=== PATIENT | male | born 1950 | race Caucasian/White ===

== ENCOUNTER 2018-04-18 16:54 | Inpatient (IN) | payer MEDICARE, OTHER, SELFPAY ==
[2018-04-18] VITALS (8 sets, daily range): BP systolic 122–142; BP diastolic 67–75; PULSE 69–81; RESP 16–20; TEMP 36.6; O2SAT 92–97; BMI 39.4; BMI 39.3
--- NOTE | 2018-04-18 17:11 | EKG12_ITS ---
Test Reason : SOB Blood Pressure : / mmHG Vent. Rate : 067 BPM Atrial Rate : 067 BPM P-R Int : 162 ms QRS Dur : 086 ms QT Int : 404 ms P-R-T Axes : 035 050 040 degrees QTc Int : 426 ms Normal sinus rhythm Normal ECG Confirmed by LITTLE POE MD ([id number]), medical transcription editor HE TRAN ([id number]) on 04/22/2018 3:37:57 PM Referred By: Confirmed By:LITTLE POE MD
--- NOTE | 2018-04-18 17:15 | ED.DCSUM_ITS ---
- ER Visit Summary Date of Service: 04/18/18 Chief Complaint: Shortness of breath History of Present Illness: The patient is a 67 M presenting with shortness of breath. He states this has been ongoing for the past week but worsened today. He has a productive cough. He denies chest pain. Denies fever. He has had rhinorrhea and sore throat. He was seen at urgent care on April 10. At that time he was given an albuterol inhaler, doxycycline, guaifenesin, prednisone. He finished the prednisone and is still taking doxycycline. He went back to urgent care today and they sent him to the ED for further evaluation. Physical Examination: Vitals are stable. Patient is afebrile. Alert no acute distress. HEENT exam pharyngeal erythema with no exudate, uvula midline. No tongue swelling Neck is supple. Lungs are diminished bilaterally. Heart is regular rate and rhythm. Abdomen is soft nontender nondistended. Extremities are unremarkable. Skin is warm and dry. No rash No focal neurologic deficit. Remainder of exam is unremarkable. Emergency Department Course and Treatment: Patient was given albuterol, Atrovent aerosols. EKG is sinus rate 67. CBC shows a white count 13.2. Chemistries show glucose 136. Troponin is negative. D-dimer is negative. Rapid strep and rapid flu were both negative. Chest x-ray shows no acute process. He is given Solu-Medrol IV. With ambulation his pulse ox is 85% on room air. Will discuss with the hospitalist for admission. Disposition: Admission Impression: Bronchitis, hypoxia This note was generated with [email or web address] dictation software. It may contain incorrect words, spelling, and punctuation that were not noted in review of the chart prior to signing ED Disposition - Plan for ED Patient: Chief Complaint: Shortness of Breath Referrals: Trisha Barros MD [Primary Care Provider] -
--- NOTE | 2018-04-18 17:20 | RAD_ITS ---
STUDY: X-RAY CHEST REASON FOR EXAM: Male, 67 years old. Shortness of breath TECHNIQUE: Single frontal view of the chest. COMPARISON: None. FINDINGS: The lungs are clear and expanded. There is no demonstrated pleural abnormality. Normal size heart. Normal mediastinum and valerio. Normal visualized pulmonary arteries. Normal visualized aortic arch and descending thoracic aorta. Normal visualized thoracic spine. Normal visualized ribs, clavicles, and shoulders. There is no demonstrated abnormality of the visualized soft tissue structures of the upper abdomen. RAD/Chest 1 View (Portable) IMPRESSION: Normal x-ray examination of the chest. Electronically Signed: Leroy Solano MD at 18:26 EST , Service support ,
[2018-04-18 17:31] LABS: Absolute Lymphocyte Count 2.74 X10^3/ul (0.83-4.51); Absolute Neutrophil Count 8.8 X10^3/uL (2.0-7.7); Basophil# 0.04 X10^3/uL; Basophil% 0.3 % (0-1); Eosinophil# 0.54 X10^3/uL; Eosinophils% 4.1 % (0-5); Hematocrit 49.9 % (40-54); Hemoglobin 15.9 g/dl (13.0-16.5); Lymphocyte # 2.74 X10^3/ul (4.0); Lymphocyte % 20.7 % (19-41); Mean Corp Hgb Conc 31.9 g/gl (32-36); Mean Corpuscular Hgb 28.6 pg (27.0-32.0); Mean Corpuscular Volume 89.7 fL (80-94); Mean Platelet Vol. 9.3 fl (6.2-12.0); Monocyte# 1.03 X10^3/uL; Monocyte% 7.8 % (0-10); Neutrophil # 8.82 X10^3/uL (2.7-7.7); Neutrophil % 66.6 % (47-70); Platelet Count 292 K/mm3 (150-450); RBC Distribution Width CV 14.5 % (11.6-14.6); RBC Distribution Width SD 46.9 fl (35.1-43.9); Red Blood Count 5.56 M/mm3 (4.6-6.2); White Blood Count 13.2 K/mm3 (4.4-11.0)
[2018-04-18] MEDS: Albuterol 2.5 MG/3 ML VIAL.NEB. INHALATION ×2 (17:32→17:42)
[2018-04-18] MEDS: Ipratropium/Albuterol Sulfate 3 ML AMPUL.NEB INHALATION ×2 (17:32→23:01)
[2018-04-18 17:56] LABS: Anion Gap 6 (5-15); BUN 10 mg/dL (7-18); BUN/Creat Ratio 13.4 RATIO (10-20); Calcium,Total 9.3 mg/dL (8.5-10.1); Chloride 102 mmol/L (98-107); Creatinine, Serum 0.74 mg/dL (0.70-1.30); EST Glomerular Filtration Rate 111 mL/min (>60); Est Glom Filt Rate - Afr Amer 134 mL/min (>60); Glucose 136 mg/dL (74-106); Sodium Level 140 mmol/L (136-145)
[2018-04-18 17:57] LABS: POSITIVE COUNT NO; POSITIVE DIFFERENTIAL NO; POSITIVE MORPHOLOGY NO
[2018-04-18] MEDS: MethylPREDNISolone 125 MG/2 ML Vial IV (18:58)
--- NOTE | 2018-04-18 20:02 | HP.PCM_ITS ---
Problem List (1) Acute and chronic respiratory failure with hypoxia Status: Chronic (2) Possible COPD/obesity hypoventilation sy Status: Acute (3) Traumatic open wound of left lower leg with infection Status: Acute (4) Skin tear of left lower leg without complication Status: Acute (5) Venous insufficiency of both lower extremities Status: Chronic (6) Nonhealing ulcer of right lower leg Status: Acute (7) Hypothyroidism Status: Chronic (8) 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 (9) Venous insufficiency of both lower extremities Status: Chronic (10) Traumatic open wound of right lower leg with delayed healing Status: Acute (11) Traumatic open wound of right lower leg with infection Status: Acute History of Present Illness Date of Admission: 04/18/18 Chief Complaint: Shortness of breath, wheezing for 2-3 weeks The patient is a 67 year old M with history of trauma with big tumor board fell on his head status post left-sided weakness and, in 1970s, bilateral lower legs venous insufficiency with history of wound came to ER with shortness of breath and wheezing for the last 2-3 weeks. Patient also has cough with a small clear sputum. He complains of URI with sore throat and rhinorrhea. He was seen at urgent care number first and was given doxycycline, albuterol inhaler, Mucinex and prednisone. He completed about 10 days of doxycycline and prednisone is still shortness of breath, wheezing and cough not getting better. He gets easily short of breath on mild exertion. He went back to see urgent care and was sent to ER. He denies fever or chills. He was not able to lay down yesterday and slept on the recliner. Denies history of COPD/CHF/smoking but I think he might have undiagnosed COPD or obesity hypoventilation syndrome. In ED, vitals pulse ox 95% on room air but on walking pulse ox dropped to 85% on room air. Rapid strep and flu test are negative. Mild leukocytosis. Chest x- ray shows underventilation But no acute process. EKG normal sinus rhythm at 67 bpm [] Past Medical History Past Medical History (Chronic Problems): Chronic Problems Acute and chronic respiratory failure with hypoxia (Chronic) Venous insufficiency of both lower extremities (Chronic) Hypothyroidism (Chronic) Hemiplegia affecting left nondominant side (Chronic) Venous insufficiency of both lower extremities (Chronic) Allergies No Known Allergies Allergy (Verified 04/18/18 16:55) Home Medications: Ambulatory Orders Medication Instructions Recorded Albuterol IH (ProAir) [Proair Hfa] 2 puff INHALATION Q4H PRN PRN 04/18/18 Atorvastatin Calcium 10 mg PO QHS 04/18/18 Betamethasone Valerate [Valisone 1 applicatio TOPICAL DAILY 04/18/18 0.1% Cream] Doxycycline Monohydrate 100 mg PO BID 04/18/18 Levothyroxine [Synthroid] 25 mcg PO SUSA 04/18/18 Levothyroxine [Synthroid] 50 mcg PO MOTUWETHFR 04/18/18 Naproxen 500 mg PO BID 04/18/18 Oxybutynin Chloride [Ditropan Xl] 5 mg PO DAILY 04/18/18 Smoking Status: Never smoker - *Family History Paternal History Items: No pertinent history Review of Systems Constitutional: Reports: Weakness. Denies: Chills, Fever HEENT: Reports: Hard of Hearing, Nasal Congestion, Post Nasal Drip, Sinus Congestion, Sinus Drainage, Sore Throat. Denies: Head Aches Cardiovascular: Reports: Edema. Denies: Chest Pain, Palpitations Respiratory: Reports: Cough, Shortness of breath upon exertion, Sputum production, Wheezing. Denies: Shortness of breath at rest Gastrointestinal: Denies: Abdominal Pain, Nausea, Vomiting Genitourinary: Denies: Dysuria Musculoskeletal: Denies: Joint Pain, Joint Tenderness Skin: Reports: Rash, Skin Changes - Venous dermatitis in both lower legs. Small scab at the lateral aspect of left leg. No open ulcer Neurological: Denies: Numbness, Tingling, Focal weakness Psychiatric: Denies: Anxiety, Depression, Homicidal Ideations, Suicidal Ideations Hematologic/ Lymphatic: Denies: Easy Bruising, Easy Bleeding VTE Information - Inpt Only VTE Present on Admission: No VTE Mechan Device Prophylaxis: Knee High ZACH Hose VTE Pharm Prophylaxis ordered?: Yes Patient Problems: Active and Suspected Problems Possible COPD/obesity hypoventilation sy (Acute) - Physical Exam General: Alert, Oriented x3, Cooperative HEENT: Atraumatic, PERRLA, EOMI, Normocephalic Oral: - - Deep erythema present over soft palate, posterior pharyngeal wall. No ulcer seen Neck: Supple, No JVD, Negative Carotid Bruits Lungs: Diminished, Rhonchi, Short of Breath, Wheezes, - - Diffuse wheezing and egophony heard Cardiovascular: Regular rate, Regular Rhythm, Normal S1, Normal S2, No murmurs Abdomen: Bowel Sounds Present, Soft, Non Tender, Non-Distended Extremities: Capillary Refill Less than 3 Seconds, Diminished Peripheral Pulses - Of both lower legs below knee, Edema Skin: Rash Present - Venous dermatitis over both lower legs. Diminished pulsation Musculoskeletal: No Tenderness to Palpation of Joints or Extremities Neurological: Cranial nerves II-XII grossly intact Psych/Mental Status: Normal Affect, Appropriate Vital Signs Temp Pulse Resp BP Pulse Ox 97.8 F 78 16 122/67 H 97 04/18/18 16:55 04/18/18 19:04 04/18/18 19:04 04/18/18 19:04 04/18/18 19:04 Oxygen Delivery Method Room Air Weight: 230 lb Body Mass Index (BMI) 39.4 Microbiology Past 72 Hours 04/18/18 17:40 Influenza Types A,B Direct FA (MARY KATE) - Final Mucosa - Nose 04/18/18 17:15 Group A Streptococcus Rapid Screen - Preliminary Mucosa - Throat Laboratory Tests Past 24 Hrs 04/18/18 04/18/18 04/18/18 17:23 17:23 17:23 WBC 13.2 H RBC 5.56 Hgb 15.9 Hct 49.9 MCV 89.7 MCH 28.6 MCHC 31.9 L RDW 14.5 RDW Differential 46.9 H Plt Count 292 MPV 9.3 Immature Gran % (Auto) 0.500 Neut % (Auto) 66.6 Lymph % (Auto) 20.7 [place] % (Auto) 7.8 Eos % (Auto) 4.1 Baso % (Auto) 0.3 Absolute Neuts (auto) 8.8 H Absolute Lymphs (auto) 2.74 Total Counted Not Reportable D-Dimer Quant (PE/DVT) 0.30 Sodium 140 Potassium 4.0 Chloride 102 Carbon Dioxide 32.0 Anion Gap 6 BUN 10 Creatinine 0.74 Estim Creat Clear Calc 59.20 Est GFR (MDRD) Af Amer 134 Est GFR (MDRD) Non-Af 111 BUN/Creatinine Ratio 13.4 Glucose 136 H Calcium 9.3 Troponin I < 0.015 Assessment/Plan All Active Problems Possible COPD/obesity hypoventilation sy (Acute) Traumatic open wound of left lower leg with infection (Acute) Skin tear of left lower leg without complication (Acute) Nonhealing ulcer of right lower leg (Acute) Traumatic open wound of right lower leg with delayed healing (Acute) Traumatic open wound of right lower leg with infection (Acute) The patient is a 67 year old M with history of trauma with big tumor board fell on his head status post left-sided weakness and, in 1970s, bilateral lower legs venous insufficiency with history of wound came to ER with shortness of breath and wheezing for the last 2-3 weeks. Patient also has cough with a small clear sputum. He complains of URI with sore throat and rhinorrhea. He was seen at urgent care number first and was given doxycycline, albuterol inhaler, Mucinex and prednisone. He completed about 10 days of doxycycline and prednisone is still shortness of breath, wheezing and cough not getting better. He gets easily short of breath on mild exertion. He went back to see urgent care and was sent to ER. He denies fever or chills. He was not able to lay down yesterday and slept on the recliner. Denies history of COPD/CHF/smoking but I think he might have undiagnosed COPD or obesity hypoventilation syndrome. In ED, vitals pulse ox 95% on room air but on walking pulse ox dropped to 85% on room air. Rapid strep and flu test are negative. Mild leukocytosis. Chest x- ray shows underventilation But no acute process. EKG normal sinus rhythm at 67 bpm. 1. Acute hypoxic respiratory failure probably from undiagnosed COPD exacerbation: Patient is being admitted to regular MedSurg floor. On COPD protocol. Oxygen therapy. 2. Possible undiagnosed COPD/obesity hypoventilation with exacerbation: Started on DuoNeb, albuterol as needed, incentive spirometry, chest physiotherapy, Mucinex. BNP ordered. 2D echo tomorrow a.m to rule out heart failure/pulmonary hypertension. Respiratory panel ordered. Urinary antigens and sputum culture ordered. Patient will need outpatient PFT and sleep study. 3. Possible viral bronchitis 4. Bilateral lower legs chronic venous insufficiency with stasis dermatitis: Patient follows Dr. Navarro. Patient had venous laser surgery in the past. Bilateral knee-high ZACH hose. Venous Doppler ordered to rule out DVT. 5. Other chronic comorbidities include hypothyroidism, hemiplegia of left nondominant site most probably traumatic in nature as per patient's and history of skin tear nonhealing ulcer in the left leg.: Currently patient does not have open ulcer in the left leg. Wound care nurse consult ordered for f joether opinion. Calmoseptine ointment. DVT prophylaxis: On Lovenox This note was generated with [employer] dictation software. Every effort was made to ensure accuracy, however computerized corrugator machine operator mistakes may persist. Code Visit Inpatient E&M: 89541 Init Hosp L3
[2018-04-18] MEDS: Atorvastatin Calcium 10 MG Tablet PO (22:03)
[2018-04-18] MEDS: Enoxaparin 40 MG/0.4 ML Syringe SC (22:04)
[2018-04-18] MEDS: guaiFENesin 1,200 MG Tablet 1200 MG PO (22:04)
[2018-04-18 22:15] LABS: BNP,B-Type NATRIURETIC PEPTIDE 10.3 pg/mL (0-100)
[2018-04-19] VITALS (10 sets, daily range): BP systolic 111–143; BP diastolic 66–90; PULSE 76–96; RESP 16–20; TEMP 36.7–37.2; O2SAT 92–96
--- NOTE | 2018-04-19 05:55 | ECHOCS_ITS ---
Reason For Study: SOB/ Wheezing Procedure This was a 2D Doppler, Color Flow transthoracic echocardiogram. The study was technically difficult. Contrast injection was performed. Exam performed portable in patient room. Left Ventricle Normal LV size. Moderate concentric left ventricular hypertrophy. The estimated ejection fraction is 75 %. Stage 1 diastolic dysfunction. No regional wall motion abnormalities noted. Right Ventricle Normal size and thickness. Normal systolic function. Atria Normal left atrium. Normal right atrium. Normal atrial septum. Mitral Valve The mitral valve is structurally normal. No prolapse or stenosis seen. Tricuspid Valve Normal tricuspid valve. Unable to estimate RV systolic pressure due to inadequate jet, pulmonary artery pressure probably normal. Aortic Valve Normal aortic valve. Trisinus/trileaflet aortic valve. Pulmonic Valve The pulmonic valve is not well visualized. Great Vessels Normal aortic root. Normal arch. Pericardium/Pleural No pericardial effusion. Medication Diluted definity 2ml given slow IV push to enhance endocardial definition. MMode/2D Measurements & Calculations LVIDd: 3.7 cm IVSd: 1.6 cm Ao root diam: 4.0 cm LVIDs: 1.8 cm LVPWd: 1.3 cm FS: 51.0 % Time Measurements MV dec time: 0.18 sec Doppler Measurements & Calculations MV E max jean marie: 74.1 cm/sec Lat Peak E' Jean Marie: 8.1 cm/sec Med Peak E' Jean Marie: 7.0 cm/sec MV A max jean marie: 103.1 cm/sec E/E' lat: 9.1 E/E' med: 10.5 MV E/A: 0.72 MV V2 max: 120.4 cm/sec MV P1/2t max jean marie: 102.1 cm/sec Ao V2 max: 130.0 cm/sec MV max P.8 mmHg MV P1/2t: 48.8 msec Ao max P.8 mmHg MV V2 mean: 75.2 cm/sec MV dec slope: 612.5 cm/sec2 Ao V2 mean: 92.0 cm/sec MV mean P.5 mmHg MVA(P1/2t): 4.5 cm2 Ao mean P.8 mmHg MV V2 VTI: 23.0 cm Ao V2 VTI: 24.0 cm LV V1 max: 111.2 cm/sec PA V2 max: 116.5 cm/sec LV V1 max P.9 mmHg LV V1 mean P.7 mmHg LV V1 mean: 76.2 cm/sec LV V1 VTI: 17.7 cm Interpretation Summary Moderate concentric left ventricular hypertrophy. The estimated ejection fraction is 75 %. Stage 1 diastolic dysfunction. Unable to estimate RV systolic pressure due to inadequate jet, pulmonary artery pressure probably normal. Compared to echo report dated 08/10/2009, no appreciable changes noted. The study was technically difficult. Contrast injection was performed. Ordering Physician: Tal Ronquillo Referring Physician: Trisha Barros M.D. Performed By: Phani Kovacs RCS
[2018-04-19] MEDS: Levothyroxine 25 MCG TABLET PO (05:57)
[2018-04-19] MEDS: Ipratropium/Albuterol Sulfate 3 ML AMPUL.NEB INHALATION ×4 (06:44→19:03)
[2018-04-19 07:20] LABS: Absolute Lymphocyte Count 1.01 X10^3/ul (0.83-4.51); Absolute Neutrophil Count 12.9 X10^3/uL (2.0-7.7); Basophil# 0.01 X10^3/uL; Basophil% 0.1 % (0-1); Eosinophil# 0.01 X10^3/uL; Eosinophils% 0.1 % (0-5); Hematocrit 46.2 % (40-54); Hemoglobin 15.2 g/dl (13.0-16.5); Lymphocyte # 1.01 X10^3/ul (4.0); Lymphocyte % 7.2 % (19-41); Mean Corp Hgb Conc 32.9 g/gl (32-36); Mean Corpuscular Hgb 28.7 pg (27.0-32.0); Mean Corpuscular Volume 87.2 fL (80-94); Mean Platelet Vol. 9.8 fl (6.2-12.0); Monocyte# 0.07 X10^3/uL; Monocyte% 0.5 % (0-10); Neutrophil # 12.94 X10^3/uL (2.7-7.7); Neutrophil % 91.6 % (47-70); POSITIVE COUNT NO; POSITIVE DIFFERENTIAL NO; POSITIVE MORPHOLOGY NO; Platelet Count 310 K/mm3 (150-450); RBC Distribution Width CV 14.4 % (11.6-14.6); RBC Distribution Width SD 45.9 fl (35.1-43.9); White Blood Count 14.1 K/mm3 (4.4-11.0)
[2018-04-19 07:46] LABS: ALB/GLOB Ratio 0.8 RATIO (0.9-2.4); AST(SGOT) 12 U/L (15-37); Alanine Aminotransfer ALT/SGPT 25 U/L (16-61); Albumin, Serum 3.1 g/dL (3.2-5.0); Alkaline Phosphatase 107 U/L (45-117); Anion Gap 8 (5-15); BUN 10 mg/dL (7-18); Calcium,Total 8.8 mg/dL (8.5-10.1); Chloride 103 mmol/L (98-107); Creatinine, Serum 0.83 mg/dL (0.70-1.30); EST Glomerular Filtration Rate 97 mL/min (>60); Est Glom Filt Rate - Afr Amer 118 mL/min (>60); Estimated Creatinine Clearance 71.33 ml/min; Globulin 3.9 g/dL (2.2-4.2); Glucose 225 mg/dL (74-106); Sodium Level 139 mmol/L (136-145); T4 Free Direct 0.87 ng/dL (0.76-1.46); Thyroid Stim Hormone (TSH) 0.51 uIU/mL (0.358-3.74)
[2018-04-19 08:06] LABS: Hemoglobin A1c 6.5 % (4.2-6.3)
--- NOTE | 2018-04-19 08:34 | NURSING ---
cardiac in room doing echo test
[2018-04-19] MEDS: Oxybutynin 5 MG Tablet PO (08:52)
[2018-04-19] MEDS: Enoxaparin 40 MG/0.4 ML Syringe SC (08:52)
[2018-04-19] MEDS: guaiFENesin 1,200 MG Tablet 1200 MG PO ×2 (08:53→21:25)
--- NOTE | 2018-04-19 10:34 | PCM.PN.HOSP ---
Patient Problems: Active and Suspected Problems Possible COPD/obesity hypoventilation sy (Acute) Subjective: Patient seen and examined. He was admitted yesterday with a complaint of shortness of breath and wheezing. He also assisted cough with small clear sputum and also had upper respiratory tract symptoms resolved with no rhinorrhea. He had completed a course of doxycycline and prednisone. However shortness of breath persisted and wheezing and so he came into the ED. His walking pulse ox was 85% on room in the ED and flu test done rapid strep test were negative. Chest x-ray showed underventilation. EKG was otherwise negative. He is being managed for acute hypoxic respiratory failure due to possible COPD exacerbation. He feels better today and SOB has improved. He denies any wheezing, chest pain, lightheadedness, abdominal pain, palpitations, diarrhea or vomiting. Review of systems was otherwise negative. Labs and vitals reviewed. Vitals/I&O's: Vital Signs Temp Pulse Resp BP Pulse Ox 98.6 F 90 18 129/70 H 95 04/19/18 08:45 04/19/18 08:45 04/19/18 08:45 04/19/18 08:45 04/19/18 08:45 Oxygen Delivery Method Room Air Weight: 229 lb 1 oz Body Mass Index (BMI) 39.3 Intake and Output for Last 24 Hours 04/17/18 04/18/18 04/19/18 23:59 23:59 23:59 Intake Total 600 / 600 Balance 600 / 600 General: Alert, Oriented x3, Cooperative, No apparent distress HEENT: Atraumatic, PERRLA, EOMI, Normocephalic Oral: Moist Mucosa Neck: Supple, No JVD, Negative Carotid Bruits, Negative Hepatojugular Reflux, No Nodes, No Nuchal Rigidity Lungs: Wheezes - bilateral mild wheezes and few crackles bilaterally. Cardiovascular: Regular rate, Regular Rhythm, Normal S1, Normal S2, No murmurs Abdomen: Bowel Sounds Present, Soft, Non Tender, Non-Distended, No Hepato-splenomegaly Extremities: No clubbing, No cyanosis, No edema, Capillary Refill Less than 3 Seconds Skin: No rashes, No breakdown Musculoskeletal: No Tenderness to Palpation of Joints or Extremities Lymphatic: No Cervical, Supraclavicular, or Inguinal Adenopathy Neurological: Cranial nerves II-XII grossly intact, Neuro grossly intact, Motor Exam 5/5 strength throughout Psych/Mental Status: Normal Affect, Appropriate, Alert and oriented to time, place, person, mood and affect Microbiology Past 72 Hours 04/18/18 17:15 Mucosa - Throat Group A Streptococcus Rapid Screen - Preliminary 04/18/18 22:20 Urine, Random Legionella Antigen - Final 04/18/18 22:20 Urine, Random Streptococcus pneumoniae Antigen (M - Final 04/18/18 17:40 Mucosa - Nose Influenza Types A,B Direct FA (MARY KATE) - Final Laboratory Results 04/18/18 17:23: WBC 13.2 H, RBC 5.56, Hgb 15.9, Hct 49.9, MCV 89.7, MCH 28.6, MCHC 31.9 L, RDW 14.5, RDW Differential 46.9 H, Plt Count 292, MPV 9.3, Immature Gran % (Auto) 0.500, Neut % (Auto) 66.6, Lymph % (Auto) 20.7, [place] % (Auto) 7.8, Eos % (Auto) 4.1, Baso % (Auto) 0.3, Absolute Neuts (auto) 8.8 H, Absolute Lymphs (auto) 2.74, Total Counted Not Reportable 04/18/18 17:23: D-Dimer Quant (PE/DVT) 0.30 04/18/18 17:23: Sodium 140, Potassium 4.0, Chloride 102, Carbon Dioxide 32.0, Anion Gap 6, BUN 10, Creatinine 0.74, Estim Creat Clear Calc 59.20, Est GFR (MDRD) Af Amer 134, Est GFR (MDRD) Non-Af 111, BUN/Creatinine Ratio 13.4, Glucose 136 H, Calcium 9.3, Troponin I < 0.015 04/18/18 17:23: B-Natriuretic Peptide 10.3 04/19/18 06:55: WBC 14.1 H, RBC 5.30, Hgb 15.2, Hct 46.2, MCV 87.2, MCH 28.7, MCHC 32.9, RDW 14.4, RDW Differential 45.9 H, Plt Count 310, MPV 9.8, Immature Gran % (Auto) 0.500, Neut % (Auto) 91.6 H, Lymph % (Auto) 7.2 L, [place] % (Auto) 0.5, Eos % (Auto) 0.1, Baso % (Auto) 0.1, Absolute Neuts (auto) 12.9 H, Absolute Lymphs (auto) 1.01, Total Counted Not Reportable 04/19/18 06:55: Hemoglobin A1c 6.5 H 04/19/18 06:55: Sodium 139, Potassium 4.0, Chloride 103, Carbon Dioxide 28.0, Anion Gap 8, BUN 10, Creatinine 0.83, Estim Creat Clear Calc 71.33, Est GFR (MDRD) Af Amer 118, Est GFR (MDRD) Non-Af 97, BUN/Creatinine Ratio 12.0, Glucose 225 H, Calcium 8.8, Total Bilirubin 0.40, AST 12 L, ALT 25, Alkaline Phosphatase 107, Total Protein 7.0, Albumin 3.1 L, Globulin 3.9, Albumin/Globulin Ratio 0.8 L, TSH 0.51, Free T4 0.87 Diagnostic Data Chest X-Ray 04/18/18 17:20 IMPRESSION: Normal x-ray examination of the chest. Electronically Signed: Leroy Solano MD at 18:26 EST , Service support , Current Medications Acetaminophen (Tylenol) 650 mg PO Q6H PRN PRN PRN Reason: Mild Pain (scale 0-3)/T>100.7 Al Hydroxide/Mg Hydroxide (Mylanta Ii) 30 ml PO Q6H PRN PRN PRN Reason: Gastric Burning Albuterol Sulfate (Ventolin Aerosols) 2.5 mg INHALATION Q2H PRN PRN PRN Reason: SHORTNESS OF BREATH Albuterol/Ipratropium (Duoneb) 3 ml INHALATION Q4HWA.RT MIA Last Admin: 04/19/18 06:44 Dose: 3 ml Atorvastatin Calcium (Lipitor) 10 mg PO QHS MIA Last Admin: 04/18/18 22:03 Dose: 10 mg Betamethasone Valerate (Valisone 0.1% Cream) 1 applic TOPICAL DAILY MIA; Protocol Last Admin: 04/19/18 08:53 Dose: 1 applic Bisacodyl (Dulcolax) 10 mg RECTAL DAILY PRN PRN PRN Reason: Constipation Calamine/Phenol (Calmoseptine Ointment) 1 applic TOPICAL BID [facility]; Protocol Last Admin: 04/19/18 08:52 Dose: Not Given Docusate Sodium (Colace) 200 mg PO BID PRN PRN PRN Reason: Constipation Enoxaparin Sodium (Lovenox) 40 mg SC DAILY [facility] Last Admin: 04/19/18 08:52 Dose: 40 mg Guaifenesin (Mucinex) 1,200 mg PO BID [facility] Last Admin: 04/19/18 08:53 Dose: 1,200 mg Levothyroxine Sodium (Synthroid) 25 mcg PO SuSa@0600 [facility] Last Admin: 04/19/18 05:57 Dose: 25 mcg Levothyroxine Sodium (Synthroid) 50 mcg PO MoTuWeThFr@0600 [facility] Methylprednisolone (Solu-Medrol) 40 mg IV Q8 [facility] Last Admin: 04/19/18 05:57 Dose: 40 mg Morphine Sulfate () 1 - 2 mg IV Q4H PRN PRN PRN Reason: SEVERE PAIN (6-10) Naproxen (Naprosyn) 500 mg PO BID PRN PRN PRN Reason: arthritis pain Ondansetron HCl (Zofran) 4 mg IV Q8H PRN PRN PRN Reason: Nausea Oxybutynin Chloride (Ditropan) 5 mg PO DAILY [facility] Last Admin: 04/19/18 08:52 Dose: 5 mg Oxycodone HCl (Oxyir) 5 mg PO Q4H PRN PRN PRN Reason: Moderate Pain (pain scale 4-5) Polyethylene Glycol (Miralax) 17 gm PO DAILY [facility] Last Admin: 04/19/18 08:53 Dose: Not Given Sodium Chloride () 5 - 30 ml IV UD PRN PRN Reason: SALINE FLUSH Medical Necessity - Tobacco Use Smoking Status: Never smoker Assessment/Plan All Active Problems Possible COPD/obesity hypoventilation sy (Acute) Traumatic open wound of left lower leg with infection (Acute) Skin tear of left lower leg without complication (Acute) Nonhealing ulcer of right lower leg (Acute) Traumatic open wound of right lower leg with delayed healing (Acute) Traumatic open wound of right lower leg with infection (Acute) 1. Acute hypoxic respiratory failure, due to possible COPD exacerbatin vs obesity hypoventilation syndrome Was saturating at 85% with walking pulse ox in the ED and this resolved without excision of oxygen. Does not have a history of COPD. 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 Has bilateral coarse crackles and wheezing still. BMI 39.3 obesity hypoventilation syndrome. Has never had a PFT. Continue Breathing treatments and prednisone. Titrate oxygen to maintain saturation above 92% and goal is to wean off of oxygen. BNP was just 10 ruling out any heart failure. Echo done and is pending. Influenza Screen was negative and urine for pneumonia and Legionella negative. Will need PFTs and sleep study on outpatient basis. 2. Bilateral lower extremity chronic venous insufficiency: Also stasis dermatitis. Follows up with Dr. Navarro and has had venous stasis surgery in the past. ZACH hose stockings. Duplex ordered to rule out DVT and is pending. 3. Hypothyroidism: On Synthroid. 4. 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 Leucocytosis: white cell count is 14. Likely due to steroids. No evidence of infection. Will monitor DVT prophylaxis: Haileyx Code Visit Inpatient E&M: 53240 Subs Hosp L3
--- NOTE | 2018-04-19 10:39 | PN_ITS ---
Patient Problems: Active and Suspected Problems Possible COPD/obesity hypoventilation sy (Acute) Subjective: Patient seen and examined. He was admitted yesterday with a complaint of shortness of breath and wheezing. He also assisted cough with small clear sputum and also had upper respiratory tract symptoms resolved with no rhin orrhea. He had completed a course of doxycycline and prednisone. However shortness of breath persisted and wheezing and so he came into the ED. His walking pulse ox was 85% on room in the ED and flu test done rapid strep test were negative. Chest x-ray showed underventilation. EKG was otherwise negative. He is being managed for acute hypoxic respiratory failure due to possible COPD exacerbation. He feels better today and SOB has improved. He denies any wheezing, chest pain, lightheadedness, abdominal pain, palpitations, diarrhea or vomiting. Review of systems was otherwise negative. Labs and vitals reviewed. Vitals/I&O's: Vital Signs Temp Pulse Resp BP Pulse Ox 98.6 F 90 18 129/70 H 95 04/19/18 08:45 04/19/18 08:45 04/19/18 08:45 04/19/18 08:45 04/19/18 08:45 Oxygen Delivery Method Room Air Weight: 229 lb 1 oz Body Mass Index (BMI) 39.3 Intake and Output for Last 24 Hours 04/17/18 04/18/18 04/19/18 23:59 23:59 23:59 Intake Total 600 / 600 Balance 600 / 600 General: Alert, Oriented x3, Cooperative, No apparent distress HEENT: Atraumatic, PERRLA, EOMI, Normocephalic Oral: Moist Mucosa Neck: Supple, No JVD, Negative Carotid Bruits, Negative Hepatojugular Reflux, No Nodes, No Nuchal Rigidity Lungs: Wheezes - bilateral mild wheezes and few crackles bilaterally. Cardiovascular: Regular rate, Regular Rhythm, Normal S1, Normal S2, No murmurs Abdomen: Bowel Sounds Present, Soft, Non Tender, Non-Distended, No Hepato- splenomegaly Extremities: No clubbing, No cyanosis, No edema, Capillary Refill Less than 3 Seconds Skin: No rashes, No breakdown Musculoskeletal: No Tenderness to Palpation of Joints or Extremities Lymphatic: No Cervical, Supraclavicular, or Inguinal Adenopathy Neurological: Cranial nerves II-XII grossly intact, Neuro grossly intact, Motor Exam 5/5 strength throughout Psych/Mental Status: Normal Affect, Appropriate, Alert and oriented to time, place, person, mood and affect Microbiology Past 72 Hours 04/18/18 17:15 Mucosa - Throat Group A Streptococcus Rapid Screen - Preliminary 04/18/18 22:20 Urine, Random Legionella Antigen - Final 04/18/18 22:20 Urine, Random Streptococcus pneumoniae Antigen (M - Final 04/18/18 17:40 Mucosa - Nose Influenza Types A,B Direct FA (MARY KATE) - Final Laboratory Results 04/18/18 17:23: WBC 13.2 H, RBC 5.56, Hgb 15.9, Hct 49.9, MCV 89.7, MCH 28.6, MCHC 31.9 L, RDW 14.5, RDW Differential 46.9 H, Plt Count 292, MPV 9.3, Immature Gran % (Auto) 0.500, Neut % (Auto) 66.6, Lymph % (Auto) 20.7, [place] % (Auto) 7.8, Eos % (Auto) 4.1, Baso % (Auto) 0.3, Absolute Neuts (auto) 8.8 H, Absolute Lymphs (auto) 2.74, Total Counted Not Reportable 04/18/18 17:23: D-Dimer Quant (PE/DVT) 0.30 04/18/18 17:23: Sodium 140, Potassium 4.0, Chloride 102, Carbon Dioxide 32.0, Anion Gap 6, BUN 10, Creatinine 0.74, Estim Creat Clear Calc 59.20, Est GFR (MDRD) Af Amer 134, Est GFR (MDRD) Non-Af 111, BUN/Creatinine Ratio 13.4, Glucose 136 H, Calcium 9.3, Troponin I < 0.015 04/18/18 17:23: B-Natriuretic Peptide 10.3 04/19/18 06:55: WBC 14.1 H, RBC 5.30, Hgb 15.2, Hct 46.2, MCV 87.2, MCH 28.7, MCHC 32.9, RDW 14.4, RDW Differential 45.9 H, Plt Count 310, MPV 9.8, Immature Gran % (Auto) 0.500, Neut % (Auto) 91.6 H, Lymph % (Auto) 7.2 L, [place] % (Auto) 0.5, Eos % (Auto) 0.1, Baso % (Auto) 0.1, Absolute Neuts (auto) 12.9 H, Absolute Lymphs (auto) 1.01, Total Counted Not Reportable 04/19/18 06:55: Hemoglobin A1c 6.5 H 04/19/18 06:55: Sodium 139, Potassium 4.0, Chloride 103, Carbon Dioxide 28.0, Anion Gap 8, BUN 10, Creatinine 0.83, Estim Creat Clear Calc 71.33, Est GFR (MDRD) Af Amer 118, Est GFR (MDRD) Non-Af 97, BUN/Creatinine Ratio 12.0, Glucose 225 H, Calcium 8.8, Total Bilirubin 0.40, AST 12 L, ALT 25, Alkaline Phosphatase 107, Total Protein 7.0, Albumin 3.1 L, Globulin 3.9, Albumin/Globulin Ratio 0.8 L, TSH 0.51, Free T4 0.87 Diagnostic Data Chest X-Ray 04/18/18 17:20 IMPRESSION: Normal x-ray examination of the chest. Electronically Signed: Leroy Solano MD at 18:26 EST , Service support , Current Medications Acetaminophen (Tylenol) 650 mg PO Q6H PRN PRN PRN Reason: Mild Pain (scale 0-3)/T>100.7 Al Hydroxide/Mg Hydroxide (Mylanta Ii) 30 ml PO Q6H PRN PRN PRN Reason: Gastric Burning Albuterol Sulfate (Ventolin Aerosols) 2.5 mg INHALATION Q2H PRN PRN PRN Reason: SHORTNESS OF BREATH Albuterol/Ipratropium (Duoneb) 3 ml INHALATION Q4HWA.RT MIA Last Admin: 04/19/18 06:44 Dose: 3 ml Atorvastatin Calcium (Lipitor) 10 mg PO QHS [facility] Last Admin: 04/18/18 22:03 Dose: 10 mg Betamethasone Valerate (Valisone 0.1% Cream) 1 applic TOPICAL DAILY [facility]; Protocol Last Admin: 04/19/18 08:53 Dose: 1 applic Bisacodyl (Dulcolax) 10 mg RECTAL DAILY PRN PRN PRN Reason: Constipation Calamine/Phenol (Calmoseptine Ointment) 1 applic TOPICAL BID [facility]; Protocol Last Admin: 04/19/18 08:52 Dose: Not Given Docusate Sodium (Colace) 200 mg PO BID PRN PRN PRN Reason: Constipation Enoxaparin Sodium (Lovenox) 40 mg SC DAILY [facility] Last Admin: 04/19/18 08:52 Dose: 40 mg Guaifenesin (Mucinex) 1,200 mg PO BID [facility] Last Admin: 04/19/18 08:53 Dose: 1,200 mg Levothyroxine Sodium (Synthroid) 25 mcg PO SuSa@0600 [facility] Last Admin: 04/19/18 05:57 Dose: 25 mcg Levothyroxine Sodium (Synthroid) 50 mcg PO MoTuWeThFr@0600 [facility] Methylprednisolone (Solu-Medrol) 40 mg IV Q8 [facility] Last Admin: 04/19/18 05:57 Dose: 40 mg Morphine Sulfate () 1 - 2 mg IV Q4H PRN PRN PRN Reason: SEVERE PAIN (6-10) Naproxen (Naprosyn) 500 mg PO BID PRN PRN PRN Reason: arthritis pain Ondansetron HCl (Zofran) 4 mg IV Q8H PRN PRN PRN Reason: Nausea Oxybutynin Chloride (Ditropan) 5 mg PO DAILY [facility] Last Admin: 04/19/18 08:52 Dose: 5 mg Oxycodone HCl (Oxyir) 5 mg PO Q4H PRN PRN PRN Reason: Moderate Pain (pain scale 4-5) Polyethylene Glycol (Miralax) 17 gm PO DAILY [facility] Last Admin: 04/19/18 08:53 Dose: Not Given Sodium Chloride () 5 - 30 ml IV UD PRN PRN Reason: SALINE FLUSH Medical Necessity - Tobacco Use Smoking Status: Never smoker Assessment/Plan All Active Problems Possible COPD/obesity hypoventilation sy (Acute) Traumatic open wound of left lower leg with infection (Acute) Skin tear of left lower leg without complication (Acute) Nonhealing ulcer of right lower leg (Acute) Traumatic open wound of right lower leg with delayed healing (Acute) Traumatic open wound of right lower leg with infection (Acute) 1. Acute hypoxic respiratory failure, due to possible COPD exacerbatin vs obesity hypoventilation syndrome * Was saturating at 85% with walking pulse ox in the ED and this resolved without excision of oxygen. * Does not have a history of COPD. 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 * Has bilateral coarse crackles and wheezing still. * BMI 39.3 obesity hypoventilation syndrome. Has never had a PFT. Continue * Breathing treatments and prednisone. Titrate oxygen to maintain saturation above 92% and goal is to wean off of oxygen. * BNP was just 10 ruling out any heart failure. Echo done and is pending. * Influenza Screen was negative and urine for pneumonia and Legionella negative. * Will need PFTs and sleep study on outpatient basis. * 2. Bilateral lower extremity chronic venous insufficiency: * Also stasis dermatitis. * Follows up with Dr. Navarro and has had venous stasis surgery in the past. * ZACH hose stockings. * Duplex ordered to rule out DVT and is pending. 3. Hypothyroidism: On Synthroid. 4. 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 Leucocytosis: white cell count is 14. Likely due to steroids. No evidence of infection. Will monitor DVT prophylaxis: Lovenox Code Visit Inpatient E&M: 37920 Subs Hosp L3
--- NOTE | 2018-04-19 11:03 | DCINST_ITS ---
- Discharge Diagnoses Current Active Problems: Current Active and Chronic Problems Acute and chronic respiratory failure with hypoxia (Chronic) Possible COPD/obesity hypoventilation sy (Acute) You will use the following diet at home:: Cardiac Your food should be the consistency of: Regular Your liquids should be the consistency of: Regular/Thin Discharge Activity: Return to Normal Activity Weight Bearing Status: Weight bearing as tolerated Call your doctor if you observe: Fever of 101 or Higher, Shortness of breath, Chest pain, Increased palpitations (irregular heartbeat) Allergies/Adverse Reactions: Allergies No Known Allergies Allergy (Verified 04/18/18 16:55) Medications to take at Discharge Albuterol IH (ProAir) [Proair Hfa] 2 puff INHALATION Q4H PRN PRN 04/18/18 Atorvastatin Calcium 10 mg PO QHS 04/18/18 Betamethasone Valerate [Valisone 0.1% Cream] 1 applicatio TOPICAL DAILY 04/18/18 Doxycycline Monohydrate 100 mg PO BID 04/18/18 Levothyroxine [Synthroid] 25 mcg PO SUSA 04/18/18 Levothyroxine [Synthroid] 50 mcg PO MOTUWETHFR 04/18/18 Naproxen 500 mg PO BID 04/18/18 Oxybutynin Chloride [Ditropan Xl] 5 mg PO DAILY 04/18/18 Primary Care Physician: Trisha Barros MD [Primary Care Provider] - Please follow up with your Primary Care Physician in: one week Test Results: Test results from this visit will be discussed in further detail at your follow- up appointment, if applicable. Proposed Discharge Date: 04/19/18
--- NOTE | 2018-04-19 12:13 | CM.UR ---
Addendum entered by Estela Puri 04/19/18 16:41: denied any needs at home however she did state they would like coverage built for him when going from house to car as they have no garage. Spoke with TRINA Arreola who gave me information that I passed onto them for [employer] and [employer]. Instructed to give them a call and see if they can do anything to help. Verb understanding. Armando Puri RN, CCM. Original Note: See attached leadership development manager. Met face to face with patient and . Denied anticipating any needs upon discharge. Discussed advance directives. They will discuss. They were given both the Advanced care planning booklet along with the forms. Instructed on requirements for completion and if they decide to do while they are here to alert nurse for SW to come and assist. Verb understanding. Patient has previously used inhalers at home however never used a nebulizer at home. If ordering home aerosol treatments will need nebulizer. Case mgmt will remain available. Armando Puri RN, CCM.
--- NOTE | 2018-04-19 13:14 | NURSING ---
FLU VACCINE SCANNED AND RECORDERED EARLIER NOT ON AUG, FULL DOCUMENTED AT THIS TIME BUT GIVEN @ 1000 MED PASS
[2018-04-19] MEDS: Atorvastatin Calcium 10 MG Tablet PO (21:26)
[2018-04-19] MEDS: 0.9% NaCl Peripheral Flush Adult/Peds IV (21:26)
[2018-04-20] VITALS (7 sets, daily range): BP systolic 123–139; BP diastolic 69–84; PULSE 70–87; RESP 18–20; TEMP 36.3–37; O2SAT 94–96
[2018-04-20] MEDS: 0.9% NaCl Peripheral Flush Adult/Peds IV (05:51)
[2018-04-20] MEDS: Levothyroxine 25 MCG TABLET PO (05:53)
[2018-04-20] MEDS: Ipratropium/Albuterol Sulfate 3 ML AMPUL.NEB INHALATION ×3 (06:50→19:39)
[2018-04-20 07:12] LABS: Anion Gap 12 (5-15); BUN 17 mg/dL (7-18); BUN/Creat Ratio 22.5 RATIO (10-20); Calcium,Total 9.2 mg/dL (8.5-10.1); Chloride 101 mmol/L (98-107); Creatinine, Serum 0.76 mg/dL (0.70-1.30); EST Glomerular Filtration Rate 109 mL/min (>60); Est Glom Filt Rate - Afr Amer 132 mL/min (>60); Glucose 144 mg/dL (74-106); Sodium Level 141 mmol/L (136-145)
[2018-04-20 07:15] LABS: Absolute Lymphocyte Count 0.94 X10^3/ul (0.83-4.51); Absolute Neutrophil Count 25.4 X10^3/uL (2.0-7.7); Basophil# 0.01 X10^3/uL; Hematocrit 48.6 % (40-54); Hemoglobin 15.7 g/dl (13.0-16.5); Lymphocyte # 0.94 X10^3/ul (4.0); Lymphocyte % 3.5 % (19-41); Mean Corp Hgb Conc 32.3 g/gl (32-36); Mean Corpuscular Hgb 28.9 pg (27.0-32.0); Mean Corpuscular Volume 89.3 fL (80-94); Mean Platelet Vol. 10.1 fl (6.2-12.0); Monocyte# 0.63 X10^3/uL; Monocyte% 2.3 % (0-10); Neutrophil # 25.36 X10^3/uL (2.7-7.7); Neutrophil % 93.9 % (47-70); Platelet Count 308 K/mm3 (150-450); RBC Distribution Width CV 14.3 % (11.6-14.6); RBC Distribution Width SD 46.4 fl (35.1-43.9); Red Blood Count 5.44 M/mm3 (4.6-6.2)
[2018-04-20 07:20] LABS: Differential Indicated SCAN CRITERIA MET; POSITIVE COUNT NO; POSITIVE DIFFERENTIAL YES; POSITIVE MORPHOLOGY NO
[2018-04-20] MEDS: Oxybutynin 5 MG Tablet PO (09:38)
[2018-04-20] MEDS: Enoxaparin 40 MG/0.4 ML Syringe SC (09:38)
[2018-04-20] MEDS: guaiFENesin 1,200 MG Tablet 1200 MG PO ×2 (09:39→20:50)
--- NOTE | 2018-04-20 09:57 | PCM.PN.HOSP ---
Patient Problems: Active and Suspected Problems Possible COPD/obesity hypoventilation sy (Acute) Subjective: Patient seen and examined. His was by his bedside at time of review. He had no complaints at night. He did not have any shortness of breath, palpitation, dizziness or lightheadedness and is off of oxygen. However he would like to stay for another day as he had a fit of sneezing this morning which makes him worried about going home labs and vitals reviewed. Vitals/I&O's: Vital Signs Temp Pulse Resp BP Pulse Ox 98.6 F 80 20 H 132/75 H 94 04/20/18 09:30 04/20/18 09:30 04/20/18 09:30 04/20/18 09:30 04/20/18 09:30 Oxygen Delivery Method Room Air Weight: 229 lb 1 oz Body Mass Index (BMI) 39.3 Intake and Output for Last 24 Hours 04/18/18 04/19/18 04/20/18 23:59 23:59 23:59 Intake Total 600 / 600 Balance 600 / 600 General: Alert, Oriented x3, Cooperative, No apparent distress HEENT: Atraumatic, PERRLA, EOMI, Normocephalic Oral: Moist Mucosa Neck: Supple, No JVD, Negative Carotid Bruits Lungs: Clear to auscultation, Normal air movement, No rhonchi, No wheeze, No rales Cardiovascular: Regular rate, Regular Rhythm, Normal S1, Normal S2, No murmurs Abdomen: Bowel Sounds Present, Soft, Non Tender, Non-Distended, No Hepato-splenomegaly Extremities: No clubbing, No cyanosis, No edema, Capillary Refill Less than 3 Seconds Skin: No rashes, No breakdown Musculoskeletal: No Tenderness to Palpation of Joints or Extremities Lymphatic: No Cervical, Supraclavicular, or Inguinal Adenopathy Neurological: Cranial nerves II-XII grossly intact, - - chronic left hemiplegia Psych/Mental Status: Normal Affect, Appropriate, Alert and oriented to time, place, person, mood and affect Microbiology Past 72 Hours 04/18/18 17:15 Mucosa - Throat Group A Streptococcus Rapid Screen - Final 04/18/18 22:24 Mucosa - Nose Respiratory Panel (PCR) - Final 04/18/18 22:20 Urine, Random Legionella Antigen - Final 04/18/18 22:20 Urine, Random Streptococcus pneumoniae Antigen (M - Final 04/18/18 17:40 Mucosa - Nose Influenza Types A,B Direct FA (MARY KATE) - Final Laboratory Results 04/20/18 05:43: WBC 27.0 H, RBC 5.44, Hgb 15.7, Hct 48.6, MCV 89.3, MCH 28.9, MCHC 32.3, RDW 14.3, RDW Differential 46.4 H, Plt Count 308, MPV 10.1, Immature Gran % (Auto) 0.300, Neut % (Auto) 93.9 H, Lymph % (Auto) 3.5 L, [place] % (Auto) 2.3, Eos % (Auto) 0.0, Baso % (Auto) 0.0, Absolute Neuts (auto) 25.4 H, Absolute Lymphs (auto) 0.94, Total Counted Not Reportable 04/20/18 05:43: Sodium 141, Potassium 4.0, Chloride 101, Carbon Dioxide 28.0, Anion Gap 12, BUN 17, Creatinine 0.76, Estim Creat Clear Calc 59.20, Est GFR (MDRD) Af Amer 132, Est GFR (MDRD) Non-Af 109, BUN/Creatinine Ratio 22.5 H, Glucose 144 H, Calcium 9.2 Current Medications Acetaminophen (Tylenol) 650 mg PO Q6H PRN PRN PRN Reason: Mild Pain (scale 0-3)/T>100.7 Al Hydroxide/Mg Hydroxide (Mylanta Ii) 30 ml PO Q6H PRN PRN PRN Reason: Gastric Burning Albuterol Sulfate (Ventolin Aerosols) 2.5 mg INHALATION Q2H PRN PRN PRN Reason: SHORTNESS OF BREATH Albuterol/Ipratropium (Duoneb) 3 ml INHALATION Q4HWA.RT [facility] Last Admin: 04/20/18 06:50 Dose: 3 ml Atorvastatin Calcium (Lipitor) 10 mg PO QHS [facility] Last Admin: 04/19/18 21:26 Dose: 10 mg Betamethasone Valerate (Valisone 0.1% Cream) 1 applic TOPICAL DAILY [facility]; Protocol Last Admin: 04/20/18 09:40 Dose: Not Given Bisacodyl (Dulcolax) 10 mg RECTAL DAILY PRN PRN PRN Reason: Constipation Calamine/Phenol (Calmoseptine Ointment) 1 applic TOPICAL BID [facility]; Protocol Last Admin: 04/20/18 09:38 Dose: Not Given Docusate Sodium (Colace) 200 mg PO BID PRN PRN PRN Reason: Constipation Enoxaparin Sodium (Lovenox) 40 mg SC DAILY [facility] Last Admin: 04/20/18 09:38 Dose: 40 mg Guaifenesin (Mucinex) 1,200 mg PO BID [facility] Last Admin: 04/20/18 09:39 Dose: 1,200 mg Levothyroxine Sodium (Synthroid) 25 mcg PO SuSa@0600 [facility] Last Admin: 04/20/18 05:53 Dose: 25 mcg Levothyroxine Sodium (Synthroid) 50 mcg PO MoTuWeThFr@0600 [facility] Methylprednisolone (Solu-Medrol) 40 mg IV Q8 [facility] Last Admin: 04/20/18 05:50 Dose: 40 mg Morphine Sulfate () 1 - 2 mg IV Q4H PRN PRN PRN Reason: SEVERE PAIN (6-10/10) Naproxen (Naprosyn) 500 mg PO BID PRN PRN PRN Reason: arthritis pain Ondansetron HCl (Zofran) 4 mg IV Q8H PRN PRN PRN Reason: Nausea Oxybutynin Chloride (Ditropan) 5 mg PO DAILY [facility] Last Admin: 04/20/18 09:38 Dose: 5 mg Oxycodone HCl (Oxyir) 5 mg PO Q4H PRN PRN PRN Reason: Moderate Pain (pain scale 4-5) Polyethylene Glycol (Miralax) 17 gm PO DAILY [facility] Last Admin: 04/20/18 09:39 Dose: Not Given Sodium Chloride () 5 - 30 ml IV UD PRN PRN Reason: SALINE FLUSH Last Admin: 04/20/18 05:51 Dose: 20 ml Medical Necessity - Tobacco Use Smoking Status: Never smoker Assessment/Plan All Active Problems Possible COPD/obesity hypoventilation sy (Acute) Traumatic open wound of left lower leg with infection (Acute) Skin tear of left lower leg without complication (Acute) Nonhealing ulcer of right lower leg (Acute) Traumatic open wound of right lower leg with delayed healing (Acute) Traumatic open wound of right lower leg with infection (Acute) 1. Acute hypoxic respiratory failure, due to possible COPD exacerbatin vs obesity hypoventilation syndrome resolved. Now off of oxygen and saturating well on room air. will need a PFT and sleep study on discharge pneumonia and influenza ruled out continue breathing treatments and steroids. 2. Bilateral lower extremity chronic venous insufficiency: Also has stasis dermatitis. Follows up with Dr. Navarro and has had venous stasis surgery in the past. ZACH hose stockings. Duplex ordered to rule out DVT and is still pending. Likely to get it tomorrow 3. Hypothyroidism: On Synthroid. 4. 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 Leucocytosis: white cell count is 27 today. Likely steroid induced. WIll switch to PO steroids 40mg daily x 5 days. DVT prophylaxis: Lovenox Disposition: MD home tomorrow. Code Visit Inpatient E&M: 47171 Subs Hosp L2
--- NOTE | 2018-04-20 10:02 | PN_ITS ---
Patient Problems: Active and Suspected Problems Possible COPD/obesity hypoventilation sy (Acute) Subjective: Patient seen and examined. His was by his bedside at time of review. He had no complaints at night. He did not have any shortness of breath, palpitation, dizziness or lightheadedness and is off of oxygen. However he would like to stay for another day as he had a fit of sneezing this morning which makes him worried about going home labs and vitals reviewed. Vitals/I&O's: Vital Signs Temp Pulse Resp BP Pulse Ox 98.6 F 80 20 H 132/75 H 94 04/20/18 09:30 04/20/18 09:30 04/20/18 09:30 04/20/18 09:30 04/20/18 09:30 Oxygen Delivery Method Room Air Weight: 229 lb 1 oz Body Mass Index (BMI) 39.3 Intake and Output for Last 24 Hours 04/18/18 04/19/18 04/20/18 23:59 23:59 23:59 Intake Total 600 / 600 Balance 600 / 600 General: Alert, Oriented x3, Cooperative, No apparent distress HEENT: Atraumatic, PERRLA, EOMI, Normocephalic Oral: Moist Mucosa Neck: Supple, No JVD, Negative Carotid Bruits Lungs: Clear to auscultation, Normal air movement, No rhonchi, No wheeze, No rales Cardiovascular: Regular rate, Regular Rhythm, Normal S1, Normal S2, No murmurs Abdomen: Bowel Sounds Present, Soft, Non Tender, Non-Distended, No Hepato- splenomegaly Extremities: No clubbing, No cyanosis, No edema, Capillary Refill Less than 3 Seconds Skin: No rashes, No breakdown Musculoskeletal: No Tenderness to Palpation of Joints or Extremities Lymphatic: No Cervical, Supraclavicular, or Inguinal Adenopathy Neurological: Cranial nerves II-XII grossly intact, - - chronic left hemiplegia Psych/Mental Status: Normal Affect, Appropriate, Alert and oriented to time, place, person, mood and affect Microbiology Past 72 Hours 04/18/18 17:15 Mucosa - Throat Group A Streptococcus Rapid Screen - Final 04/18/18 22:24 Mucosa - Nose Respiratory Panel (PCR) - Final 04/18/18 22:20 Urine, Random Legionella Antigen - Final 04/18/18 22:20 Urine, Random Streptococcus pneumoniae Antigen (M - Final 04/18/18 17:40 Mucosa - Nose Influenza Types A,B Direct FA (MARY KATE) - Final Laboratory Results 04/20/18 05:43: WBC 27.0 H, RBC 5.44, Hgb 15.7, Hct 48.6, MCV 89.3, MCH 28.9, MCHC 32.3, RDW 14.3, RDW Differential 46.4 H, Plt Count 308, MPV 10.1, Immature Gran % (Auto) 0.300, Neut % (Auto) 93.9 H, Lymph % (Auto) 3.5 L, [place] % (Auto) 2.3, Eos % (Auto) 0.0, Baso % (Auto) 0.0, Absolute Neuts (auto) 25.4 H, Absolute Lymphs (auto) 0.94, Total Counted Not Reportable 04/20/18 05:43: Sodium 141, Potassium 4.0, Chloride 101, Carbon Dioxide 28.0, Anion Gap 12, BUN 17, Creatinine 0.76, Estim Creat Clear Calc 59.20, Est GFR (MDRD) Af Amer 132, Est GFR (MDRD) Non-Af 109, BUN/Creatinine Ratio 22.5 H, Glucose 144 H, Calcium 9.2 Current Medications Acetaminophen (Tylenol) 650 mg PO Q6H PRN PRN PRN Reason: Mild Pain (scale 0-3)/T>100.7 Al Hydroxide/Mg Hydroxide (Mylanta Ii) 30 ml PO Q6H PRN PRN PRN Reason: Gastric Burning Albuterol Sulfate (Ventolin Aerosols) 2.5 mg INHALATION Q2H PRN PRN PRN Reason: SHORTNESS OF BREATH Albuterol/Ipratropium (Duoneb) 3 ml INHALATION Q4HWA.RT MIA Last Admin: 04/20/18 06:50 Dose: 3 ml Atorvastatin Calcium (Lipitor) 10 mg PO QHS MIA Last Admin: 04/19/18 21:26 Dose: 10 mg Betamethasone Valerate (Valisone 0.1% Cream) 1 applic TOPICAL DAILY [facility]; Protocol Last Admin: 04/20/18 09:40 Dose: Not Given Bisacodyl (Dulcolax) 10 mg RECTAL DAILY PRN PRN PRN Reason: Constipation Calamine/Phenol (Calmoseptine Ointment) 1 applic TOPICAL BID [facility]; Protocol Last Admin: 04/20/18 09:38 Dose: Not Given Docusate Sodium (Colace) 200 mg PO BID PRN PRN PRN Reason: Constipation Enoxaparin Sodium (Lovenox) 40 mg SC DAILY [facility] Last Admin: 04/20/18 09:38 Dose: 40 mg Guaifenesin (Mucinex) 1,200 mg PO BID [facility] Last Admin: 04/20/18 09:39 Dose: 1,200 mg Levothyroxine Sodium (Synthroid) 25 mcg PO SuSa@0600 [facility] Last Admin: 04/20/18 05:53 Dose: 25 mcg Levothyroxine Sodium (Synthroid) 50 mcg PO MoTuWeThFr@0600 [facility] Methylprednisolone (Solu-Medrol) 40 mg IV Q8 [facility] Last Admin: 04/20/18 05:50 Dose: 40 mg Morphine Sulfate () 1 - 2 mg IV Q4H PRN PRN PRN Reason: SEVERE PAIN (6-10/10) Naproxen (Naprosyn) 500 mg PO BID PRN PRN PRN Reason: arthritis pain Ondansetron HCl (Zofran) 4 mg IV Q8H PRN PRN PRN Reason: Nausea Oxybutynin Chloride (Ditropan) 5 mg PO DAILY [facility] Last Admin: 04/20/18 09:38 Dose: 5 mg Oxycodone HCl (Oxyir) 5 mg PO Q4H PRN PRN PRN Reason: Moderate Pain (pain scale 4-5) Polyethylene Glycol (Miralax) 17 gm PO DAILY [facility] Last Admin: 04/20/18 09:39 Dose: Not Given Sodium Chloride () 5 - 30 ml IV UD PRN PRN Reason: SALINE FLUSH Last Admin: 04/20/18 05:51 Dose: 20 ml Medical Necessity - Tobacco Use Smoking Status: Never smoker Assessment/Plan All Active Problems Possible COPD/obesity hypoventilation sy (Acute) Traumatic open wound of left lower leg with infection (Acute) Skin tear of left lower leg without complication (Acute) Nonhealing ulcer of right lower leg (Acute) Traumatic open wound of right lower leg with delayed healing (Acute) Traumatic open wound of right lower leg with infection (Acute) 1. Acute hypoxic respiratory failure, due to possible COPD exacerbatin vs obesity hypoventilation syndrome * resolved. Now off of oxygen and saturating well on room air. * will need a PFT and sleep study on discharge * pneumonia and influenza ruled out * continue breathing treatments and steroids. * * 2. Bilateral lower extremity chronic venous insufficiency: * Also has stasis dermatitis. * Follows up with Dr. Navarro and has had venous stasis surgery in the past. * ZACH hose stockings. * Duplex ordered to rule out DVT and is still pending. Likely to get it tomorrow 3. Hypothyroidism: On Synthroid. 4. 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 Leucocytosis: white cell count is 27 today. Likely steroid induced. WIll switch to PO steroids 40mg daily x 5 days. DVT prophylaxis: Lovenox Disposition: DC home tomorrow. Code Visit Inpatient E&M: 64810 Subs Hosp L2
[2018-04-20] MEDS: predniSONE 20 MG Tablet 40 MG PO (13:21)
[2018-04-20] MEDS: Atorvastatin Calcium 10 MG Tablet PO (20:50)
[2018-04-21 01:46] VITALS: BP 135/81; PULSE 78; RESP 18; TEMP 36.5; O2SAT 95
[2018-04-21] MEDS: Levothyroxine 50 MCG Tablet PO (05:24)
[2018-04-21 05:50] LABS: Anion Gap 7 (5-15); BUN 18 mg/dL (7-18); BUN/Creat Ratio 24.4 RATIO (10-20); Calcium,Total 8.9 mg/dL (8.5-10.1); Chloride 105 mmol/L (98-107); Creatinine, Serum 0.74 mg/dL (0.70-1.30); EST Glomerular Filtration Rate 112 mL/min (>60); Est Glom Filt Rate - Afr Amer 135 mL/min (>60); Glucose 148 mg/dL (74-106); Potassium 4.2 mmol/L (3.5-5.1); Sodium Level 141 mmol/L (136-145)
[2018-04-21 06:34] LABS: Absolute Lymphocyte Count 1.47 X10^3/ul (0.83-4.51); Absolute Neutrophil Count 20.3 X10^3/uL (2.0-7.7); Basophil# 0.01 X10^3/uL; Hemoglobin 14.7 g/dl (13.0-16.5); Lymphocyte # 1.47 X10^3/ul (4.0); Lymphocyte % 6.3 % (19-41); Mean Corp Hgb Conc 32.7 g/gl (32-36); Mean Corpuscular Hgb 28.7 pg (27.0-32.0); Mean Corpuscular Volume 87.7 fL (80-94); Mean Platelet Vol. 9.5 fl (6.2-12.0); Monocyte# 1.35 X10^3/uL; Monocyte% 5.8 % (0-10); Neutrophil # 20.33 X10^3/uL (2.7-7.7); Neutrophil % 87.5 % (47-70); Platelet Count 356 K/mm3 (150-450); RBC Distribution Width CV 14.6 % (11.6-14.6); RBC Distribution Width SD 46.4 fl (35.1-43.9); Red Blood Count 5.13 M/mm3 (4.6-6.2); White Blood Count 23.3 K/mm3 (4.4-11.0)
[2018-04-21 06:37] LABS: Differential Indicated SCAN CRITERIA MET; POSITIVE COUNT NO; POSITIVE DIFFERENTIAL YES; POSITIVE MORPHOLOGY NO
[2018-04-21 06:39] LABS: Differential Comment SCANNED
[2018-04-21] MEDS: Ipratropium/Albuterol Sulfate 3 ML AMPUL.NEB INHALATION (07:21)
[2018-04-21 07:22] VITALS: PULSE 72; RESP 16; O2SAT 93
[2018-04-21 08:05] VITALS: BP 130/85; PULSE 77; RESP 18; TEMP 36.8; O2SAT 98
[2018-04-21] MEDS: predniSONE 20 MG Tablet 40 MG PO (08:09)
[2018-04-21] MEDS: Oxybutynin 5 MG Tablet PO (08:09)
[2018-04-21] MEDS: guaiFENesin 1,200 MG Tablet 1200 MG PO (08:10)
--- NOTE | 2018-04-21 09:04 | VDLE_ITS ---
Reason For Study: SWELLING RIGHT LEFT CFV is compressible, spontaneous, phasic, GSV is normal. competent and demonstrates normal CFV is compressible, spontaneous, phasic, augmentation. competent, and demonstrates normal FV is compressible, spontaneous, phasic, augmentation. competent and demonstrates normal FV is compressible, spontaneous, phasic, augmentation. competent and demonstrates normal POP V is compressible, spontaneous, phasic, augmentation. competent and demonstrates normal POP V is compressible, spontaneous, phasic, augmentation. competent and demonstrates normal T/P Trunk is compressible. augmentation. PTV is compressible. T/P Trunk is compressible. RT PerV is compressible. PTV is compressible. Rt GSV has been ablated above the knee. Rt LT PerV is compressible. GSV is compressible below the knee. Procedure Exam performed portable in patient room. A preliminary report was called and/or faxed to [facility]. <> Interpretation Summary Deep veins of the lower extremities are bilaterally patent and compressible segmentally. There is no evidence of deep vein thrombosis on either side. Valvular competence appears intact within the proximal deep venous systems bilaterally. The right greater saphenous vein appears to have been ablated above the knee, and is patent and compressible below the knee. The left greater saphenous vein appears patent and compressible segmentally. Ordering Physician: Betty Bazzi Referring Physician: WILMER MUNROE Performed By: Blanca Rivera, RDCS, RVT
--- NOTE | 2018-04-21 09:07 | NURSING ---
Was asked to see patient for small scab to left lateral lower leg. scab was removed. no wound noted. patient has hemosiderin staining to bilateral lower legs. mild edema noted. no open areas noted. pt has been wearing ZACH hose. states patient has been discharged home. no wound care needed for home at this time.
--- NOTE | 2018-04-21 09:45 | DCINST_ITS ---
- Discharge Diagnoses Current Active Problems: Current Active and Chronic Problems Acute and chronic respiratory failure with hypoxia (Chronic) Possible COPD/obesity hypoventilation sy (Acute) You will use the following diet at home:: Cardiac Your food should be the consistency of: Regular Your liquids should be the consistency of: Regular/Thin Discharge Activity: Return to Normal Activity Weight Bearing Status: Weight bearing as tolerated Call your doctor if you observe: Shortness of breath, Swelling in the ankles, Chest pain, Increased palpitations (irregular heartbeat) Allergies/Adverse Reactions: Allergies No Known Allergies Allergy (Verified 04/18/18 16:55) Medications to take at Discharge Albuterol IH (ProAir) [Proair Hfa] 2 puff INHALATION Q4H PRN PRN 04/18/18 Atorvastatin Calcium 10 mg PO QHS 04/18/18 Betamethasone Valerate [Valisone 0.1% Cream] 1 applicatio TOPICAL DAILY 04/18/18 Levothyroxine [Synthroid] 25 mcg PO SUSA 04/18/18 Levothyroxine [Synthroid] 50 mcg PO MOTUWETHFR 04/18/18 Naproxen 500 mg PO BID 04/18/18 Oxybutynin Chloride [Ditropan Xl] 5 mg PO DAILY 04/18/18 Prednisone 40 mg PO DAILY #8 tablet 04/21/18 The following prescriptions were given: Prednisone 40 mg PO DAILY #8 tablet Orders to be completed after discharge: Pulmonary Function Test (Comp) Location: None Selected Complete Sleep Workup Post D/C [SL] Location: None Selected Primary Care Physician: Trisha Barros MD [Primary Care Provider] - Please follow up with your Primary Care Physician in: 1-2 weeks Test Results: Test results from this visit will be discussed in further detail at your follow- up appointment, if applicable. Please Follow Up With: Jairon Yi MD When: 1-2 weeks. Please call his office for an appointment Proposed Discharge Date: 04/21/18
--- NOTE | 2018-04-21 09:47 | DS.PCM_ITS ---
Discharge Date and Diagnosis Date of Admission: 04/18/18 Date of Discharge: 04/21/18 - Primary Discharge Diagnosis Active and Suspected Problems Possible COPD/obesity hypoventilation sy (Acute) acute hypoxic respiratory failure due to possible COPD vs OHS - Secondary Discharge Diagnosis Chronic Problems Acute and chronic respiratory failure with hypoxia (Chronic) Venous insufficiency of both lower extremities (Chronic) Hypothyroidism (Chronic) Hemiplegia affecting left nondominant side (Chronic) Venous insufficiency of both lower extremities (Chronic) Hospital Course and Treatment Imaging Results: Diagnostic Data Chest X-Ray 04/18/18 17:20 IMPRESSION: Normal x-ray examination of the chest. Electronically Signed: Leroy Solano MD at 18:26 EST , Service support , Consultations 04/18/18 20:30 Consult: Onc/Wound/nutrition representative Routine Comment: Reason for Consult:: Left leg wound scab/venous insuffiencey Operations: None Procedures: 2-D Echocardiogram Summary of Care Provided: Patient is a 67-year-old male with a history of left-sided hemiplegia, hypothyroidism and venous insufficiency of both lower extremities. He was admitted through the ED on 04/18/2018 with a complaint of worsening shortness of breath and wheezing for the past 2-3 weeks prior to admission. He had assisted cough with production of clear sputum. He had upper respiratory tract symptoms and was treated in urgent care center with doxycycline, albuterol, Mucinex and prednisone. He completed 10 days of doxycycline and prednisone but symptoms still remained. He therefore decided to come into the ED where his walking pulse ox dropped to 85% by was at 95% on room air. Influenza and rapid strep test were negative. Chest x-ray showed underventilation but no acute cardiopulmonary process and EKG showed no acute ST changes. Admitted and managed for acute hypoxic respiratory failure due to possible undiagnosed COPD and OHS. He was started on breathing treatments with duo nebs, as well as incentive spirometry. BNP was 10. He had a 2D echo which showed moderate concentric left ventricular hypertrophy with estimated EF of 75% in stage I diastolic dysfunction. RVSP unable to be estimated due to inadequate jet but was probably normal. Patient remained stable and was transitioned off of oxygen and saturating very well on room air. Remained stable and was discharged home on 04/21/2018 with a prescription for p.o. prednisone. He is to follow-up with pulmonology for an outpatient sleep test and PFT. Patient seen and examined prior to discharge. He had no complaints and felt well. He had an uneventful night and denies any fever or chills, and cough or chest pain, any shortness of breath, abdominal pain, any diarrhea vomiting. Review of systems otherwise negative. Labs and vitals reviewed. Home medications reviewed and reconciled. On examination Vitals: Vital Signs Height 5 ft 4 in Weight: 229 lb 1 oz Weight in Pounds 229.1 lbs Pulse Ox [AMBULATING on Room 93 Air] Pulse Ox [At REST on Room Air] 96 Pulse Ox 98 Temperature 98.3 F Pulse Rate 77 Respiratory Rate 18 Blood Pressure 130/85 Blood Pressure Position Sitting General: Alert, Oriented x3, Cooperative, No apparent distress HEENT: Atraumatic, PERRLA, EOMI, Normocephalic Oral: Moist Mucosa Neck: Supple, No JVD, Negative Carotid Bruits Lungs: Clear to auscultation, Normal air movement, No rhonchi, No wheeze, No rales Cardiovascular: Regular rate, Regular Rhythm, Normal S1, Normal S2, No murmurs Abdomen: Bowel Sounds Present, Soft, Non Tender, Non-Distended, No Hepato- splenomegaly Extremities: No clubbing, No cyanosis, No edema, Capillary Refill Less than 3 Seconds Skin: No rashes, No breakdown Musculoskeletal: No Tenderness to Palpation of Joints or Extremities Lymphatic: No Cervical, Supraclavicular, or Inguinal Adenopathy Neurological: Cranial nerves II-XII grossly intact, - - chronic left hemiplegia Psych/Mental Status: Normal Affect, Appropriate, Alert and oriented to time, place, person, mood and affect - Physical Exam Vital Signs Temp Pulse Resp BP Pulse Ox 98.3 F 77 18 130/85 H 98 04/21/18 08:05 04/21/18 08:05 04/21/18 08:05 04/21/18 08:05 04/21/18 08:05 Oxygen Delivery Method Room Air Weight: 229 lb 1 oz Body Mass Index (BMI) 39.3 Intake and Output for Last 24 Hours 04/19/18 04/20/18 04/21/18 23:59 23:59 23:59 Intake Total 600 / 600 Balance 600 / 600 Microbiology Past 72 Hours 04/18/18 17:15 Group A Streptococcus Rapid Screen - Final Mucosa - Throat 04/18/18 22:24 Respiratory Panel (PCR) - Final Mucosa - Nose 04/18/18 22:20 Legionella Antigen - Final Urine, Random 04/18/18 22:20 Streptococcus pneumoniae Antigen (M - Final Urine, Random 04/18/18 17:40 Influenza Types A,B Direct FA (MARY KATE) - Final Mucosa - Nose Laboratory Tests Past 24 Hrs 04/21/18 04/21/18 05:12 05:12 WBC 23.3 H RBC 5.13 Hgb 14.7 Hct 45.0 MCV 87.7 MCH 28.7 MCHC 32.7 RDW 14.6 RDW Differential 46.4 H Plt Count 356 MPV 9.5 Immature Gran % (Auto) 0.400 Neut % (Auto) 87.5 H Lymph % (Auto) 6.3 L [place] % (Auto) 5.8 Eos % (Auto) 0.0 Baso % (Auto) 0.0 Absolute Neuts (auto) 20.3 H Absolute Lymphs (auto) 1.47 Total Counted Not Reportable Differential Comment SCANNED Sodium 141 Potassium 4.2 Chloride 105 Carbon Dioxide 29.0 Anion Gap 7 BUN 18 Creatinine 0.74 Estim Creat Clear Calc 59.20 Est GFR (MDRD) Af Amer 135 Est GFR (MDRD) Non-Af 112 BUN/Creatinine Ratio 24.4 H Glucose 148 H Calcium 8.9 Discharge Diet: Low fat/ Low Cholesterol Discharge Activity: Return to Normal Activity Weight Bearing Status: Weight bearing as tolerated Call your doctor if you observe: Shortness of breath, Swelling in the ankles, Chest pain, Increased palpitations (irregular heartbeat) Home Medications: Medications to take at Discharge Albuterol IH (ProAir) [Proair Hfa] 2 puff INHALATION Q4H PRN PRN 04/18/18 Atorvastatin Calcium 10 mg PO QHS 04/18/18 Betamethasone Valerate [Valisone 0.1% Cream] 1 applicatio TOPICAL DAILY 04/18/18 Levothyroxine [Synthroid] 25 mcg PO SUSA 04/18/18 Levothyroxine [Synthroid] 50 mcg PO MOTUWETHFR 04/18/18 Naproxen 500 mg PO BID 11/09/18 Oxybutynin Chloride [Ditropan Xl] 5 mg PO DAILY 04/18/18 Prednisone 40 mg PO DAILY #8 tablet 04/21/18 Following Prescrptions Were Given to Patient: Prednisone 40 mg PO DAILY #8 tablet Other Amb Orders: Pulmonary Function Test (Comp) Location: None Selected Complete Sleep Workup Post D/C [SL] Location: None Selected Primary Care Physician: Trisha Barros MD [Primary Care Provider] - Please follow up with your Primary Care Physician in: 1-2 weeks Please Follow Up With: Jairon Yi MD When: 1-2 weeks. Please call his office for an appointment Disposition: Home Minutes spent on discharge:: 40 Patient Condition:: Stable Medical Necessity - Tobacco Use Smoking Status: Never smoker Meaningful Use Info Meaningful Use Diagnoses (Choose all that apply): None applicable Code Visit Inpatient E&M: 04911 Disch Hosp
[2018-04-21 10:04] VITALS: O2SAT 93; O2SAT 96
== END 2018-04-21 10:13 | disposition home or self-care (01) | DRG 189 ==
LOC: ED 17:31 → MS3 19:57
PROVIDERS: Admitting Provider Internal Medicine; Emergency Provider Emergency Medicine; Family Provider Internal Medicine; PCP Internal Medicine; Visit Provider Student in an Organized Health Care Education/Training Program
DX: J96.01 Acute respiratory failure with hypoxia (principal); E66.2 Morbid (severe) obesity with alveolar hypoventilation; G81.94 Hemiplegia, unspecified affecting left nondominant side; I87.2 Venous insufficiency (chronic) (peripheral); Z23 Encounter for immunization; E03.9 Hypothyroidism, unspecified; J44.9 Chronic obstructive pulmonary disease, unspecified; Z68.39 Body mass index [BMI] 39.0-39.9, adult
CPT/HCPCS: 36415; 71045; 80048; 80053; 83036; 83880; 84439; 84443; 84484; 85025; 85379; 87449; 87633; 87804; 87880; 93005; 93306; 93970; 94640; 94667; 94668; 99283; Q9957; 90686; A4216; C8929

== ENCOUNTER 2020-04-06 17:12 | Inpatient (IN) | payer MEDICARE, SELFPAY ==
[2020-04-06 17:13] VITALS: BP 126/74; PULSE 97; RESP 24; TEMP 36.9; O2SAT 91; BMI 38.6
[2020-04-06 17:38] VITALS: O2SAT 93
[2020-04-06 18:43] LABS: Absolute Lymphocyte Count 1.02 X10^3/uL (0.83-4.51); Absolute Neutrophil Count 5.9 X10^3/uL (2.0-7.7); Basophil# 0.02 X10^3/uL; Basophil% 0.3 % (0-1); Hematocrit 44.7 % (40-54); Hemoglobin 14.2 g/dL (13.0-16.5); Lymphocyte # 1.02 X10^3/ul (4.0); Lymphocyte % 13.6 % (19-41); Mean Corp Hgb Conc 31.8 g/dL (32-36); Mean Corpuscular Hgb 27.7 pg (27.0-32.0); Mean Corpuscular Volume 87.3 fL (80-94); Mean Platelet Vol. 10.6 fl (6.2-12.0); Monocyte# 0.55 X10^3/uL; Monocyte% 7.3 % (0-10); NRBC Flagged by Analyzer 0 % (0-5); Neutrophil % 78.4 % (47-70); Platelet Count 176 K/mm3 (150-450); RBC Distribution Width SD 45.2 fl (35.1-43.9); Red Blood Count 5.12 M/mm3 (4.6-6.2); White Blood Count 7.5 K/mm3 (4.4-11.0)
--- NOTE | 2020-04-06 18:50 | RAD_ITS ---
STUDY: X-RAY CHEST REASON FOR EXAM: Male, 69 years old. SOB, INCREASED WEAKNESS AND FREQUENT URINATION. TECHNIQUE: Single frontal view of the chest. COMPARISON: 04/18/2018 FINDINGS: There are stable prominent interstitial markings. There is no new focal consolidation. Normal size heart. Normal mediastinum and valerio. Normal visualized pulmonary arteries. Normal visualized aortic arch and descending thoracic aorta. Normal visualized thoracic spine. Normal visualized ribs, clavicles, and shoulders. There is no demonstrated abnormality of the visualized soft tissue structures of the upper abdomen. RAD/Chest 1 View (Portable) IMPRESSION: No acute cardiopulmonary process. Electronically Signed: Georgette Drew MD at 19:07 EDT Tel , Service support ,
--- NOTE | 2020-04-06 18:56 | ED.DCSUM_ITS ---
- ER Visit Summary Date of Service: 04/06/20 Chief Complaint: Shortness of breath History of Present Illness: The patient is a 69 M who presents with shortness of breath that is been getting worse over the past 2 days. Patient states he is having trouble getting enough oxygen. Patient states it is worse with exertion. Patient states he has fallen the last couple mornings because of breathing problems and weakness. Patient denies any chest pain. Patient denies any palpitations. Patient denies any fevers or chills. Patient admits to a dry cough but denies any sputum production. Patient denies any nausea or vomiting. Patient denies any diaphoresis. Patient states he has a nephew who recently tested positive for COVID-19. Physical Examination: Vital signs are stable. Patient is afebrile. Patient is in no acute distress. Oral mucosa is pink and moist. Neck is supple. Trachea is midline. There is no JVD. Heart was regular rate and rhythm. Lungs showed wheezing and rales in the bases bilaterally. Abdomen is soft. Bowel sounds are normal. There is no tenderness. Cranial nerves II through XII are intact. There are no focal motor or sensory deficits noted. Extremities are intact. There is no calf tenderness or edema. Test Results: CBC and comprehensive metabolic profile were obtained and were within normal limits. Portable chest x-ray was obtained. There is no acute cardiopulmonary process. This was interpreted by the radiologist and reviewed by myself. COVID-19 test was positive. Emergency Department Course and Treatment: Patient was given albuterol inhaler here. I attempted to ambulate the patient on room air with a pulse oximeter however, he was too weak to ambulate. While sitting in the bed talking without oxygen his pulse oximeter dropped to 88%. Patient's oxygen improved to 97% with oxygen. Case was discussed with the hospitalist. He will admit the patient to the hospital. Patient understood and was agreeable with the plan. All questions were answered. Disposition: Admit to hospital Impression: 1. COVID-19 2. Hypoxia This note was generated with [employer] software. It may contain incorrect words, spelling, and punctuation that were not noted in review of the chart prior to signing ED Disposition - Plan for ED Patient: Disposition: Acute Care Hospital [facility] Diagnosis: COVID-19, Hypoxia Referrals: Trisha Barros MD [Primary Care Provider] -
[2020-04-06 19:14] LABS: ALB/GLOB Ratio 0.8 RATIO (0.9-2.4); AST(SGOT) 41 U/L (15-37); Alanine Aminotransfer ALT/SGPT 26 U/L (16-61); Albumin, Serum 3.1 g/dL (3.2-5.0); Alkaline Phosphatase 90 U/L (45-117); Anion Gap 4 (5-15); BUN 8 mg/dL (7-18); BUN/Creat Ratio 9.7 RATIO (10-20); Calcium,Total 8.7 mg/dL (8.5-10.1); Chloride 105 mmol/L (98-107); Creatinine, Serum 0.83 mg/dL (0.70-1.30); EST Glomerular Filtration Rate 98 mL/min (>60); Est Glom Filt Rate - Afr Amer 118 mL/min (>60); Estimated Creatinine Clearance 69.34 ml/min; Glucose 176 mg/dL (74-106); Potassium 3.6 mmol/L (3.5-5.1); Protein, Total 7.1 g/dL (6.4-8.2); Sodium Level 140 mmol/L (136-145)
[2020-04-06 19:15] VITALS: BP 119/68; PULSE 80; RESP 20; O2SAT 97
[2020-04-06 19:24] VITALS: PULSE 86; RESP 20
[2020-04-06 19:52] LABS: Lactic Acid 1.2 mmol/L (0.4-1.9)
[2020-04-06 21:30] VITALS: BP 114/68; PULSE 77; RESP 30; TEMP 36.3; O2SAT 88; O2SAT 98
[2020-04-06 22:03] VITALS: BP 113/68; PULSE 79; RESP 24; TEMP 37.3; O2SAT 95
[2020-04-06] MEDS: dexAMETHasone 4 MG/ML Vial 6 MG IV (22:11)
--- NOTE | 2020-04-06 22:12 | HP.PCM_ITS ---
Problem List (1) COVID-19 virus infection Status: Acute (2) COPD exacerbation Status: Acute (3) Acute and chronic respiratory failure with hypoxia Status: Chronic (4) Venous insufficiency of both lower extremities Status: Chronic (5) Hypothyroidism Status: Chronic (6) 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 (7) Venous insufficiency of both lower extremities Status: Chronic (8) Traumatic open wound of right lower leg with delayed healing Status: Inactive (9) COVID-19 Status: Acute (10) Hypoxia Status: Acute History of Present Illness Date of Admission: 04/06/20 Chief Complaint: sob The patient is a 69 year old M with a significant history of COPD; diabetes mellitus; hypothyroidism; and hyperlipidemia who presents to the emergency department with 2-day history of progressively worsening shortness of breath. Associated with his symptoms is productive cough and weakness. He fell 2 days in a row because of weakness. He thinks that he had a fever. However he mentioned a temperature of about 98 Fahrenheit and stated that at baseline his temperature is about 97 F. He reports chills. History is difficult to obtain because patient has conversational dyspnea. Reportedly ambulation was attempted at the emergency department. However patient was too weak to ambulate. And on room air his oxygen saturation was 88%. Past Medical History Past Medical History (Chronic Problems): Chronic Problems Acute and chronic respiratory failure with hypoxia (Chronic) Venous insufficiency of both lower extremities (Chronic) Hypothyroidism (Chronic) Hemiplegia affecting left nondominant side (Chronic) Venous insufficiency of both lower extremities (Chronic) Allergies No Known Allergies Allergy (Verified 04/06/20 17:12) Home Medications: Ambulatory Orders Medication Instructions Recorded Albuterol IH (ProAir) [Proair Hfa] 2 puff INHALATION Q4H PRN PRN 04/18/18 Levothyroxine [Synthroid] 25 mcg PO SUSA 04/18/18 Levothyroxine [Synthroid] 50 mcg PO MOTUWETHFR 04/18/18 Oxybutynin Chloride [Ditropan Xl] 5 mg PO DAILY 04/18/18 Metformin HCl [Glucophage Xr] 500 mg PO BID 04/06/20 Rosuvastatin Calcium [Crestor] 5 mg PO MOTH 04/06/20 Surgical History: no surgical history Smoking Status: Never smoker Tobacco Use: Non-smoker - *Family History Paternal History Items: Cancer, - Maternal History Items: - - Denies knowledge of maternal medical history. Review of Systems Constitutional: Reports: Chills. Denies: Fever, Weight Change HEENT: Denies: Head Aches, Sinus Congestion, Sinus Drainage Cardiovascular: Denies: Chest Pain, Palpitations Respiratory: Reports: Cough, Shortness of Breath, Sputum production Gastrointestinal: Denies: Abdominal Pain, Nausea, Vomiting Genitourinary: Denies: Dysuria Musculoskeletal: Denies: Joint Pain, Joint Tenderness Skin: Denies: Rash, Wounds Neurological: Denies: Numbness, Tingling, Focal weakness Psychiatric: Denies: Anxiety, Depression, Homicidal Ideations, Suicidal Ideations Hematologic/ Lymphatic: Denies: Easy Bruising, Easy Bleeding VTE Information - Inpt Only VTE Present on Admission: No VTE Mechan Device Prophylaxis: None VTE Pharm Prophylaxis ordered?: Yes Patient Problems: Active and Suspected Problems COVID-19 (Acute) Hypoxia (Acute) COVID-19 virus infection (Acute) COPD exacerbation (Acute) - Physical Exam Vitals/I&O's: Vital Signs Temp Pulse Resp BP Pulse Ox 99.1 F 79 24 H 113/68 95 04/06/20 22:03 04/06/20 22:03 04/06/20 22:03 04/06/20 22:03 04/06/20 22:03 Oxygen Flow Rate (L/min) 2 Oxygen Delivery Method Nasal Cannula Weight: 102.058 kg Body Mass Index (BMI) 38.6 General: Alert, Oriented x3, Cooperative HEENT: Atraumatic, PERRLA, EOMI, Normocephalic Neck: Supple, No JVD, Negative Carotid Bruits Lungs: Rhonchi, Using Accessory Muscles, Wheezes Cardiovascular: Regular rate, Normal S1, Normal S2, No murmurs Abdomen: Bowel Sounds Present, Soft, Non Tender Extremities: No edema, Capillary Refill Less than 3 Seconds Skin: No rashes, No breakdown Musculoskeletal: No Tenderness to Palpation of Joints or Extremities Neurological: Cranial nerves II-XII grossly intact Psych/Mental Status: Normal Affect, Appropriate Microbiology Past 72 Hours 04/06/20 18:40 Mucosa - Nose Respiratory Panel (PCR) - Final Laboratory Results 04/06/20 17:57: WBC 7.5, RBC 5.12, Hgb 14.2, Hct 44.7, MCV 87.3, MCH 27.7, MCHC 31.8 L, RDW Std Deviation 45.2 H, RDW Coeff of Kay 14.0, Plt Count 176, MPV 10.6, Immature Gran % (Auto) 0.400, Neut % (Auto) 78.4 H, Lymph % (Auto) 13.6 L, [place] % (Auto) 7.3, Eos % (Auto) 0.0, Baso % (Auto) 0.3, Absolute Neuts (auto) 5.9, Absolute Lymphs (auto) 1.02, Nucleated RBC % 0 04/06/20 17:57: Sodium Cancelled, Potassium Cancelled, Chloride Cancelled, Car bon Dioxide Cancelled, Anion Gap Cancelled, BUN Cancelled, Creatinine Cancelled, Estim Creat Clear Calc Cancelled, Est GFR (MDRD) Af Amer Cancelled, Est GFR (MDRD) Non-Af Cancelled, BUN/Creatinine Ratio Cancelled, Glucose Cancelled, Calcium Cancelled, Total Bilirubin Cancelled, AST Cancelled, ALT Cancelled, Alkaline Phosphatase Cancelled, Total Protein Cancelled, Albumin Cancelled, Globulin Cancelled, Albumin/Globulin Ratio Cancelled 04/06/20 17:57: Lactic Acid Cancelled 04/06/20 18:40: COVID-19 (ARTEM) Detected 04/06/20 18:50: Sodium 140, Potassium 3.6, Chloride 105, Carbon Dioxide 31.0, Anion Gap 4 L, BUN 8, Creatinine 0.83, Estim Creat Clear Calc 69.34, Est GFR (MDRD) Af Amer 118, Est GFR (MDRD) Non-Af 98, BUN/Creatinine Ratio 9.7 L, Glucose 176 H, Calcium 8.7, Total Bilirubin 0.20, AST 41 H, ALT 26, Alkaline Marlene sphatase 90, Total Protein 7.1, Albumin 3.1 L, Globulin 4.0, Albumin/Globulin Ratio 0.8 L 04/06/20 18:50: Lactic Acid 1.2 Assessment/Plan All Active Problems COVID-19 (Acute) Hypoxia (Acute) COVID-19 virus infection (Acute) COPD exacerbation (Acute) Acute respiratory insufficiency secondary to Covid 19 bronchitis and COPD exacerbation Chest x-ray interpreted by the radiologist and actual chest x-ray image interpreted by myself: No acute cardiopulmonary process noted. Discussed emergency department doctor to give patient dose of Dexamethasone IV x1. Also Dexamethasone 6 mg p.o. daily. Placed on scheduled albuterol inhaler. Infectious disease consult and pulmonology consult. Tylenol for fever and Mucinex for cough ordered. Elevated liver biochemistry AST is mildly elevated at 41. Review of old record showed that ALT on 04/19/2018 was 12. Trend CMP. Abuse mellitus Patient with hyperglycemia on presentation. On home Metformin; held in the hospital setting. Accu-Chek with correction scale insulin. Obesity: BMI of 38.6. Complicates care. Lifestyle modification recommended. DVT prophylaxis: Subcutaneous Lovenox per Covid protocol. Inpatient E&M: 87470 Init Hosp L3
[2020-04-06 23:16] VITALS: BMI 37.3
[2020-04-06 23:29] LABS: D-Dimer Quantitative (DVT/PE) 1.85 FEU/ug/m (0.27-0.49)
[2020-04-06] MEDS: guaiFENesin 1,200 MG Tablet 1200 MG PO (23:58)
[2020-04-07] VITALS (7 sets, daily range): BP systolic 101–115; BP diastolic 55–72; PULSE 64–74; RESP 18–24; TEMP 36.6–38; O2SAT 94–96
[2020-04-07] MEDS: Acetaminophen 325 MG Tablet 650 MG PO (00:09)
--- NOTE | 2020-04-07 04:10 | CT_ITS ---
HISTORY: SOB,ELEVATED D-DIMER, + COVID HX :HYPOTHYROID,COPD, DIABETES, EXAMINATION: CTA Chest W Contrast Injection TECHNIQUE: Helically acquired images were obtained of the chest following IV contrast as per pulmonary angiogram protocol with 3D reconstructions. A radiation dose optimization technique was used for this scan. IV Contrast dosage and agent: 100mL Isovue-370 contrast COMPARISON: Portable chest 04/06/2020 FINDINGS: Large body habitus. PULMONARY ARTERIES: Normal in caliber. No pulmonary embolism. AORTA AND GREAT VESSELS: No aortic aneurysm or dissection. HEART AND PERICARDIUM: Borderline cardiomegaly. No pericardial effusion. Coronary artery Calcifications. Prominent pericardial fat MEDIASTINUM AND JULIETA: Bilateral hilar lymph nodes both calcified and noncalcified and with borderline enlarged noncalcified nodes. No axillary lymph node enlargement or suspicious mediastinal lymph node enlargement. LUNGS, PLEURA AND LARGE AIRWAYS: Bilateral small calcified granulomas. Left lower lobe infiltrate including posterior and peripheral infiltrates. Left upper lobe multifocal groundglass opacities, peripheral in location. Right upper lobe posterior segment mild groundglass opacity and posterior right basilar small atelectasis or infiltrate. No pneumothorax or pleural effusion. BONES: No definite recent fracture. Dorsal kyphosis with chronic appearing compression deformities of the T4-T6 superior endplates. No bony retropulsion. UPPER ABDOMEN: No acute pathology. CT/CTA Chest W/WO Contrast IMPRESSION: 1. No PE or thoracic aortic dissection. 2. Left lower lobe infiltrate and bilateral upper lobe groundglass opacities, multifocal on the left. The CT findings support the provided clinical diagnosis of COVID pneumonia. 3. Borderline cardiomegaly. Coronary artery calcifications. Old granulomatous disease. Individualized dose optimization techniques were used for this CT. at 0649 Reported and signed by: Melvin Edgar MD Electronically Signed: Melvin Edgar, at 6:25 EDT Tel , Service support ,
[2020-04-07 06:08] LABS: Absolute Lymphocyte Count 0.57 X10^3/uL (0.83-4.51); Absolute Neutrophil Count 5.2 X10^3/uL (2.0-7.7); Basophil# 0.01 X10^3/uL; Basophil% 0.2 % (0-1); Hematocrit 42.5 % (40-54); Hemoglobin 12.9 g/dL (13.0-16.5); Lymphocyte # 0.57 X10^3/ul (4.0); Lymphocyte % 9.6 % (19-41); Mean Corp Hgb Conc 30.4 g/dL (32-36); Mean Corpuscular Hgb 26.9 pg (27.0-32.0); Mean Corpuscular Volume 88.5 fL (80-94); Mean Platelet Vol. 9.5 fl (6.2-12.0); Monocyte# 0.17 X10^3/uL; Monocyte% 2.9 % (0-10); NRBC Flagged by Analyzer 0 % (0-5); Neutrophil # 5.16 X10^3/uL (2.7-7.7); POSITIVE DIFFERENTIAL YES; Platelet Count 142 K/mm3 (150-450); RBC Distribution Width CV 14.1 % (11.6-14.6); White Blood Count 5.9 K/mm3 (4.4-11.0)
[2020-04-07 06:19] LABS: Differential Indicated SCAN CRITERIA MET
[2020-04-07 06:45] LABS: Differential Comment SCANNED
[2020-04-07 06:48] LABS: ALB/GLOB Ratio 0.7 RATIO (0.9-2.4); AST(SGOT) 43 U/L (15-37); Alanine Aminotransfer ALT/SGPT 25 U/L (16-61); Albumin, Serum 2.7 g/dL (3.2-5.0); Alkaline Phosphatase 76 U/L (45-117); Anion Gap 7 (5-15); BUN 9 mg/dL (7-18); Calcium,Total 8.2 mg/dL (8.5-10.1); Chloride 103 mmol/L (98-107); Creatinine, Serum 0.75 mg/dL (0.70-1.30); EST Glomerular Filtration Rate 109 mL/min (>60); Est Glom Filt Rate - Afr Amer 132 mL/min (>60); Estimated Creatinine Clearance 57.56 ml/min; Globulin 3.9 g/dL (2.2-4.2); Glucose 226 mg/dL (74-106); Potassium 4.2 mmol/L (3.5-5.1); Protein, Total 6.6 g/dL (6.4-8.2); Sodium Level 139 mmol/L (136-145)
[2020-04-07] MEDS: Insulin Lispro 100 UNIT/ML INSULN.PEN SC ×4 (07:10→22:56)
[2020-04-07 07:25] LABS: Bedside Glucose 221 mg/dL (70-110)
--- NOTE | 2020-04-07 07:28 | PN_ITS ---
Patient Problems: Active and Suspected Problems COVID-19 (Acute) Hypoxia (Acute) COVID-19 virus infection (Acute) COPD exacerbation (Acute) Reason for Visit: Follow-up on hypoxia/Acute COVID-19 infection/pneumonia Subjective: Patient seen and examined. He feels improved. Denies any fever or chills. No diarrhea. Objective: Physical exam: Vitals/I&O's: Vital Signs Temp Pulse Resp BP Pulse Ox 98.8 F 68 20 H 113/59 L 96 04/07/20 02:03 04/07/20 02:03 04/07/20 02:03 04/07/20 02:03 04/07/20 02:03 Oxygen Flow Rate (L/min) 2 Oxygen Delivery Method Nasal Cannula Weight: 99.2 kg Body Mass Index (BMI) 37.3 Intake and Output for Last 24 Hours 04/05/20 04/06/20 04/07/20 23:59 23:59 23:59 Intake Total 400 / 400 Output Total 200 / 200 Balance 200 / 200 General: Alert, Oriented x3, Cooperative, No apparent distress, - - 2 L of oxygen HEENT: Atraumatic, PERRLA, EOMI, Normocephalic Oral: Moist Mucosa Neck: Supple Lungs: Diminished Cardiovascular: Regular rate, Regular Rhythm, Normal S1, Normal S2 Abdomen: Bowel Sounds Present, Soft, Non Tender, Non-Distended, No Hepato- splenomegaly Extremities: No edema Skin: No rashes Musculoskeletal: No Tenderness to Palpation of Joints or Extremities Lymphatic: No Cervical, Supraclavicular, or Inguinal Adenopathy Neurological: Cranial nerves II-XII grossly intact, Neuro grossly intact Psych/Mental Status: Normal Affect, Appropriate Microbiology Past 72 Hours 04/06/20 18:40 Mucosa - Nose Respiratory Panel (PCR) - Final Laboratory Results 04/06/20 17:57: WBC 7.5, RBC 5.12, Hgb 14.2, Hct 44.7, MCV 87.3, MCH 27.7, MCHC 31.8 L, RDW Std Deviation 45.2 H, RDW Coeff of Kay 14.0, Plt Count 176, MPV 10.6, Immature Gran % (Auto) 0.400, Neut % (Auto) 78.4 H, Lymph % (Auto) 13.6 L, [place] % (Auto) 7.3, Eos % (Auto) 0.0, Baso % (Auto) 0.3, Absolute Neuts (auto) 5.9, Absolute Lymphs (auto) 1.02, Nucleated RBC % 0 04/06/20 17:57: Sodium Cancelled, Potassium Cancelled, Chloride Cancelled, Carbon Dioxide Cancelled, Anion Gap Cancelled, BUN Cancelled, Creatinine Cancelled, Estim Creat Clear Calc Cancelled, Est GFR (MDRD) Af Amer Cancelled, Est GFR (MDRD) Non-Af Cancelled, BUN/Creatinine Ratio Cancelled, Glucose Cancelled, Calcium Cancelled, Total Bilirubin Cancelled, AST Cancelled, ALT Cancelled, Alkaline Phosphatase Cancelled, Total Protein Cancelled, Albumin Cancelled, Globulin Cancelled, Albumin/Globulin Ratio Cancelled 04/06/20 17:57: Lactic Acid Cancelled 04/06/20 18:02: D-Dimer Quant (PE/DVT) 1.85 H* 04/06/20 18:40: COVID-19 (ARTEM) Detected 04/06/20 18:50: Sodium 140, Potassium 3.6, Chloride 105, Carbon Dioxide 31.0, Anion Gap 4 L, BUN 8, Creatinine 0.83, Estim Creat Clear Calc 69.34, Est GFR (MDRD) Af Amer 118, Est GFR (MDRD) Non-Af 98, BUN/Creatinine Ratio 9.7 L, Glucose 176 H, Calcium 8.7, Total Bilirubin 0.20, AST 41 H, ALT 26, Alkaline Phosphatase 90, Total Protein 7.1, Albumin 3.1 L, Globulin 4.0, Albumin/Globulin Ratio 0.8 L 04/06/20 18:50: Lactic Acid 1.2 04/07/20 06:00: WBC 5.9, RBC 4.80, Hgb 12.9 L, Hct 42.5, MCV 88.5, MCH 26.9 L, MCHC 30.4 L, RDW Std Deviation 46.0 H, RDW Coeff of Kay 14.1, Plt Count 142 L, MPV 9.5, Immature Gran % (Auto) 0.300, Neut % (Auto) 87.0 H, Lymph % (Auto) 9.6 L, [place] % (Auto) 2.9, Eos % (Auto) 0.0, Baso % (Auto) 0.2, Absolute Neuts (auto) 5.2, Absolute Lymphs (auto) 0.57 L, Nucleated RBC % 0, Differential Comment SCANNED 04/07/20 06:00: Sodium 139, Potassium 4.2, Chloride 103, Carbon Dioxide 29.0, Anion Gap 7, BUN 9, Creatinine 0.75, Estim Creat Clear Calc 57.56, Est GFR (MDRD) Af Amer 132, Est GFR (MDRD) Non-Af 109, BUN/Creatinine Ratio 12.0, Glucose 226 H, Calcium 8.2 L, Total Bilirubin 0.30, AST 43 H, ALT 25, Alkaline Phosphatase 76, Total Protein 6.6, Albumin 2.7 L, Globulin 3.9, Albumin/Globulin Ratio 0.7 L 04/07/20 07:05: POC Glucose 221 H Current Medications Acetaminophen (Acetaminophen 325 Mg Tablet) 650 mg PO Q6H PRN PRN PRN Reason: Pain Score 1-10/Temp > 100.7 F Last Admin: 04/07/20 00:09 Dose: 650 mg Documented by: Albuterol Sulfate (Albuterol Sulfate 18 Gm Inhaler (200 Puffs)) 2 puff IH Q4HWA COUNT INCLUDES THE [facility] Atorvastatin Calcium (Atorvastatin Calcium 10 Mg Tablet) 10 mg PO MoTh@2200 COUNT INCLUDES THE [facility] Dexamethasone (Dexamethasone 4 Mg Tablet) 6 mg PO DAILY@0800 COUNT INCLUDES THE [facility] Dextrose (Dextrose 50%-Water 25 Gm/50 Ml Disp.Syrin) 0 gm IV X1 PRN; Protocol PRN Reason: Hypoglycemia Enoxaparin Sodium (Enoxaparin 30 Mg/0.3 Ml Syringe) 30 mg SC BID MIA Glucagon (Glucagon 1 Mg/Ml Syringe) 1 mg IM .X1 PRN PRN Reason: Hypoglycemia Guaifenesin (Guaifenesin 1,200 Mg Tablet) 1,200 mg PO BID COUNT INCLUDES THE [facility] Last Admin: 04/06/20 23:58 Dose: 1,200 mg Documented by: Sodium Chloride () 250 mls @ 15 mls/hr IV .[id number] PRN PRN Reason: Saline Flush Sodium Chloride () 250 mls @ 15 mls/hr IV .[id number] PRN PRN Reason: Additional IVPB Infusion Influenza Virus Vaccine Quadrival (Influenza Vaccine (6mos+)/Pf 0.5 Ml Syringe) 0.5 ml IM .ONCE ONE Stop: 10/29/20 10:01 Insulin Human Lispro (Insulin Lispro 100 Unit/Ml Insuln.Pen) 0 unit SC [facility] COUNT INCLUDES THE [facility]; Protocol Last Admin: 04/07/20 07:10 Dose: 4 units Documented by: Levothyroxine Sodium (Levothyroxine 25 Mcg Tablet) 25 mcg PO SuSa@1000 MIA Levothyroxine Sodium (Levothyroxine 50 Mcg Tablet) 50 mcg PO MoTuWeThFr@1000 MIA Melatonin (Melatonin 3 Mg Tablet) 3 mg PO QHS PRN PRN PRN Reason: INSOMNIA Miscellaneous Information (Inhaler, Assist Devices 1 Each Spacer) 1 each INHALATION PRN PRN PRN Reason: WITH ALBUTEROL MDI Nutritional Formula (Lactose Free) (Glucerna Shake 120 Ml Liquid) 120 ml PO 4X/DAY COUNT INCLUDES THE [facility] Ondansetron HCl (Ondansetron 4 Mg/2 Ml Vial) 4 mg IV Q8H PRN PRN PRN Reason: NAUSEA/VOMITING Sodium Chloride (0.9% Saline Lock 10 Ml Syringe) 10 - 40 ml IV UD PRN PRN Reason: SALINE FLUSH Tolterodine Tartrate (Tolterodine Tartrate 2 Mg Cap.Sa) 2 mg PO DAILY COUNT INCLUDES THE [facility] Medical Necessity - Tobacco Use Smoking Status: Never smoker Tobacco Use: Non-smoker Assessment/Plan All Active Problems COVID-19 (Acute) Hypoxia (Acute) COVID-19 virus infection (Acute) COPD exacerbation (Acute) 1. Acute hypoxic respiratory insufficiency secondary to acute COVID-19 infection/pneumonia, currently on 2 L of oxygen Admitting chest x-ray showed no acute cardiopulmonary process. CTA of the chest showed left lower lobe infiltrate, bilateral upper lobe groundglass opacities, multifocal on the left No PE seen. Continue with breathing treatments, po steroids, encourage use of incentive spirometer. Wean off oxygen for SPO2 more than 94% 2. Acute COVID-19 infection/pneumonia, with hypoxia ID and pulmonology following, continue on oral Decadron and redemsivir Convalescent plasma planned 3. Hypothyroidism, continue on synthroid 4. Hyperlipidemia: Continue home statin regimen 5. Type II DM, on metformin; Metformin on hold Blood sugars are uncontrolled, will check HbA1c, continue with blood glucose check and insulin sliding scale 6. DVT prophylaxis on Lovenox twice daily Inpatient E&M: [id number] [facility] Hosp L2
[2020-04-07] MEDS: Enoxaparin 30 MG/0.3 ML Syringe SC ×2 (08:44→22:57)
[2020-04-07] MEDS: guaiFENesin 1,200 MG Tablet 1200 MG PO ×2 (08:44→22:57)
[2020-04-07] MEDS: INHALER, ASSIST DEVICES 1 EACH SPACER INHALATION (08:44)
[2020-04-07] MEDS: Levothyroxine 50 MCG Tablet PO (08:44)
[2020-04-07] MEDS: Tolterodine Tartrate 2 MG CAP.SA PO (08:45)
[2020-04-07] MEDS: dexAMETHasone 4 MG Tablet 6 MG PO (08:45)
--- NOTE | 2020-04-07 11:01 | NURSING ---
female phoned in, states she is pt daughter Heather, updated on status.
[2020-04-07 11:14] LABS: BNP,B-Type NATRIURETIC PEPTIDE 48.2 pg/mL (0-100)
--- NOTE | 2020-04-07 11:23 | PCM.HP.ID ---
Problem List (1) COVID-19 Status: Acute Reason for Consult: covid Consulted by: Dr. Reyes History of Present Illness: The patient is a 69 year old M presented with 2 days of weakness and falling at home. Has had dry cough for about a week, about 4-5 days of chills, aches. No sputum, no change in taste or smell. at home feeling fine. Came to ED, sat was 88%. Started on dex and lovenox proph. Full ROS performed and neg except as noted above. - Medical History Past Medical History (Chronic Problems): Chronic Problems Acute and chronic respiratory failure with hypoxia (Chronic) Venous insufficiency of both lower extremities (Chronic) Hypothyroidism (Chronic) Hemiplegia affecting left nondominant side (Chronic) Venous insufficiency of both lower extremities (Chronic) Allergies/Adverse Reactions: Allergies No Known Allergies Allergy (Verified 04/06/20 17:12) Home Medications: Ambulatory Orders Medication Instructions Recorded RX: Albuterol IH (ProAir) [Proair 2 puff INHALATION Q4H PRN PRN 04/18/18 Hfa] RX: Levothyroxine [Synthroid] 25 mcg PO SUSA 04/18/18 RX: Levothyroxine [Synthroid] 50 mcg PO MOTUWETHFR 04/18/18 RX: Oxybutynin Chloride [Ditropan 5 mg PO DAILY 04/18/18 Xl] Metformin HCl [Glucophage Xr] 500 mg PO BID 04/06/20 Rosuvastatin Calcium [Crestor] 5 mg PO MOTH 04/06/20 - Social History Tobacco Use: non-smoker Vital Signs Temp Pulse Resp BP Pulse Ox 98.4 F 64 18 115/72 94 04/07/20 08:37 04/07/20 08:37 04/07/20 08:37 04/07/20 08:37 04/07/20 08:37 Oxygen Flow Rate (L/min) 2 Oxygen Delivery Method Nasal Cannula Weight: 99.2 kg Body Mass Index (BMI) 37.3 Microbiology Past 72 Hours 04/06/20 18:40 Respiratory Panel (PCR) - Final Mucosa - Nose Laboratory Tests Past 24 Hrs 04/06/20 04/06/20 04/06/20 17:57 17:57 17:57 WBC 7.5 RBC 5.12 Hgb 14.2 Hct 44.7 MCV 87.3 MCH 27.7 MCHC 31.8 L RDW Std Deviation 45.2 H RDW Coeff of Kay 14.0 Plt Count 176 MPV 10.6 Immature Gran % (Auto) 0.400 Neut % (Auto) 78.4 H Lymph % (Auto) 13.6 L [place] % (Auto) 7.3 Eos % (Auto) 0.0 Baso % (Auto) 0.3 Absolute Neuts (auto) 5.9 Absolute Lymphs (auto) 1.02 Nucleated RBC % 0 Differential Comment D-Dimer Quant (PE/DVT) Sodium Cancelled Potassium Cancelled Chloride Cancelled Carbon Dioxide Cancelled Anion Gap Cancelled BUN Cancelled Creatinine Cancelled Estim Creat Clear Calc Cancelled Est GFR (MDRD) Af Amer Cancelled Est GFR (MDRD) Non-Af Cancelled BUN/Creatinine Ratio Cancelled Glucose Cancelled Lactic Acid Cancelled Calcium Cancelled Total Bilirubin Cancelled AST Cancelled ALT Cancelled Alkaline Phosphatase Cancelled Troponin I B-Natriuretic Peptide Total Protein Cancelled Albumin Cancelled Globulin Cancelled Albumin/Globulin Ratio Cancelled COVID-19 (ARTEM) 04/06/20 04/06/20 04/06/20 18:02 18:40 18:50 WBC RBC Hgb Hct MCV MCH MCHC RDW Std Deviation RDW Coeff of Kay Plt Count MPV Immature Gran % (Auto) Neut % (Auto) Lymph % (Auto) [place] % (Auto) Eos % (Auto) Baso % (Auto) Absolute Neuts (auto) Absolute Lymphs (auto) Nucleated RBC % Differential Comment D-Dimer Quant (PE/DVT) 1.85 H* Sodium 140 Potassium 3.6 Chloride 105 Carbon Dioxide 31.0 Anion Gap 4 L BUN 8 Creatinine 0.83 Estim Creat Clear Calc 69.34 Est GFR (MDRD) Af Amer 118 Est GFR (MDRD) Non-Af 98 BUN/Creatinine Ratio 9.7 L Glucose 176 H Lactic Acid Calcium 8.7 Total Bilirubin 0.20 AST 41 H ALT 26 Alkaline Phosphatase 90 Troponin I B-Natriuretic Peptide Total Protein 7.1 Albumin 3.1 L Globulin 4.0 Albumin/Globulin Ratio 0.8 L COVID-19 (ARTEM) Detected 04/06/20 04/07/20 04/07/20 18:50 06:00 06:00 WBC 5.9 RBC 4.80 Hgb 12.9 L Hct 42.5 MCV 88.5 MCH 26.9 L MCHC 30.4 L RDW Std Deviation 46.0 H RDW Coeff of Kay 14.1 Plt Count 142 L MPV 9.5 Immature Gran % (Auto) 0.300 Neut % (Auto) 87.0 H Lymph % (Auto) 9.6 L [place] % (Auto) 2.9 Eos % (Auto) 0.0 Baso % (Auto) 0.2 Absolute Neuts (auto) 5.2 Absolute Lymphs (auto) 0.57 L Nucleated RBC % 0 Differential Comment SCANNED D-Dimer Quant (PE/DVT) Sodium 139 Potassium 4.2 Chloride 103 Carbon Dioxide 29.0 Anion Gap 7 BUN 9 Creatinine 0.75 Estim Creat Clear Calc 57.56 Est GFR (MDRD) Af Amer 132 Est GFR (MDRD) Non-Af 109 BUN/Creatinine Ratio 12.0 Glucose 226 H Lactic Acid 1.2 Calcium 8.2 L Total Bilirubin 0.30 AST 43 H ALT 25 Alkaline Phosphatase 76 Troponin I B-Natriuretic Peptide Total Protein 6.6 Albumin 2.7 L Globulin 3.9 Albumin/Globulin Ratio 0.7 L COVID-19 (ARTEM) 04/07/20 04/07/20 06:00 06:00 WBC RBC Hgb Hct MCV MCH MCHC RDW Std Deviation RDW Coeff of Kay Plt Count MPV Immature Gran % (Auto) Neut % (Auto) Lymph % (Auto) [place] % (Auto) Eos % (Auto) Baso % (Auto) Absolute Neuts (auto) Absolute Lymphs (auto) Nucleated RBC % Differential Comment D-Dimer Quant (PE/DVT) Sodium Potassium Chloride Carbon Dioxide Anion Gap BUN Creatinine Estim Creat Clear Calc Est GFR (MDRD) Af Amer Est GFR (MDRD) Non-Af BUN/Creatinine Ratio Glucose Lactic Acid Calcium Total Bilirubin AST ALT Alkaline Phosphatase Troponin I < 0.015 B-Natriuretic Peptide 48.2 Total Protein Albumin Globulin Albumin/Globulin Ratio COVID-19 (ARTEM) - Other Studies Radiology: [] reviewed Other Studies: [] Route of nutrition/ use of supplements: [] Nutritional Intake: [] IV Site: [] Hogan Catheter: [] - Physical Exam General: Alert, Oriented x3, Cooperative HEENT: Atraumatic, PERRLA, EOMI Neck: Supple, No Nodes Lungs: Diminished Cardiovascular: Regular rate, Regular Rhythm Abdomen: Soft, Non Tender, Non-Distended Extremities: No edema Skin: No rashes IV Site: Peripheral, without redness Musculoskeletal: No Tenderness to Palpation of Joints or Extremities Neurological: Cranial nerves II-XII grossly intact - Assessment/Plan Antibiotics: [] Assessment/Plan: [] Active and Suspected Problems COVID-19 (Acute) Hypoxia (Acute) COVID-19 virus infection (Acute) COPD exacerbation (Acute) covid with hypoxia - cont dex. Will start remdesivir. Reviewed EUA and risks/benefits of plasma with him, and we agree on starting. Checking ABO, trop, BNP. CT neg for PE, on lovenox proph. Recommended get tested and quarantine. Will follow, thank you
--- NOTE | 2020-04-07 11:46 | CASEMGMT ---
RN CM Assessment Note Introduced role of CM to patient's @ home. Demographics, PCP verified. Per , the patient was having increasing weakness at home due to the illness and had 2 falls. She states the physical therapist for [facility] was working with the patient day of admission and helped him into the car. plans to have patient return home if able to ambulate safely. has not been tested, however she had symptoms last week. RN CM recommended calling to her physician to update. -masks available, and family can bring groceries, supplies if needed. Presentation: falls, shortness of breath Diagnosis: COVID-19 PCP: Dr. Barros Insurance: [facility] Preferred Pharmacy: [facility] Prescription Benefit: yes LNOK: , Sharron Borrego Living Arrangements: Lives independently with his . states she assists with bathing, and some dressing. The patient uses a walker around the home. Tranportation: family drives DME: walker, cane, cpap, no oxygen. If Home oxygen is needed, [facility] in [place] requested. PH: . FAX: HHC: [facility] in [place]. Called and updated that patient is in hospital with covid + testing. They can resume care on discharge after quarantine is over. PH: FX: Patient DC Goals: Home DC Plan: anticipate home. PT/OT evaluations pending. will review for dc planning. CM available for discharge planning coordination. Contact CM for any concerns/needs that may arise. Cam ARTHUR RN ACM
[2020-04-07 11:55] LABS: Bedside Glucose 327 mg/dL (70-110)
--- NOTE | 2020-04-07 15:29 | PCM.CONS.PUL ---
Problem List (1) Possible COPD/obesity hypoventilation sy Status: Inactive (2) COVID-19 Status: Acute (3) Hypothyroidism Status: Chronic (4) 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 (5) Venous insufficiency of both lower extremities Status: Chronic Reason for Consult Date of Consultation: 04/07/20 Reason for Consultation: Hypoxia History of Present Illness: The patient is a 69 year old M, with past medical history listed below, who presented to [facility] on 04/06/2020 secondary to progressive shortness of breath over the last 2 to 3 days. Patient reportedly had fallen the past couple of days secondary to weakness and breathing problems. Patient denied any concomitant chest pain, palpitations, fevers or chills. Patient did admit to a dry cough, but did not have any posttussive emesis, nausea or vomiting. Patient did have a nephew that recently tested positive for COVID-19. In the ER, patient was noted to be in sinus rhythm without tachycardia. Lungs reportedly had wheezing. Laboratory work-up was relatively unremarkable. Chest x-ray was obtained showing no acute process, but a follow-up CTA showed a left lower lobe infiltrate with bilateral groundglass opacities, borderline cardiomegaly and coronary artery calcifications. Patient was ambulated on room air, but was profoundly weak and desaturated to 88% with conversation. Patient was admitted to the medical unit for further evaluation. Patient reports relatively no change since admission to the hospital. Patient states he has required supplemental oxygen in the past for brief periods of time, but is never been a smoker and has no history of lung disease that he is aware of. Patient denies any occupational exposures. Patient states his biggest complaint is weakness, but he has not tried to get up yet. Patient does believe that the nasal cannula oxygen helps his strength. Patient states that he is already discussed interventions with infectious disease and wants to initiate therapy. Patient is unable to reliably tell me when he started to have symptoms, but does know a sick contact. Review of systems otherwise negative from a constitutional, HEENT, respiratory, cardiovascular, GI, genitourinary, musculoskeletal, skin, neurologic, psychiatric and hematologic system unless stated above. Past Medical History Past Medical History (Chronic Problems): Chronic Problems Acute and chronic respiratory failure with hypoxia (Chronic) Venous insufficiency of both lower extremities (Chronic) Hypothyroidism (Chronic) Hemiplegia affecting left nondominant side (Chronic) Venous insufficiency of both lower extremities (Chronic) Allergies No Known Allergies Allergy (Verified 04/06/20 17:12) Home Medications: Ambulatory Orders Medication Instructions Recorded Albuterol IH (ProAir) [Proair Hfa] 2 puff INHALATION Q4H PRN PRN 04/18/18 Levothyroxine [Synthroid] 25 mcg PO SUSA 04/18/18 Levothyroxine [Synthroid] 50 mcg PO MOTUWETHFR 04/18/18 Oxybutynin Chloride [Ditropan Xl] 5 mg PO DAILY 04/18/18 Metformin HCl [Glucophage Xr] 500 mg PO BID 04/06/20 Rosuvastatin Calcium [Crestor] 5 mg PO MOTH 04/06/20 Surgical History: no surgical history Smoking Status: Never smoker Tobacco Use: Non-smoker - *Family History Paternal History Items: Cancer, - Maternal History Items: - - Denies knowledge of maternal medical history. Review of Systems Comment: See HPI Patient Problems: Active and Suspected Problems COVID-19 (Acute) Hypoxia (Acute) COVID-19 virus infection (Acute) COPD exacerbation (Acute) Objective: All imaging was personally reviewed. CT of the chest does not show any acute pulmonary embolism, but does have bilateral groundglass opacities. Patient does not have any history of pulmonary function tests available for review. Patient did have an echocardiogram in 2018 showing concentric moderate LVH with an EF of 75% and stage I diastolic dysfunction. Unable to quantify pulmonary artery pressures at that time, but this was relatively stable compared to 2009. - Physical Exam Vitals/I&O's: Vital Signs Temp Pulse Resp BP Pulse Ox 36.9 C 64 18 115/72 94 04/07/20 08:37 04/07/20 08:37 04/07/20 08:37 04/07/20 08:37 04/07/20 08:37 Oxygen Flow Rate (L/min) 2.5 Oxygen Delivery Method Nasal Cannula Weight: 99.2 kg Body Mass Index (BMI) 37.3 Intake and Output for Last 24 Hours 04/05/20 04/06/20 04/07/20 23:59 23:59 23:59 Intake Total 400 / 400 Output Total 200 / 200 Balance 200 / 200 General: Alert, Oriented x3, Cooperative, No apparent distress, Well developed, Well nourished, - - Mild conversational dyspnea HEENT: Atraumatic, PERRLA, EOMI, Normocephalic Oral: Moist Mucosa, No Gingival or Mucosal Lesions/ Ulcerations Neck: Supple, No JVD, No Nodes, Trachea Midline Lungs: No rhonchi, No rales, Diminished, Wheezes - Sporadic at end collation Cardiovascular: Regular rate, Regular Rhythm, Normal S1, Normal S2, No murmurs, No rub noted, No Gallop Abdomen: Bowel Sounds Present, Soft, Non Tender, Non-Distended, Obese Extremities: No clubbing, No cyanosis, Edema Skin: No rashes, No breakdown Musculoskeletal: No Tenderness to Palpation of Joints or Extremities Lymphatic: No Cervical, Supraclavicular, or Inguinal Adenopathy Neurological: - - Decreased resistance, but nonfocal exam. No facial droop noted. Sensation appears to be intact. Psych/Mental Status: Appropriate, Flat Affect Microbiology Past 72 Hours 04/06/20 18:40 Mucosa - Nose Respiratory Panel (PCR) - Final Laboratory Results 04/06/20 17:57: WBC 7.5, RBC 5.12, Hgb 14.2, Hct 44.7, MCV 87.3, MCH 27.7, MCHC 31.8 L, RDW Std Deviation 45.2 H, RDW Coeff of Kay 14.0, Plt Count 176, MPV 10.6, Immature Gran % (Auto) 0.400, Neut % (Auto) 78.4 H, Lymph % (Auto) 13.6 L, Harney % (Auto) 7.3, Eos % (Auto) 0.0, Baso % (Auto) 0.3, Absolute Neuts (auto) 5.9, Absolute Lymphs (auto) 1.02, Nucleated RBC % 0 04/06/20 17:57: Sodium Cancelled, Potassium Cancelled, Chloride Cancelled, Carbon Dioxide Cancelled, Anion Gap Cancelled, BUN Cancelled, Creatinine Cancelled, Estim Creat Clear Calc Cancelled, Est GFR (MDRD) Af Amer Cancelled, Est GFR (MDRD) Non-Af Cancelled, BUN/Creatinine Ratio Cancelled, Glucose Cancelled, Calcium Cancelled, Total Bilirubin Cancelled, AST Cancelled, ALT Cancelled, Alkaline Phosphatase Cancelled, Total Protein Cancelled, Albumin Cancelled, Globulin Cancelled, Albumin/Globulin Ratio Cancelled 04/06/20 17:57: Lactic Acid Cancelled 04/06/20 18:02: D-Dimer Quant (PE/DVT) 1.85 H* 04/06/20 18:40: COVID-19 (ARTEM) Detected 04/06/20 18:50: Sodium 140, Potassium 3.6, Chloride 105, Carbon Dioxide 31.0, Anion Gap 4 L, BUN 8, Creatinine 0.83, Estim Creat Clear Calc 69.34, Est GFR (MDRD) Af Amer 118, Est GFR (MDRD) Non-Af 98, BUN/Creatinine Ratio 9.7 L, Glucose 176 H, Calcium 8.7, Total Bilirubin 0.20, AST 41 H, ALT 26, Alkaline Phosphatase 90, Total Protein 7.1, Albumin 3.1 L, Globulin 4.0, Albumin/Globulin Ratio 0.8 L 04/06/20 18:50: Lactic Acid 1.2 04/07/20 06:00: WBC 5.9, RBC 4.80, Hgb 12.9 L, Hct 42.5, MCV 88.5, MCH 26.9 L, MCHC 30.4 L, RDW Std Deviation 46.0 H, RDW Coeff of Kay 14.1, Plt Count 142 L, MPV 9.5, Immature Gran % (Auto) 0.300, Neut % (Auto) 87.0 H, Lymph % (Auto) 9.6 L, Harney % (Auto) 2.9, Eos % (Auto) 0.0, Baso % (Auto) 0.2, Absolute Neuts (auto) 5.2, Absolute Lymphs (auto) 0.57 L, Nucleated RBC % 0, Differential Comment SCANNED 04/07/20 06:00: Sodium 139, Potassium 4.2, Chloride 103, Carbon Dioxide 29.0, Anion Gap 7, BUN 9, Creatinine 0.75, Estim Creat Clear Calc 57.56, Est GFR (MDRD) Af Amer 132, Est GFR (MDRD) Non-Af 109, BUN/Creatinine Ratio 12.0, Glucose 226 H, Calcium 8.2 L, Total Bilirubin 0.30, AST 43 H, ALT 25, Alkaline Phosphatase 76, Total Protein 6.6, Albumin 2.7 L, Globulin 3.9, Albumin/Globulin Ratio 0.7 L 04/07/20 06:00: Troponin I < 0.015 04/07/20 06:00: B-Natriuretic Peptide 48.2 04/07/20 07:05: POC Glucose 221 H 04/07/20 10:55: Blood Type B POSITIVE 04/07/20 11:33: POC Glucose 327 H Current Medications Acetaminophen (Acetaminophen 325 Mg Tablet) 650 mg PO Q6H PRN PRN PRN Reason: Pain Score 1-10/Temp > 100.7 F Last Admin: 04/07/20 00:09 Dose: 650 mg Documented by: Albuterol Sulfate (Albuterol Sulfate 18 Gm Inhaler (200 Puffs)) 2 puff IH Q4HWA [facility] Last Admin: 04/07/20 08:44 Dose: 2 puff Documented by: Atorvastatin Calcium (Atorvastatin Calcium 10 Mg Tablet) 10 mg PO MoTh@2200 MIA Dexamethasone (Dexamethasone 4 Mg Tablet) 6 mg PO DAILY@0800 [facility] Last Admin: 04/07/20 08:45 Dose: 6 mg Documented by: Dextrose (Dextrose 50%-Water 25 Gm/50 Ml Disp.Syrin) 0 gm IV X1 PRN; Protocol PRN Reason: Hypoglycemia Enoxaparin Sodium (Enoxaparin 30 Mg/0.3 Ml Syringe) 30 mg SC BID [facility] Last Admin: 04/07/20 08:44 Dose: 30 mg Documented by: Glucagon (Glucagon 1 Mg/Ml Syringe) 1 mg IM .X1 PRN PRN Reason: Hypoglycemia Guaifenesin (Guaifenesin 1,200 Mg Tablet) 1,200 mg PO BID [facility] Last Admin: 04/07/20 08:44 Dose: 1,200 mg Documented by: Sodium Chloride () 250 mls @ 15 mls/hr IV .[id number] PRN PRN Reason: Saline Flush Sodium Chloride () 250 mls @ 15 mls/hr IV .[id number] PRN PRN Reason: Additional IVPB Infusion Remdesivir 100 mg/ Sodium (Chloride) 250 mls @ 125 mls/hr IV DAILY [facility]; Protocol Stop: 04/11/20 11:59 Sodium Chloride () 500 mls @ 15 mls/hr IV PRN PRN PRN Reason: Blood Transfusion Sodium Chloride () 250 mls @ 15 mls/hr IV .[id number] PRN PRN Reason: Saline Flush Sodium Chloride () 250 mls @ 15 mls/hr IV .[id number] PRN PRN Reason: Additional IVPB Infusion Insulin Human Lispro (Insulin Lispro 100 Unit/Ml Insuln.Pen) 0 unit SC [facility]; Protocol Last Admin: 04/07/20 11:37 Dose: 8 units Documented by: Levothyroxine Sodium (Levothyroxine 25 Mcg Tablet) 25 mcg PO SuSa@1000 MIA Levothyroxine Sodium (Levothyroxine 50 Mcg Tablet) 50 mcg PO MoTuWeThFr@1000 [facility] Last Admin: 04/07/20 08:44 Dose: 50 mcg Documented by: Melatonin (Melatonin 3 Mg Tablet) 3 mg PO QHS PRN PRN PRN Reason: INSOMNIA Miscellaneous Information (Inhaler, Assist Devices 1 Each Spacer) 1 each INHALATION PRN PRN PRN Reason: WITH ALBUTEROL MDI Last Admin: 04/07/20 08:44 Dose: 1 each Documented by: Ondansetron HCl (Ondansetron 4 Mg/2 Ml Vial) 4 mg IV Q8H PRN PRN PRN Reason: NAUSEA/VOMITING Sodium Chloride (0.9% Saline Lock 10 Ml Syringe) 10 - 40 ml IV UD PRN PRN Reason: SALINE FLUSH Tolterodine Tartrate (Tolterodine Tartrate 2 Mg Cap.Sa) 2 mg PO DAILY [facility] Last Admin: 04/07/20 08:45 Dose: 2 mg Documented by: Clinical Impression(s) from Imaging Studies Chest X-Ray 04/06/20 18:50 IMPRESSION: No acute cardiopulmonary process. Electronically Signed: Georgette Drew MD at 19:07 EDT Tel , Service support , Chest CTA 04/07/20 04:10 IMPRESSION: 1. No PE or thoracic aortic dissection. 2. Left lower lobe infiltrate and bilateral upper lobe groundglass opacities, multifocal on the left. The CT findings support the provided clinical diagnosis of COVID pneumonia. 3. Borderline cardiomegaly. Coronary artery calcifications. Old granulomatous disease. Individualized dose optimization techniques were used for this CT. at 0626 Reported and signed by: Melvin Edgar MD Electronically Signed: Melvin Edgar, at 6:25 EDT Tel , Service support , Assessment/Plan All Active Problems COVID-19 (Acute) Hypoxia (Acute) COVID-19 virus infection (Acute) COPD exacerbation (Acute) RECOMMENDATIONS: 1. Steroids, anticoagulation, convalescent serum and remdesivir per ID 2. Wean oxygen as tolerated 3. Consider diuretic challenge 4. Likely okay to monitor off antibiotics from my perspective 5. Monitor blood sugars closely with sliding scale if indicated IMPRESSIONS: 1. Acute hypoxic respiratory insufficiency secondary to COVID-19 Chest x-ray was relatively unremarkable. CT of the chest did show some scattered groundglass opacities. Patient does not have significant emphysematous changes noted. Reasonable to use bronchodilators. Steroids, anticoagulation, convalescent serum and remdesivir per infectious disease. Patient does have a history of diastolic dysfunction, so a diuretic challenge would be reasonable. Symptomatic treatment for fever and Mucinex to help with pulmonary toileting will also be helpful. Exact timing of onset of symptoms is unclear, should patient may continue to decompensate despite aggressive therapy. Monitor for 24 to 48 hours 2. Obesity/advanced age/diabetes mellitus/history of poor wound healing Complicates care, management, recovery and prognosis. We will need to monitor patient closely for complications associated with steroid therapy. Sliding scale insulin has been ordered. Inpatient E&M: 89556 Init Hosp L3
[2020-04-07 19:36] LABS: Bedside Glucose 287 mg/dL (70-110)
[2020-04-07] MEDS: 0.9% Saline Lock 10 ML Syringe IV (22:57)
[2020-04-07] MEDS: Atorvastatin Calcium 10 MG Tablet PO (22:57)
[2020-04-08] VITALS (8 sets, daily range): BP systolic 102–136; BP diastolic 58–75; PULSE 60–71; RESP 18–20; TEMP 36.6–36.9; O2SAT 91–96
[2020-04-08] LABS: Bedside Glucose 294 mg/dL (70-110)
[2020-04-08 06:04] LABS: Hematocrit 40.9 % (40-54); Hemoglobin 12.5 g/dL (13.0-16.5); Mean Corp Hgb Conc 30.6 g/dL (32-36); Mean Corpuscular Hgb 26.5 pg (27.0-32.0); Mean Corpuscular Volume 86.8 fL (80-94); Mean Platelet Vol. 10.3 fl (6.2-12.0); Platelet Count 178 K/mm3 (150-450); RBC Distribution Width CV 13.6 % (11.6-14.6); RBC Distribution Width SD 43.8 fl (35.1-43.9); Red Blood Count 4.71 M/mm3 (4.6-6.2); White Blood Count 9.3 K/mm3 (4.4-11.0)
[2020-04-08] MEDS: Insulin Lispro 100 UNIT/ML INSULN.PEN SC ×4 (06:16→22:12)
[2020-04-08 06:36] LABS: ALB/GLOB Ratio 0.8 RATIO (0.9-2.4); AST(SGOT) 39 U/L (15-37); Alanine Aminotransfer ALT/SGPT 27 U/L (16-61); Albumin, Serum 2.8 g/dL (3.2-5.0); Alkaline Phosphatase 76 U/L (45-117); Anion Gap 6 (5-15); BUN 12 mg/dL (7-18); BUN/Creat Ratio 22.3 RATIO (10-20); Calcium,Total 7.9 mg/dL (8.5-10.1); Chloride 103 mmol/L (98-107); Creatinine, Serum 0.54 mg/dL (0.70-1.30); EST Glomerular Filtration Rate 160 mL/min (>60); Est Glom Filt Rate - Afr Amer 194 mL/min (>60); Estimated Creatinine Clearance 57.56 ml/min; Globulin 3.3 g/dL (2.2-4.2); Glucose 163 mg/dL (74-106); Potassium 3.9 mmol/L (3.5-5.1); Protein, Total 6.1 g/dL (6.4-8.2); Sodium Level 141 mmol/L (136-145)
[2020-04-08 07:06] LABS: Bedside Glucose 196 mg/dL (70-110)
--- NOTE | 2020-04-08 07:28 | PN_ITS ---
Patient Problems: Active and Suspected Problems COVID-19 (Acute) Hypoxia (Acute) COVID-19 virus infection (Acute) COPD exacerbation (Acute) Reason for Visit: Follow-up on hypoxia/Acute COVID-19 infection/pneumonia Subjective: Patient was seen and examined. He feels slightly improved. Denies any worseni ng shortness of breath. Remains on 2 L of oxygen. No fevers or chills or nausea or vomiting. Patient has been found to be weak by physical and Occupational Therapy. He is a max-2 person assist. Objective: Physical exam: General: Alert, Oriented x3, Cooperative, No apparent distress, - - 2 L of oxygen HEENT: Atraumatic, PERRLA, EOMI, Normocephalic Oral: Moist Mucosa Neck: Supple Lungs: Diminished Cardiovascular: Regular rate, Regular Rhythm, Normal S1, Normal S2 Abdomen: Bowel Sounds Present, Soft, Non Tender, Non-Distended, No Hepato- splenomegaly Extremities: No edema Skin: No rashes Musculoskeletal: No Tenderness to Palpation of Joints or Extremities Lymphatic: No Cervical, Supraclavicular, or Inguinal Adenopathy Neurological: Cranial nerves II-XII grossly intact, Neuro grossly intact Psych/Mental Status: Normal Affect, Appropriate Vitals/I&O's: Vital Signs Temp Pulse Resp BP Pulse Ox 97.8 F 60 18 110/58 L 95 04/08/20 01:57 04/08/20 01:57 04/08/20 01:57 04/08/20 01:57 04/08/20 01:57 Oxygen Flow Rate (L/min) 2 Oxygen Delivery Method Nasal Cannula Weight: 99.2 kg Body Mass Index (BMI) 37.3 Intake and Output for Last 24 Hours 04/06/20 04/07/20 04/08/20 23:59 23:59 23:59 Intake Total 1250 / 1250 400 / 400 Output Total 600 / 600 500 / 500 Balance 650 / 650 -100 / -100 Microbiology Past 72 Hours 04/06/20 18:40 Mucosa - Nose Respiratory Panel (PCR) - Final Laboratory Results 04/07/20 06:00: Troponin I < 0.015 04/07/20 06:00: B-Natriuretic Peptide 48.2 04/07/20 10:55: Blood Type B POSITIVE 04/07/20 11:33: POC Glucose 327 H 04/07/20 16:18: POC Glucose 287 H 04/07/20 17:54: Hemoglobin A1c 7.0 H 04/07/20 22:43: POC Glucose 294 H 04/08/20 04:44: WBC 9.3, RBC 4.71, Hgb 12.5 L, Hct 40.9, MCV 86.8, MCH 26.5 L, MCHC 30.6 L, RDW Std Deviation 43.8, RDW Coeff of Kay 13.6, Plt Count 178, MPV 10.3 04/08/20 04:44: Sodium 141, Potassium 3.9, Chloride 103, Carbon Dioxide 32.0, Anion Gap 6, BUN 12, Creatinine 0.54 L, Estim Creat Clear Calc 57.56, Est GFR (MDRD) Af Amer 194, Est GFR (MDRD) Non-Af 160, BUN/Creatinine Ratio 22.3 H, Glucose 163 H, Calcium 7.9 L, Total Bilirubin 0.30, AST 39 H, ALT 27, Alkaline Phosphatase 76, Total Protein 6.1 L, Albumin 2.8 L, Globulin 3.3, Albumin/Globulin Ratio 0.8 L 04/08/20 06:14: POC Glucose 196 H Current Medications Acetaminophen (Acetaminophen 325 Mg Tablet) 650 mg PO Q6H PRN PRN PRN Reason: Pain Score 1-10/Temp > 100.7 F Last Admin: 04/07/20 00:09 Dose: 650 mg Documented by: Albuterol Sulfate (Albuterol Sulfate 18 Gm Inhaler (200 Puffs)) 2 puff IH Q4HWA [facility] Last Admin: 04/08/20 06:16 Dose: 2 puff Documented by: Atorvastatin Calcium (Atorvastatin Calcium 10 Mg Tablet) 10 mg PO MoTh@2200 [facility] Last Admin: 04/07/20 22:57 Dose: 10 mg Documented by: Calamine/Phenol (Menthol/Lanolin/Calamine/Znox 113 Gm Tube) 1 applic TOPICAL BID [facility]; Protocol Dexamethasone (Dexamethasone 4 Mg Tablet) 6 mg PO DAILY@0800 [facility] Last Admin: 04/07/20 08:45 Dose: 6 mg Documented by: Dextrose (Dextrose 50%-Water 25 Gm/50 Ml Disp.Syrin) 0 gm IV X1 PRN; Protocol PRN Reason: Hypoglycemia Enoxaparin Sodium (Enoxaparin 30 Mg/0.3 Ml Syringe) 30 mg SC BID [facility] Last Admin: 04/07/20 22:57 Dose: 30 mg Documented by: Glucagon (Glucagon 1 Mg/Ml Syringe) 1 mg IM .X1 PRN PRN Reason: Hypoglycemia Guaifenesin (Guaifenesin 1,200 Mg Tablet) 1,200 mg PO BID [facility] Last Admin: 04/07/20 22:57 Dose: 1,200 mg Documented by: Sodium Chloride () 250 mls @ 15 mls/hr IV .[id number] PRN PRN Reason: Saline Flush Sodium Chloride () 250 mls @ 15 mls/hr IV .[id number] PRN PRN Reason: Additional IVPB Infusion Remdesivir 100 mg/ Sodium (Chloride) 250 mls @ 125 mls/hr IV DAILY [facility]; Protocol Stop: 04/11/20 11:59 Sodium Chloride () 500 mls @ 15 mls/hr IV PRN PRN PRN Reason: Blood Transfusion Last Admin: 04/07/20 16:56 Dose: 15 mls/hr Documented by: Sodium Chloride () 250 mls @ 15 mls/hr IV .[id number] PRN PRN Reason: Saline Flush Sodium Chloride () 250 mls @ 15 mls/hr IV .[id number] PRN PRN Reason: Additional IVPB Infusion Insulin Glargine (Insulin Glargine 100 Units/Ml Pen) 20 units SC DAILY [facility] Insulin Human Lispro (Insulin Lispro 100 Unit/Ml Insuln.Pen) 0 unit SC [facility]; Protocol Last Admin: 04/08/20 06:16 Dose: 2 units Documented by: Levothyroxine Sodium (Levothyroxine 25 Mcg Tablet) 25 mcg PO SuSa@1000 [facility] Levothyroxine Sodium (Levothyroxine 50 Mcg Tablet) 50 mcg PO MoTuWeThFr@1000 [facility] Last Admin: 04/07/20 08:44 Dose: 50 mcg Documented by: Melatonin (Melatonin 3 Mg Tablet) 3 mg PO QHS PRN PRN PRN Reason: INSOMNIA Miscellaneous Information (Inhaler, Assist Devices 1 Each Spacer) 1 each INHALATION PRN PRN PRN Reason: WITH ALBUTEROL MDI Last Admin: 04/07/20 08:44 Dose: 1 each Documented by: Ondansetron HCl (Ondansetron 4 Mg/2 Ml Vial) 4 mg IV Q8H PRN PRN PRN Reason: NAUSEA/VOMITING Sodium Chloride (0.9% Saline Lock 10 Ml Syringe) 10 - 40 ml IV UD PRN PRN Reason: SALINE FLUSH Last Admin: 04/07/20 22:57 Dose: 10 ml Documented by: Tolterodine Tartrate (Tolterodine Tartrate 2 Mg Cap.Sa) 2 mg PO DAILY [facility] Last Admin: 04/07/20 08:45 Dose: 2 mg Documented by: Medical Necessity - Tobacco Use Smoking Status: Never smoker Tobacco Use: Non-smoker Assessment/Plan All Active Problems COVID-19 (Acute) Hypoxia (Acute) COVID-19 virus infection (Acute) COPD exacerbation (Acute) 1. Acute hypoxic respiratory insufficiency secondary to acute COVID-19 infection/pneumonia, currently on 2 L of oxygen Admitting chest x-ray showed no acute cardiopulmonary process. CTA of the chest showed left lower lobe infiltrate, bilateral upper lobe groundglass opacities, multifocal on the left No PE seen. Continue with breathing treatments, po steroids, encourage use of incentive spirometer. Wean off oxygen for SPO2 more than 94% 2. Acute COVID-19 infection/pneumonia, with hypoxia ID and pulmonology following, continue on oral Decadron and redemsivir Convalescent plasma planned 3. Hypothyroidism, continue on Synthroid 4. Hyperlipidemia, continue on statin 5. Type II DM, HgbA1c 7.0, Metformin on hold Patient's renal function has remained stable Blood sugars slightly uncontrolled secondary to Decadron We will resume Metformin, started on Lantus, continue with blood glucose checks and ISS 6. DVT prophylaxis on Lovenox twice daily Inpatient E&M: 22882 [facility] Hosp L2
[2020-04-08] MEDS: dexAMETHasone 4 MG Tablet 6 MG PO (10:02)
[2020-04-08] MEDS: guaiFENesin 1,200 MG Tablet 1200 MG PO ×2 (10:03→21:58)
[2020-04-08] MEDS: Tolterodine Tartrate 2 MG CAP.SA PO (10:03)
[2020-04-08] MEDS: Enoxaparin 30 MG/0.3 ML Syringe SC ×2 (10:03→21:58)
[2020-04-08] MEDS: Levothyroxine 50 MCG Tablet PO (11:34)
[2020-04-08] MEDS: Menthol/Lanolin/Calamine/Znox 113 GM Tube 1 APPLIC TOPICAL ×2 (11:35→21:58)
[2020-04-08] MEDS: 0.9% Saline Lock 10 ML Syringe IV (11:39)
[2020-04-08 12:10] LABS: Bedside Glucose 258 mg/dL (70-110)
--- NOTE | 2020-04-08 12:12 | CASEMGMT ---
RN ADOLFO Note: PT/OT notes showing the patient is max assist of 2 for activities. Per physician, patient is becoming medically ready for discharge as he is on 2L NC. RN ADOLFO called to to discuss dc planning. states she and the patient are the only ones at home, and she can only assist him to some with care. He was more independent prior to admission. Discussed SNF on dc for therapies and is agreeable. She would like SW to speak with her , and states they would consider [facility]. understands not all facilities will accept COVID patients. -Crissy MENA updated on above. Cam SPARKSN RN ACM
--- NOTE | 2020-04-08 14:28 | CASEMGMT ---
Addendum entered by Talia Owusu 04/08/20 15:52: SW spoke with dtr whom stated [facility] is too far and would like pt to go to [facility]. SW explained [facility] is not taking COVID positive pts. Dtr insisted they are as she spoke with admission the beginning of the week whom said they could take the pt. This worker spoke with Merl at [facility] whom confirmed they do not have any availability and are not taking COVID positive patients. Dtr's next choice is [facility]. Contacted [facility] whom confirmed they are currently accepting COVID positive patients and could possibly accommodate discharge by Saturday. Referral made. SW to continue to follow. Original Note: Social Work Spoke with patient about possibility of SNF placement for therapy to be more independent to return home. Pt agreeable to SNF and requested [facility] as he has been there in the past. [facility] is not accepting COVID positive patients at this time. Explained this to pt. Pt understandable. Offered [facility] and for him to speak with someone to learn more. Pt declined but agreed to be transferred there. Explained SW ill keep him informed of acceptance/denial and DC plans. Talia Owusu, SPECIAL SERVICES SUPER[employer]OR [employer]
--- NOTE | 2020-04-08 15:32 | PN.ID_ITS ---
Patient Problems: Active and Suspected Problems COVID-19 (Acute) Hypoxia (Acute) COVID-19 virus infection (Acute) COPD exacerbation (Acute) Subjective: Feeling better, less dyspnea, no fever - Physical Exam Vitals/I&O's: Vital Signs Temp Pulse Resp BP Pulse Ox 98.3 F 71 20 H 114/65 92 04/08/20 09:55 04/08/20 09:55 04/08/20 09:55 04/08/20 09:55 04/08/20 10:06 Oxygen Flow Rate (L/min) 2 Oxygen Delivery Method Nasal Cannula Weight: 99.2 kg Body Mass Index (BMI) 37.3 Intake and Output for Last 24 Hours 04/06/20 04/07/20 04/08/20 23:59 23:59 23:59 Intake Total 1250 / 1250 660.50 / 660.50 Output Total 600 / 600 900 / 900 Balance 650 / 650 -239.50 / -239.50 General: Alert, Cooperative, No apparent distress Lungs: Clear to auscultation, Diminished Cardiovascular: Regular rate, Regular Rhythm Abdomen: Soft, Non Tender, Non-Distended Skin: No rashes Microbiology Past 72 Hours 04/06/20 18:40 Mucosa - Nose Respiratory Panel (PCR) - Final Laboratory Results 04/07/20 16:18: POC Glucose 287 H 04/07/20 17:54: Hemoglobin A1c 7.0 H 04/07/20 22:43: POC Glucose 294 H 04/08/20 04:44: WBC 9.3, RBC 4.71, Hgb 12.5 L, Hct 40.9, MCV 86.8, MCH 26.5 L, MCHC 30.6 L, RDW Std Deviation 43.8, RDW Coeff of Kay 13.6, Plt Count 178, MPV 10.3 04/08/20 04:44: Sodium 141, Potassium 3.9, Chloride 103, Carbon Dioxide 32.0, Anion Gap 6, BUN 12, Creatinine 0.54 L, Estim Creat Clear Calc 57.56, Est GFR (MDRD) Af Amer 194, Est GFR (MDRD) Non-Af 160, BUN/Creatinine Ratio 22.3 H, Glucose 163 H, Calcium 7.9 L, Total Bilirubin 0.30, AST 39 H, ALT 27, Alkaline Phosphatase 76, Total Protein 6.1 L, Albumin 2.8 L, Globulin 3.3, Albumin/Globulin Ratio 0.8 L 04/08/20 06:14: POC Glucose 196 H 04/08/20 11:41: POC Glucose 258 H Current Medications Acetaminophen (Acetaminophen 325 Mg Tablet) 650 mg PO Q6H PRN PRN PRN Reason: Pain Score 1-10/Temp > 100.7 F Last Admin: 04/07/20 00:09 Dose: 650 mg Documented by: Albuterol Sulfate (Albuterol Sulfate 18 Gm Inhaler (200 Puffs)) 2 puff IH Q4HWA [facility] Last Admin: 04/08/20 10:04 Dose: 2 puff Documented by: Atorvastatin Calcium (Atorvastatin Calcium 10 Mg Tablet) 10 mg PO MoTh@2200 [facility] Last Admin: 04/07/20 22:57 Dose: 10 mg Documented by: Calamine/Phenol (Menthol/Lanolin/Calamine/Znox 113 Gm Tube) 1 applic TOPICAL BID [facility]; Protocol Last Admin: 04/08/20 11:35 Dose: 1 applicatio Documented by: Dexamethasone (Dexamethasone 4 Mg Tablet) 6 mg PO DAILY@0800 [facility] Last Admin: 04/08/20 10:02 Dose: 6 mg Documented by: Dextrose (Dextrose 50%-Water 25 Gm/50 Ml Disp.Syrin) 0 gm IV X1 PRN; Protocol PRN Reason: Hypoglycemia Enoxaparin Sodium (Enoxaparin 30 Mg/0.3 Ml Syringe) 30 mg SC BID [facility] Last Admin: 04/08/20 10:03 Dose: 30 mg Documented by: Glucagon (Glucagon 1 Mg/Ml Syringe) 1 mg IM .X1 PRN PRN Reason: Hypoglycemia Guaifenesin (Guaifenesin 1,200 Mg Tablet) 1,200 mg PO BID [facility] Last Admin: 04/08/20 10:03 Dose: 1,200 mg Documented by: Sodium Chloride () 250 mls @ 15 mls/hr IV .[id number] PRN PRN Reason: Saline Flush Last Infusion: 04/08/20 11:44 Dose: 0 mls/hr Documented by: Sodium Chloride () 250 mls @ 15 mls/hr IV .[id number] PRN PRN Reason: Additional IVPB Infusion Remdesivir 100 mg/ Sodium (Chloride) 250 mls @ 125 mls/hr IV DAILY [facility]; Protocol Stop: 04/11/20 11:59 Last Admin: 04/08/20 11:35 Dose: 125 mls/hr Documented by: Sodium Chloride () 500 mls @ 15 mls/hr IV PRN PRN PRN Reason: Blood Transfusion Last Infusion: 04/08/20 10:17 Dose: Infused Documented by: Sodium Chloride () 250 mls @ 15 mls/hr IV .[id number] PRN PRN Reason: Saline Flush Sodium Chloride () 250 mls @ 15 mls/hr IV .[id number] PRN PRN Reason: Additional IVPB Infusion Insulin Glargine (Insulin Glargine 100 Units/Ml Pen) 20 units SC DAILY [facility] Last Admin: 04/08/20 10:05 Dose: 20 units Documented by: Insulin Human Lispro (Insulin Lispro 100 Unit/Ml Insuln.Pen) 0 unit SC ACHS [facility]; Protocol Last Admin: 04/08/20 11:42 Dose: 4 units Documented by: Levothyroxine Sodium (Levothyroxine 25 Mcg Tablet) 25 mcg PO SuSa@1000 [facility] Levothyroxine Sodium (Levothyroxine 50 Mcg Tablet) 50 mcg PO MoTuWeThFr@1000 [facility] Last Admin: 04/08/20 11:34 Dose: 50 mcg Documented by: Melatonin (Melatonin 3 Mg Tablet) 3 mg PO QHS PRN PRN PRN Reason: INSOMNIA Miscellaneous Information (Inhaler, Assist Devices 1 Each Spacer) 1 each INHALATION PRN PRN PRN Reason: WITH ALBUTEROL MDI Last Admin: 04/07/20 08:44 Dose: 1 each Documented by: Ondansetron HCl (Ondansetron 4 Mg/2 Ml Vial) 4 mg IV Q8H PRN PRN PRN Reason: NAUSEA/VOMITING Sodium Chloride (0.9% Saline Lock 10 Ml Syringe) 10 - 40 ml IV UD PRN PRN Reason: SALINE FLUSH Last Admin: 04/08/20 11:39 Dose: 10 ml Documented by: Tolterodine Tartrate (Tolterodine Tartrate 2 Mg Cap.Sa) 2 mg PO DAILY [facility] Last Admin: 04/08/20 10:03 Dose: 2 mg Documented by: Medical Necessity - Tobacco Use Smoking Status: Never smoker Tobacco Use: Non-smoker Route of nutrition/ use of supplements: [] Nutritional Intake: [] IV Site: [] Hogan Catheter: [] - Assessment/Plan Antibiotics: [] Assessment/Plan: [] Active and Suspected Problems COVID-19 (Acute) Hypoxia (Acute) COVID-19 virus infection (Acute) COPD exacerbation (Acute) covid with hypoxia - cont dex and remdesivir. Plasma given 04/08. Feeling better. CT neg for PE, on lovenox proph. Recommended get tested and quarantine. Plan will be for home with O2 as needed, complete 10 days total of dex. Will follow
--- NOTE | 2020-04-08 15:53 | PN_ITS ---
Patient Problems: Active and Suspected Problems COVID-19 (Acute) Hypoxia (Acute) COVID-19 virus infection (Acute) COPD exacerbation (Acute) Subjective: Patient did okay overnight. Patient's glucose has been elevated, but appears to be tolerating Remdesivir well. No side effects reported from his perspective. Patient is not reporting any difficulty with urination. Patient continues to have a predominantly nonproductive cough. - Physical Exam Vitals/I&O's: Vital Signs Temp Pulse Resp BP Pulse Ox 36.8 C 71 20 H 114/65 92 04/08/20 09:55 04/08/20 09:55 04/08/20 09:55 04/08/20 09:55 04/08/20 10:06 Oxygen Flow Rate (L/min) 2 Oxygen Delivery Method Nasal Cannula Weight: 99.2 kg Body Mass Index (BMI) 37.3 Intake and Output for Last 24 Hours 04/06/20 04/07/20 04/08/20 23:59 23:59 23:59 Intake Total 1250 / 1250 910.50 / 910.50 Output Total 600 / 600 900 / 900 Balance 650 / 650 10.50 / 10.50 General: Alert, Oriented x3, Cooperative, - - Mild conversational dyspnea. Obese. HEENT: Atraumatic, PERRLA, EOMI, Normocephalic, - - No scleral icterus or injection noted Oral: Moist Mucosa, No Gingival or Mucosal Lesions/ Ulcerations Neck: Supple, No JVD, No Nodes, Trachea Midline Lungs: No rhonchi, No wheeze, Diminished, Rales, - - Right base Cardiovascular: Regular rate, Regular Rhythm, Normal S1, Normal S2, No murmurs, No rub noted, No Gallop Abdomen: Bowel Sounds Present, Soft, Non Tender, Non-Distended, Obese Extremities: No clubbing, No cyanosis, Edema - Bilateral lower extremities Skin: - - Venous stasis changes bilaterally Musculoskeletal: No Tenderness to Palpation of Joints or Extremities Lymphatic: No Cervical, Supraclavicular, or Inguinal Adenopathy Neurological: Cranial nerves II-XII grossly intact, Neuro grossly intact, Motor Exam 5/5 strength throughout Psych/Mental Status: Alert and oriented to time, place, person, mood and affect Microbiology Past 72 Hours 04/06/20 18:40 Mucosa - Nose Respiratory Panel (PCR) - Final Laboratory Results 04/07/20 16:18: POC Glucose 287 H 04/07/20 17:54: Hemoglobin A1c 7.0 H 04/07/20 22:43: POC Glucose 294 H 04/08/20 04:44: WBC 9.3, RBC 4.71, Hgb 12.5 L, Hct 40.9, MCV 86.8, MCH 26.5 L, MCHC 30.6 L, RDW Std Deviation 43.8, RDW Coeff of Kay 13.6, Plt Count 178, MPV 10.3 04/08/20 04:44: Sodium 141, Potassium 3.9, Chloride 103, Carbon Dioxide 32.0, Anion Gap 6, BUN 12, Creatinine 0.54 L, Estim Creat Clear Calc 57.56, Est GFR (MDRD) Af Amer 194, Est GFR (MDRD) Non-Af 160, BUN/Creatinine Ratio 22.3 H, Glucose 163 H, Calcium 7.9 L, Total Bilirubin 0.30, AST 39 H, ALT 27, Alkaline Phosphatase 76, Total Protein 6.1 L, Albumin 2.8 L, Globulin 3.3, Albumin/Globulin Ratio 0.8 L 04/08/20 06:14: POC Glucose 196 H 04/08/20 11:41: POC Glucose 258 H Current Medications Acetaminophen (Acetaminophen 325 Mg Tablet) 650 mg PO Q6H PRN PRN PRN Reason: Pain Score 1-10/Temp > 100.7 F Last Admin: 04/07/20 00:09 Dose: 650 mg Documented by: Albuterol Sulfate (Albuterol Sulfate 18 Gm Inhaler (200 Puffs)) 2 puff IH Q4HWA [facility] Last Admin: 04/08/20 10:04 Dose: 2 puff Documented by: Atorvastatin Calcium (Atorvastatin Calcium 10 Mg Tablet) 10 mg PO MoTh@2200 [facility] Last Admin: 04/07/20 22:57 Dose: 10 mg Documented by: Calamine/Phenol (Menthol/Lanolin/Calamine/Znox 113 Gm Tube) 1 applic TOPICAL BID [facility]; Protocol Last Admin: 04/08/20 11:35 Dose: 1 applicatio Documented by: Dexamethasone (Dexamethasone 4 Mg Tablet) 6 mg PO DAILY@0800 [facility] Last Admin: 04/08/20 10:02 Dose: 6 mg Documented by: Dextrose (Dextrose 50%-Water 25 Gm/50 Ml Disp.Syrin) 0 gm IV X1 PRN; Protocol PRN Reason: Hypoglycemia Enoxaparin Sodium (Enoxaparin 30 Mg/0.3 Ml Syringe) 30 mg SC BID [facility] Last Admin: 04/08/20 10:03 Dose: 30 mg Documented by: Glucagon (Glucagon 1 Mg/Ml Syringe) 1 mg IM .X1 PRN PRN Reason: Hypoglycemia Guaifenesin (Guaifenesin 1,200 Mg Tablet) 1,200 mg PO BID [facility] Last Admin: 04/08/20 10:03 Dose: 1,200 mg Documented by: Sodium Chloride () 250 mls @ 15 mls/hr IV .[id number] PRN PRN Reason: Saline Flush Last Infusion: 04/08/20 13:40 Dose: 15 mls/hr Documented by: Sodium Chloride () 250 mls @ 15 mls/hr IV .[id number] PRN PRN Reason: Additional IVPB Infusion Remdesivir 100 mg/ Sodium (Chloride) 250 mls @ 125 mls/hr IV DAILY [facility]; Protocol Stop: 04/11/20 11:59 Last Infusion: 04/08/20 13:40 Dose: Infused Documented by: Sodium Chloride () 500 mls @ 15 mls/hr IV PRN PRN PRN Reason: Blood Transfusion Last Infusion: 04/08/20 10:17 Dose: Infused Documented by: Sodium Chloride () 250 mls @ 15 mls/hr IV .[id number] PRN PRN Reason: Saline Flush Sodium Chloride () 250 mls @ 15 mls/hr IV .[id number] PRN PRN Reason: Additional IVPB Infusion Insulin Glargine (Insulin Glargine 100 Units/Ml Pen) 20 units SC DAILY [facility] Last Admin: 04/08/20 10:05 Dose: 20 units Documented by: Insulin Human Lispro (Insulin Lispro 100 Unit/Ml Insuln.Pen) 0 unit SC [facility]; Protocol Last Admin: 04/08/20 11:42 Dose: 4 units Documented by: Levothyroxine Sodium (Levothyroxine 25 Mcg Tablet) 25 mcg PO SuSa@1000 [facility] Levothyroxine Sodium (Levothyroxine 50 Mcg Tablet) 50 mcg PO MoTuWeThFr@1000 [facility] Last Admin: 10/30/20 11:34 Dose: 50 mcg Documented by: Melatonin (Melatonin 3 Mg Tablet) 3 mg PO QHS PRN PRN PRN Reason: INSOMNIA Miscellaneous Information (Inhaler, Assist Devices 1 Each Spacer) 1 each INHALATION PRN PRN PRN Reason: WITH ALBUTEROL MDI Last Admin: 04/07/20 08:44 Dose: 1 each Documented by: Ondansetron HCl (Ondansetron 4 Mg/2 Ml Vial) 4 mg IV Q8H PRN PRN PRN Reason: NAUSEA/VOMITING Sodium Chloride (0.9% Saline Lock 10 Ml Syringe) 10 - 40 ml IV UD PRN PRN Reason: SALINE FLUSH Last Admin: 04/08/20 11:39 Dose: 10 ml Documented by: Tolterodine Tartrate (Tolterodine Tartrate 2 Mg Cap.Sa) 2 mg PO DAILY [facility] Last Admin: 04/08/20 10:03 Dose: 2 mg Documented by: Medical Necessity - Tobacco Use Smoking Status: Never smoker Tobacco Use: Non-smoker Assessment/Plan All Active Problems COVID-19 (Acute) Hypoxia (Acute) COVID-19 virus infection (Acute) COPD exacerbation (Acute) RECOMMENDATIONS: 1. Steroids, anticoagulation, convalescent serum and remdesivir per ID 2. Wean oxygen as tolerated 3. Consider diuretic challenge in 24 hours if not improving 4. Likely okay to monitor off antibiotics from my perspective 5. Monitor blood sugars closely with sliding scale if indicated. Add Girma IMPRESSIONS: 1. Acute hypoxic respiratory insufficiency secondary to COVID-19 Chest x-ray was relatively unremarkable. CT of the chest did show some scattered groundglass opacities. Patient does not have significant emphysematous changes noted. Reasonable to use bronchodilators. Steroids, anticoagulation, convalescent serum and remdesivir per infectious disease. Patient does have a history of diastolic dysfunction, so a diuretic challenge would be reasonable, but defer to standard therapy for now. Symptomatic treatment for fever and Mucinex to help with pulmonary toileting will also be helpful. Exact timing of onset of symptoms is unclear, should patient may continue to decompensate despite aggressive therapy. Monitor for 24 to 48 hours 2. Obesity/advanced age/diabetes mellitus/history of poor wound healing Complicates care, management, recovery and prognosis. We will need to monitor patient closely for complications associated with steroid therapy. Sliding scale insulin has been ordered. Inpatient E&M: 69118 Subs Hosp L2
[2020-04-08 17:06] LABS: Bedside Glucose 263 mg/dL (70-110)
[2020-04-08] MEDS: MELATONIN 3 MG TABLET PO (21:58)
[2020-04-09 01:00] LABS: Bedside Glucose 288 mg/dL (70-110)
[2020-04-09 04:38] VITALS: BP 120/64; PULSE 66; RESP 18; TEMP 36.6; O2SAT 93
[2020-04-09] MEDS: Insulin Lispro 100 UNIT/ML INSULN.PEN SC ×4 (06:12→21:24)
[2020-04-09 07:33] LABS: Hematocrit 44.8 % (40-54); Hemoglobin 13.6 g/dL (13.0-16.5); Mean Corp Hgb Conc 30.4 g/dL (32-36); Mean Corpuscular Hgb 26.6 pg (27.0-32.0); Mean Corpuscular Volume 87.5 fL (80-94); Mean Platelet Vol. 10.9 fl (6.2-12.0); Platelet Count 239 K/mm3 (150-450); RBC Distribution Width CV 13.9 % (11.6-14.6); RBC Distribution Width SD 44.9 fl (35.1-43.9); Red Blood Count 5.12 M/mm3 (4.6-6.2); White Blood Count 12.5 K/mm3 (4.4-11.0)
[2020-04-09 07:48] LABS: ALB/GLOB Ratio 0.6 RATIO (0.9-2.4); AST(SGOT) 30 U/L (15-37); Alanine Aminotransfer ALT/SGPT 26 U/L (16-61); Albumin, Serum 2.7 g/dL (3.2-5.0); Alkaline Phosphatase 82 U/L (45-117); Anion Gap 4 (5-15); BUN 16 mg/dL (7-18); BUN/Creat Ratio 26.8 RATIO (10-20); Calcium,Total 8.8 mg/dL (8.5-10.1); Chloride 111 mmol/L (98-107); EST Glomerular Filtration Rate 142 mL/min (>60); Est Glom Filt Rate - Afr Amer 172 mL/min (>60); Estimated Creatinine Clearance 57.56 ml/min; Globulin 4.2 g/dL (2.2-4.2); Glucose 174 mg/dL (74-106); Potassium 4.4 mmol/L (3.5-5.1); Protein, Total 6.9 g/dL (6.4-8.2); Sodium Level 146 mmol/L (136-145)
[2020-04-09 07:51] LABS: Bedside Glucose 195 mg/dL (70-110)
[2020-04-09] MEDS: Tolterodine Tartrate 2 MG CAP.SA PO (09:04)
[2020-04-09] MEDS: dexAMETHasone 4 MG Tablet 6 MG PO (09:04)
[2020-04-09] MEDS: Levothyroxine 25 MCG TABLET PO (09:04)
[2020-04-09] MEDS: guaiFENesin 1,200 MG Tablet 1200 MG PO ×2 (09:04→21:21)
[2020-04-09] MEDS: Enoxaparin 30 MG/0.3 ML Syringe SC ×2 (09:05→21:26)
[2020-04-09] MEDS: Menthol/Lanolin/Calamine/Znox 113 GM Tube 1 APPLIC TOPICAL ×2 (09:08→21:27)
[2020-04-09 09:09] VITALS: BP 127/63; PULSE 68; RESP 16; TEMP 37; O2SAT 94
--- NOTE | 2020-04-09 10:54 | PN_ITS ---
Patient Problems: Active and Suspected Problems COVID-19 (Acute) Hypoxia (Acute) COVID-19 virus infection (Acute) COPD exacerbation (Acute) Subjective: Patient did well overnight. No acute issues were reported. Patient did receive his convalescent serum overnight and tolerated this well. Patient feels that he is subjectively improved with his shortness of breath compared to yesterday. Oxygenation is slightly improved - Physical Exam Vitals/I&O's: Vital Signs Temp Pulse Resp BP Pulse Ox 37.0 C 68 16 127/63 H 94 04/09/20 09:09 04/09/20 09:09 04/09/20 09:09 04/09/20 09:09 04/09/20 09:09 Oxygen Flow Rate (L/min) 1 Oxygen Delivery Method Nasal Cannula Weight: 99.2 kg Body Mass Index (BMI) 37.3 Intake and Output for Last 24 Hours 04/07/20 04/08/20 04/09/20 23:59 23:59 23:59 Intake Total 1250 / 1250 1349.25 / 1349.25 200 / 200 Output Total 600 / 600 2100 / 2100 Balance 650 / 650 -750.75 / -750.75 200 / 200 General: Alert, Oriented x3, Cooperative, No apparent distress, Well developed, Well nourished, - - Appears older than stated age HEENT: Atraumatic, PERRLA, EOMI, Normocephalic, - - Slight scleral injection without icterus Oral: Moist Mucosa, No Gingival or Mucosal Lesions/ Ulcerations Neck: Supple, No JVD, No Nodes, Trachea Midline Lungs: No rhonchi, No wheeze, No rales, Diminished, - - Symmetric expansion. No dullness to percussion. Cardiovascular: Regular rate, Regular Rhythm, Normal S1, Normal S2, No murmurs, No rub noted, No Gallop Abdomen: Bowel Sounds Present, Soft, Non Tender, Non-Distended, Obese Extremities: No clubbing, No cyanosis, Edema Skin: - - No change compared to previous Musculoskeletal: No Tenderness to Palpation of Joints or Extremities Lymphatic: No Cervical, Supraclavicular, or Inguinal Adenopathy Neurological: Cranial nerves II-XII grossly intact, Neuro grossly intact, Motor Exam 5/5 strength throughout Psych/Mental Status: Alert and oriented to time, place, person, mood and affect Microbiology Past 72 Hours 04/06/20 18:02 Blood Culture (Wb) - Anticubital Right Blood Culture - Preliminary No growth in 48 hours. 04/06/20 17:57 Blood Culture (Wb) - Right Forearm Blood Culture - Preliminary No growth in 48 hours. 04/06/20 18:40 Mucosa - Nose Respiratory Panel (PCR) - Final Laboratory Results 04/08/20 11:41: POC Glucose 258 H 04/08/20 16:14: POC Glucose 263 H 04/08/20 22:12: POC Glucose 288 H 04/09/20 06:11: POC Glucose 195 H 04/09/20 06:23: WBC 12.5 H, RBC 5.12, Hgb 13.6, Hct 44.8, MCV 87.5, MCH 26.6 L, MCHC 30.4 L, RDW Std Deviation 44.9 H, RDW Coeff of Kay 13.9, Plt Count 239, MPV 10.9 04/09/20 06:23: Sodium 146 H, Potassium 4.4, Chloride 111 H, Carbon Dioxide 31.0, Anion Gap 4 L, BUN 16, Creatinine 0.60 L, Estim Creat Clear Calc 57.56, Est GFR (MDRD) Af Amer 172, Est GFR (MDRD) Non-Af 142, BUN/Creatinine Ratio 26.8 H, Glucose 174 H, Calcium 8.8, Total Bilirubin 0.20, AST 30, ALT 26, Alkaline Phosphatase 82, Total Protein 6.9, Albumin 2.7 L, Globulin 4.2, Albumin/Globulin Ratio 0.6 L Current Medications Acetaminophen (Acetaminophen 325 Mg Tablet) 650 mg PO Q6H PRN PRN PRN Reason: Pain Score 1-10/Temp > 100.7 F Last Admin: 04/07/20 00:09 Dose: 650 mg Documented by: Albuterol Sulfate (Albuterol Sulfate 18 Gm Inhaler (200 Puffs)) 2 puff IH Q4HWA [facility] Last Admin: 04/09/20 09:05 Dose: 2 puff Documented by: Atorvastatin Calcium (Atorvastatin Calcium 10 Mg Tablet) 10 mg PO MoTh@2200 [facility] Last Admin: 04/07/20 22:57 Dose: 10 mg Documented by: Calamine/Phenol (Menthol/Lanolin/Calamine/Znox 113 Gm Tube) 1 applic TOPICAL BID [facility]; Protocol Last Admin: 04/09/20 09:08 Dose: 1 applicatio Documented by: Dexamethasone (Dexamethasone 4 Mg Tablet) 6 mg PO DAILY@0800 [facility] Last Admin: 04/09/20 09:04 Dose: 6 mg Documented by: Dextrose (Dextrose 50%-Water 25 Gm/50 Ml Disp.Syrin) 0 gm IV X1 PRN; Protocol PRN Reason: Hypoglycemia Enoxaparin Sodium (Enoxaparin 30 Mg/0.3 Ml Syringe) 30 mg SC BID [facility] Last Admin: 04/09/20 09:05 Dose: 30 mg Documented by: Glucagon (Glucagon 1 Mg/Ml Syringe) 1 mg IM .X1 PRN PRN Reason: Hypoglycemia Guaifenesin (Guaifenesin 1,200 Mg Tablet) 1,200 mg PO BID [facility] Last Admin: 04/09/20 09:04 Dose: 1,200 mg Documented by: Sodium Chloride () 250 mls @ 15 mls/hr IV .[id number] PRN PRN Reason: Saline Flush Last Infusion: 04/08/20 16:15 Dose: 0 mls/hr Documented by: Sodium Chloride () 250 mls @ 15 mls/hr IV .[id number] PRN PRN Reason: Additional IVPB Infusion Remdesivir 100 mg/ Sodium (Chloride) 250 mls @ 125 mls/hr IV DAILY [facility]; Protocol Stop: 04/11/20 11:59 Last Admin: 04/09/20 10:30 Dose: 125 mls/hr Documented by: Sodium Chloride () 500 mls @ 15 mls/hr IV PRN PRN PRN Reason: Blood Transfusion Last Infusion: 04/08/20 10:17 Dose: Infused Documented by: Sodium Chloride () 250 mls @ 15 mls/hr IV .[id number] PRN PRN Reason: Saline Flush Sodium Chloride () 250 mls @ 15 mls/hr IV .[id number] PRN PRN Reason: Additional IVPB Infusion Insulin Glargine (Insulin Glargine 100 Units/Ml Pen) 25 units SC 1100 [facility] Insulin Human Lispro (Insulin Lispro 100 Unit/Ml Insuln.Pen) 0 unit SC ACHS [facility]; Protocol Last Admin: 04/09/20 06:12 Dose: 2 units Documented by: Levothyroxine Sodium (Levothyroxine 25 Mcg Tablet) 25 mcg PO SuSa@1000 [facility] Last Admin: 04/09/20 09:04 Dose: 25 mcg Documented by: Levothyroxine Sodium (Levothyroxine 50 Mcg Tablet) 50 mcg PO MoTuWeThFr@1000 [facility] Last Admin: 04/08/20 11:34 Dose: 50 mcg Documented by: Melatonin (Melatonin 3 Mg Tablet) 3 mg PO QHS PRN PRN PRN Reason: INSOMNIA Last Admin: 04/08/20 21:58 Dose: 3 mg Documented by: Miscellaneous Information (Inhaler, Assist Devices 1 Each Spacer) 1 each INHALATION PRN PRN PRN Reason: WITH ALBUTEROL MDI Last Admin: 04/07/20 08:44 Dose: 1 each Documented by: Ondansetron HCl (Ondansetron 4 Mg/2 Ml Vial) 4 mg IV Q8H PRN PRN PRN Reason: NAUSEA/VOMITING Sodium Chloride (0.9% Saline Lock 10 Ml Syringe) 10 - 40 ml IV UD PRN PRN Reason: SALINE FLUSH Last Admin: 04/08/20 11:39 Dose: 10 ml Documented by: Tolterodine Tartrate (Tolterodine Tartrate 2 Mg Cap.Sa) 2 mg PO DAILY [facility] Last Admin: 04/09/20 09:04 Dose: 2 mg Documented by: Medical Necessity - Tobacco Use Smoking Status: Never smoker Tobacco Use: Non-smoker Assessment/Plan All Active Problems COVID-19 (Acute) Hypoxia (Acute) COVID-19 virus infection (Acute) COPD exacerbation (Acute) RECOMMENDATIONS: 1. Steroids, anticoagulation, convalescent serum and remdesivir per ID 2. Wean oxygen as tolerated 3. We will dose with a single dose of diuretics 4. Likely okay to monitor off antibiotics from my perspective 5. Monitor blood sugars closely with sliding scale if indicated. Add Lantus 6. Possibly discharge IMPRESSIONS: 1. Acute hypoxic respiratory insufficiency secondary to COVID-19 Chest x-ray was relatively unremarkable. CT of the chest did show some scattered groundglass opacities. Patient does not have significant emphysema tous changes noted. Reasonable to use bronchodilators. Steroids, anticoagulation, convalescent serum and remdesivir per infectious disease. Patient does have a history of diastolic dysfunction, so will proceed with a diuretic challenge today. Symptomatic treatment for fever and Mucinex to help with pulmonary toileting will also be helpful. Exact timing of onset of symptoms is unclear, should patient may continue to decompensate despite aggressive therapy. Monitor for 24 to 48 hours and then possibly discharge if able to come off of supplemental oxygen. Clinical suspicion for increased l eukocytosis secondary to steroids. Agree with increase Lantus. 2. Obesity/advanced age/diabetes mellitus/history of poor wound healing Complicates care, management, recovery and prognosis. We will need to monitor patient closely for complications associated with steroid therapy. Sliding scale insulin has been ordered. Inpatient E&M: 44119 Subs Hosp L2
[2020-04-09] MEDS: Furosemide 40 MG/4 ML Vial IV (12:14)
[2020-04-09 12:21] LABS: Bedside Glucose 305 mg/dL (70-110)
[2020-04-09 12:27] VITALS: BP 146/85; PULSE 67; RESP 16; TEMP 36.8; O2SAT 94
--- NOTE | 2020-04-09 13:48 | PCM.PN.HOSP ---
Patient Problems: Active and Suspected Problems COVID-19 (Acute) Hypoxia (Acute) COVID-19 virus infection (Acute) COPD exacerbation (Acute) Vitals/I&O's: Vital Signs Temp Pulse Resp BP Pulse Ox 98.3 F 67 16 146/85 H 94 04/09/20 12:27 04/09/20 12:27 04/09/20 12:27 04/09/20 12:27 04/09/20 12:27 Oxygen Flow Rate (L/min) 1 Oxygen Delivery Method Nasal Cannula Weight: 99.2 kg Body Mass Index (BMI) 37.3 Intake and Output for Last 24 Hours 04/07/20 04/08/20 04/09/20 23:59 23:59 23:59 Intake Total 1250 / 1250 1349.25 / 1349.25 1250 / 1250 Output Total 600 / 600 2100 / 2100 1750 / 1750 Balance 650 / 650 -750.75 / -750.75 -500 / -500 Microbiology Past 72 Hours 04/06/20 18:02 Blood Culture (Wb) - Anticubital Right Blood Culture - Preliminary No growth in 48 hours. 04/06/20 17:57 Blood Culture (Wb) - Right Forearm Blood Culture - Preliminary No growth in 48 hours. 04/06/20 18:40 Mucosa - Nose Respiratory Panel (PCR) - Final Laboratory Results 04/08/20 16:14: POC Glucose 263 H 04/08/20 22:12: POC Glucose 288 H 04/09/20 06:11: POC Glucose 195 H 04/09/20 06:23: WBC 12.5 H, RBC 5.12, Hgb 13.6, Hct 44.8, MCV 87.5, MCH 26.6 L, MCHC 30.4 L, RDW Std Deviation 44.9 H, RDW Coeff of Kay 13.9, Plt Count 239, MPV 10.9 04/09/20 06:23: Sodium 146 H, Potassium 4.4, Chloride 111 H, Carbon Dioxide 31.0, Anion Gap 4 L, BUN 16, Creatinine 0.60 L, Estim Creat Clear Calc 57.56, Est GFR (MDRD) Af Amer 172, Est GFR (MDRD) Non-Af 142, BUN/Creatinine Ratio 26.8 H, Glucose 174 H, Calcium 8.8, Total Bilirubin 0.20, AST 30, ALT 26, Alkaline Phosphatase 82, Total Protein 6.9, Albumin 2.7 L, Globulin 4.2, Albumin/Globulin Ratio 0.6 L 04/09/20 11:15: POC Glucose 305 H Current Medications Acetaminophen (Acetaminophen 325 Mg Tablet) 650 mg PO Q6H PRN PRN PRN Reason: Pain Score 1-10/Temp > 100.7 F Last Admin: 04/07/20 00:09 Dose: 650 mg Documented by: Albuterol Sulfate (Albuterol Sulfate 18 Gm Inhaler (200 Puffs)) 2 puff IH Q4HWA [facility] Last Admin: 04/09/20 09:05 Dose: 2 puff Documented by: Atorvastatin Calcium (Atorvastatin Calcium 10 Mg Tablet) 10 mg PO MoTh@2200 [facility] Last Admin: 04/07/20 22:57 Dose: 10 mg Documented by: Calamine/Phenol (Menthol/Lanolin/Calamine/Znox 113 Gm Tube) 1 applic TOPICAL BID [facility]; Protocol Last Admin: 04/09/20 09:08 Dose: 1 applicatio Documented by: Dexamethasone (Dexamethasone 4 Mg Tablet) 6 mg PO DAILY@0800 [facility] Last Admin: 04/09/20 09:04 Dose: 6 mg Documented by: Dextrose (Dextrose 50%-Water 25 Gm/50 Ml Disp.Syrin) 0 gm IV X1 PRN; Protocol PRN Reason: Hypoglycemia Enoxaparin Sodium (Enoxaparin 30 Mg/0.3 Ml Syringe) 30 mg SC BID [facility] Last Admin: 04/09/20 09:05 Dose: 30 mg Documented by: Glucagon (Glucagon 1 Mg/Ml Syringe) 1 mg IM .X1 PRN PRN Reason: Hypoglycemia Guaifenesin (Guaifenesin 1,200 Mg Tablet) 1,200 mg PO BID [facility] Last Admin: 04/09/20 09:04 Dose: 1,200 mg Documented by: Sodium Chloride () 250 mls @ 15 mls/hr IV .[id number] PRN PRN Reason: Saline Flush Last Infusion: 04/09/20 13:07 Dose: 15 mls/hr Documented by: Sodium Chloride () 250 mls @ 15 mls/hr IV .[id number] PRN PRN Reason: Additional IVPB Infusion Remdesivir 100 mg/ Sodium (Chloride) 250 mls @ 125 mls/hr IV DAILY [facility]; Protocol Stop: 04/11/20 11:59 Last Infusion: 04/09/20 13:06 Dose: Infused Documented by: Sodium Chloride () 500 mls @ 15 mls/hr IV PRN PRN PRN Reason: Blood Transfusion Last Infusion: 04/08/20 10:17 Dose: Infused Documented by: Sodium Chloride () 250 mls @ 15 mls/hr IV .[id number] PRN PRN Reason: Saline Flush Sodium Chloride () 250 mls @ 15 mls/hr IV .[id number] PRN PRN Reason: Additional IVPB Infusion Insulin Glargine (Insulin Glargine 100 Units/Ml Pen) 25 units SC 1100 [facility] Last Admin: 04/09/20 11:20 Dose: 25 u Documented by: Insulin Human Lispro (Insulin Lispro 100 Unit/Ml Insuln.Pen) 0 unit SC ACHS [facility]; Protocol Last Admin: 04/09/20 11:19 Dose: 6 units Documented by: Levothyroxine Sodium (Levothyroxine 25 Mcg Tablet) 25 mcg PO SuSa@1000 [facility] Last Admin: 04/09/20 09:04 Dose: 25 mcg Documented by: Levothyroxine Sodium (Levothyroxine 50 Mcg Tablet) 50 mcg PO MoTuWeThFr@1000 [facility] Last Admin: 04/08/20 11:34 Dose: 50 mcg Documented by: Melatonin (Melatonin 3 Mg Tablet) 3 mg PO QHS PRN PRN PRN Reason: INSOMNIA Last Admin: 04/08/20 21:58 Dose: 3 mg Documented by: Miscellaneous Information (Inhaler, Assist Devices 1 Each Spacer) 1 each INHALATION PRN PRN PRN Reason: WITH ALBUTEROL MDI Last Admin: 04/07/20 08:44 Dose: 1 each Documented by: Ondansetron HCl (Ondansetron 4 Mg/2 Ml Vial) 4 mg IV Q8H PRN PRN PRN Reason: NAUSEA/VOMITING Sodium Chloride (0.9% Saline Lock 10 Ml Syringe) 10 - 40 ml IV UD PRN PRN Reason: SALINE FLUSH Last Admin: 04/08/20 11:39 Dose: 10 ml Documented by: Tolterodine Tartrate (Tolterodine Tartrate 2 Mg Cap.Sa) 2 mg PO DAILY [facility] Last Admin: 04/09/20 09:04 Dose: 2 mg Documented by: STROKE Vital Signs/Narrative: Vital Signs Temp Pulse Resp BP Pulse Ox 04/09/20 12:27 98.3 F 67 16 146/85 H 94 Medical Necessity - Tobacco Use Smoking Status: Never smoker Tobacco Use: Non-smoker Assessment/Plan All Active Problems COVID-19 (Acute) Hypoxia (Acute) COVID-19 virus infection (Acute) COPD exacerbation (Acute) 1. Acute hypoxic respiratory insufficiency secondary to acute COVID-19 infection/pneumonia, Currently on 1-2 L of oxygen Admitting chest x-ray showed no acute cardiopulmonary process. CTA of the chest showed left lower lobe infiltrate, bilateral upper lobe groundglass opacities, multifocal on the left No PE seen. Continue with breathing treatments, po steroids, encourage use of incentive spirometer. Wean off oxygen for SPO2 more than 94% 2. Acute COVID-19 infection/pneumonia, with hypoxia ID and pulmonology following, continue on oral Decadron and redemsivir Convalescent plasma planned 3. Hypothyroidism, continue on Synthroid 4. Hyperlipidemia, continue on statin 5. Type II DM, HgbA1c 7.0, Metformin on hold Patient's renal function has remained stable Continue on Metformin and increased dose of Lantus 25 units Continue with blood glucose checks and ISS 6. Hypernatremia secondary to dehydration, Na 146 Continue to encourage po water intake Repeat blood work in am 7. DVT prophylaxis on Lovenox twice daily Inpatient E&M: 74486 Subs Hosp L2
[2020-04-09 16:00] VITALS: BP 117/67; PULSE 59; RESP 16; TEMP 36.7; O2SAT 94
[2020-04-09 16:11] LABS: Bedside Glucose 366 mg/dL (70-110)
[2020-04-09] MEDS: metFORMIN (XR) 500 MG Tablet PO (17:11)
[2020-04-09 21:19] VITALS: BP 121/68; PULSE 63; RESP 18; TEMP 36.8; O2SAT 95
[2020-04-10] VITALS (8 sets, daily range): BP systolic 125–162; BP diastolic 71–87; PULSE 64–76; RESP 16–18; TEMP 36.4–36.8; O2SAT 90–94
[2020-04-10 00:46] LABS: Bedside Glucose 302 mg/dL (70-110)
[2020-04-10] MEDS: Insulin Lispro 100 UNIT/ML INSULN.PEN SC ×4 (06:36→21:09)
[2020-04-10 07:01] LABS: Bedside Glucose 161 mg/dL (70-110)
--- NOTE | 2020-04-10 07:05 | PN_ITS ---
Patient Problems: Active and Suspected Problems COVID-19 (Acute) Hypoxia (Acute) COVID-19 virus infection (Acute) COPD exacerbation (Acute) Reason for Visit: Follow-up on hypoxia/Acute COVID-19 infection/pneumonia Subjective: Patient was seen and examined. Patient stated that he feels much improved. De nies any worsening shortness of breath. Remains on 1-2 L of oxygen. Discharge planning for discharge to [facility] facility pending. Objective: Physical exam: General: Alert, Oriented x3, Cooperative, No apparent distress, - - 2 L of oxygen HEENT: Atraumatic, PERRLA, EOMI, Normocephalic Oral: Moist Mucosa Neck: Supple Lungs: Diminished Cardiovascular: Regular rate, Regular Rhythm, Normal S1, Normal S2 Abdomen: Bowel Sounds Present, Soft, Non Tender, Non-Distended, No Hepato- splenomegaly Extremities: No edema, hyperpigmentation of right lower leg Skin: No rashes Musculoskeletal: No Tenderness to Palpation of Joints or Extremities Lymphatic: No Cervical, Supraclavicular, or Inguinal Adenopathy Neurological: Cranial nerves II-XII grossly intact, Neuro grossly intact Psych/Mental Status: Normal Affect, Appropriate Vitals/I&O's: Vital Signs Temp Pulse Resp BP Pulse Ox 98.3 F 64 18 125/71 H 94 04/10/20 02:37 04/10/20 02:37 04/10/20 02:37 04/10/20 02:37 04/10/20 02:37 Oxygen Flow Rate (L/min) 1 Oxygen Delivery Method Nasal Cannula Weight: 99.2 kg Body Mass Index (BMI) 37.3 Intake and Output for Last 24 Hours 04/08/20 04/09/20 04/10/20 23:59 23:59 22:59 Intake Total 1349.25 / 1349.25 2514.25 / 2514.25 Output Total 2100 / 2100 3750 / 3750 1250 / 1250 Balance -750.75 / -750.75 -1235.75 / -1235.75 -1250 / -1250 Microbiology Past 72 Hours 04/06/20 18:02 Blood Culture (Wb) - Anticubital Right Blood Culture - Preliminary No growth in 48 hours. 04/06/20 17:57 Blood Culture (Wb) - Right Forearm Blood Culture - Preliminary No growth in 48 hours. Laboratory Results 04/09/20 11:15: POC Glucose 305 H 04/09/20 15:56: POC Glucose 366 H 04/09/20 21:16: POC Glucose 302 H 04/10/20 06:34: POC Glucose 161 H Current Medications Acetaminophen (Acetaminophen 325 Mg Tablet) 650 mg PO Q6H PRN PRN PRN Reason: Pain Score 1-10/Temp > 100.7 F Last Admin: 04/07/20 00:09 Dose: 650 mg Documented by: Albuterol Sulfate (Albuterol Sulfate 18 Gm Inhaler (200 Puffs)) 2 puff IH Q4HWA [facility] Last Admin: 04/10/20 06:36 Dose: 2 puff Documented by: Atorvastatin Calcium (Atorvastatin Calcium 10 Mg Tablet) 10 mg PO MoTh@2200 [facility] Last Admin: 04/07/20 22:57 Dose: 10 mg Documented by: Calamine/Phenol (Menthol/Lanolin/Calamine/Znox 113 Gm Tube) 1 applic TOPICAL BID [facility]; Protocol Last Admin: 04/09/20 21:27 Dose: 1 applicatio Documented by: Dexamethasone (Dexamethasone 4 Mg Tablet) 6 mg PO DAILY@0800 [facility] Last Admin: 04/09/20 09:04 Dose: 6 mg Documented by: Dextrose (Dextrose 50%-Water 25 Gm/50 Ml Disp.Syrin) 0 gm IV X1 PRN; Protocol PRN Reason: Hypoglycemia Enoxaparin Sodium (Enoxaparin 30 Mg/0.3 Ml Syringe) 30 mg SC BID [facility] Last Admin: 04/09/20 21:26 Dose: 30 mg Documented by: Glucagon (Glucagon 1 Mg/Ml Syringe) 1 mg IM .X1 PRN PRN Reason: Hypoglycemia Guaifenesin (Guaifenesin 1,200 Mg Tablet) 1,200 mg PO BID [facility] Last Admin: 04/09/20 21:21 Dose: 1,200 mg Documented by: Sodium Chloride () 250 mls @ 15 mls/hr IV .[id number] PRN PRN Reason: Saline Flush Last Infusion: 04/09/20 14:04 Dose: 0 mls/hr Documented by: Sodium Chloride () 250 mls @ 15 mls/hr IV .[id number] PRN PRN Reason: Additional IVPB Infusion Remdesivir 100 mg/ Sodium (Chloride) 250 mls @ 125 mls/hr IV DAILY [facility]; Protocol Stop: 04/11/20 11:59 Last Infusion: 04/09/20 13:06 Dose: Infused Documented by: Sodium Chloride () 500 mls @ 15 mls/hr IV PRN PRN PRN Reason: Blood Transfusion Last Infusion: 04/08/20 10:17 Dose: Infused Documented by: Sodium Chloride () 250 mls @ 15 mls/hr IV .[id number] PRN PRN Reason: Saline Flush Sodium Chloride () 250 mls @ 15 mls/hr IV .[id number] PRN PRN Reason: Additional IVPB Infusion Insulin Glargine (Insulin Glargine 100 Units/Ml Pen) 25 units SC 1100 [facility] Last Admin: 04/09/20 11:20 Dose: 25 u Documented by: Insulin Human Lispro (Insulin Lispro 100 Unit/Ml Insuln.Pen) 0 unit SC ACHS [facility]; Protocol Last Admin: 04/10/20 06:36 Dose: 2 units Documented by: Levothyroxine Sodium (Levothyroxine 25 Mcg Tablet) 25 mcg PO SuSa@1000 [facility] Last Admin: 04/09/20 09:04 Dose: 25 mcg Documented by: Levothyroxine Sodium (Levothyroxine 50 Mcg Tablet) 50 mcg PO MoTuWeThFr@1000 [facility] Last Admin: 04/08/20 11:34 Dose: 50 mcg Documented by: Melatonin (Melatonin 3 Mg Tablet) 3 mg PO QHS PRN PRN PRN Reason: INSOMNIA Last Admin: 04/08/20 21:58 Dose: 3 mg Documented by: Metformin HCl (Metformin (Xr) 500 Mg Tablet) 500 mg PO BIDCM [facility] Last Admin: 04/09/20 17:11 Dose: 500 mg Documented by: Miscellaneous Information (Inhaler, Assist Devices 1 Each Spacer) 1 each INHALATION PRN PRN PRN Reason: WITH ALBUTEROL MDI Last Admin: 04/07/20 08:44 Dose: 1 each Documented by: Ondansetron HCl (Ondansetron 4 Mg/2 Ml Vial) 4 mg IV Q8H PRN PRN PRN Reason: NAUSEA/VOMITING Sodium Chloride (0.9% Saline Lock 10 Ml Syringe) 10 - 40 ml IV UD PRN PRN Reason: SALINE FLUSH Last Admin: 04/08/20 11:39 Dose: 10 ml Documented by: Tolterodine Tartrate (Tolterodine Tartrate 2 Mg Cap.Sa) 2 mg PO DAILY [facility] Last Admin: 04/09/20 09:04 Dose: 2 mg Documented by: Medical Necessity - Tobacco Use Smoking Status: Never smoker Tobacco Use: Non-smoker Assessment/Plan All Active Problems COVID-19 (Acute) Hypoxia (Acute) COVID-19 virus infection (Acute) COPD exacerbation (Acute) 1. Acute hypoxic respiratory insufficiency secondary to acute COVID-19 infection/pneumonia, Currently on 1-2 L of oxygen. Admitting chest x-ray showed no acute cardiopulmonary process. CTA of the chest showed left lower lobe infiltrate, bilateral upper lobe groundg lass opacities, multifocal on the left No PE seen. Continue with breathing treatments, po steroids, encourage use of incentive spirometer. Wean off oxygen for SPO2 more than 94% 2. Acute COVID-19 infection/pneumonia, with hypoxia ID and pulmonology following, continue on oral Decadron and redemsivir Status post convalescent plasma on 04/08/20 3. Hypothyroidism, continue on Synthroid 4. Hyperlipidemia, continue on statin 5. Type II DM, HgbA1c 7.0, Metformin on hold Patient's renal function has remained stable Continue on Metformin and increased dose of Lantus 30 units Continue with blood glucose checks and ISS 6. Hypernatremia secondary to dehydration, Na 146 Continue to encourage po water intake Repeat blood work in am 7. DVT prophylaxis on Lovenox twice daily Inpatient E&M: [id number] Subs Hosp L2
[2020-04-10 07:32] LABS: Hematocrit 47.5 % (40-54); Hemoglobin 14.5 g/dL (13.0-16.5); Mean Corp Hgb Conc 30.5 g/dL (32-36); Mean Corpuscular Hgb 26.5 pg (27.0-32.0); Mean Corpuscular Volume 86.8 fL (80-94); Mean Platelet Vol. 10.5 fl (6.2-12.0); Platelet Count 251 K/mm3 (150-450); RBC Distribution Width CV 13.7 % (11.6-14.6); RBC Distribution Width SD 44.2 fl (35.1-43.9); Red Blood Count 5.47 M/mm3 (4.6-6.2)
[2020-04-10] MEDS: Levothyroxine 25 MCG TABLET PO (07:40)
[2020-04-10] MEDS: Tolterodine Tartrate 2 MG CAP.SA PO ×2 (07:40)
[2020-04-10] MEDS: guaiFENesin 1,200 MG Tablet 1200 MG PO ×2 (07:40→20:54)
[2020-04-10] MEDS: metFORMIN (XR) 500 MG Tablet PO ×2 (07:42→17:31)
[2020-04-10] MEDS: dexAMETHasone 4 MG Tablet 6 MG PO (07:43)
[2020-04-10] MEDS: Menthol/Lanolin/Calamine/Znox 113 GM Tube 1 APPLIC TOPICAL ×2 (07:48→20:55)
[2020-04-10] MEDS: Enoxaparin 30 MG/0.3 ML Syringe SC ×2 (07:48→20:54)
[2020-04-10 07:53] LABS: ALB/GLOB Ratio 0.6 RATIO (0.9-2.4); AST(SGOT) 30 U/L (15-37); Alanine Aminotransfer ALT/SGPT 41 U/L (16-61); Albumin, Serum 2.8 g/dL (3.2-5.0); Alkaline Phosphatase 89 U/L (45-117); Anion Gap 5 (5-15); BUN 16 mg/dL (7-18); BUN/Creat Ratio 29.6 RATIO (10-20); Calcium,Total 8.9 mg/dL (8.5-10.1); Chloride 103 mmol/L (98-107); Creatinine, Serum 0.54 mg/dL (0.70-1.30); EST Glomerular Filtration Rate 159 mL/min (>60); Est Glom Filt Rate - Afr Amer 193 mL/min (>60); Estimated Creatinine Clearance 57.56 ml/min; Globulin 4.4 g/dL (2.2-4.2); Glucose 153 mg/dL (74-106); Potassium 3.9 mmol/L (3.5-5.1); Protein, Total 7.2 g/dL (6.4-8.2); Sodium Level 142 mmol/L (136-145)
--- NOTE | 2020-04-10 10:01 | PN_ITS ---
Patient Problems: Active and Suspected Problems COVID-19 (Acute) Hypoxia (Acute) COVID-19 virus infection (Acute) COPD exacerbation (Acute) Subjective: Patient did well overnight. Patient overall feels subjectively unchanged compared to previous. Patient has been maintained on low-dose nasal cannula. Patient with good appetite and denies any chest pain. - Physical Exam Vitals/I&O's: Vital Signs Temp Pulse Resp BP Pulse Ox 36.8 C 65 16 148/77 H 93 04/10/20 07:51 04/10/20 07:51 04/10/20 07:51 04/10/20 07:51 04/10/20 07:58 Oxygen Flow Rate (L/min) 1 Oxygen Delivery Method Nasal Cannula Weight: 99.2 kg Body Mass Index (BMI) 37.3 Intake and Output for Last 24 Hours 04/08/20 04/09/20 04/10/20 23:59 23:59 22:59 Intake Total 1349.25 / 1349.25 2514.25 / 2514.25 Output Total 2100 / 2100 3750 / 3750 1250 / 1250 Balance -750.75 / -750.75 -1235.75 / -1235.75 -1250 / -1250 General: Alert, Oriented x3, Cooperative, No apparent distress, - - Obese. No conversational dyspnea. HEENT: Atraumatic, PERRLA, EOMI, Normocephalic, - - No scleral icterus or injection noted Oral: Moist Mucosa, No Gingival or Mucosal Lesions/ Ulcerations Neck: Supple, No JVD, No Nodes, Trachea Midline Lungs: No rhonchi, No wheeze, No rales, Diminished, - - Symmetric expansion. No dullness to percussion. Cardiovascular: Regular rate, Regular Rhythm, Normal S1, Normal S2, No murmurs, No rub noted, No Gallop Abdomen: Bowel Sounds Present, Soft, Non Tender, Non-Distended, Obese Extremities: No clubbing, No cyanosis, Edema - Trace lower extremity Skin: - - No change from previous Musculoskeletal: No Tenderness to Palpation of Joints or Extremities Lymphatic: No Cervical, Supraclavicular, or Inguinal Adenopathy Neurological: Cranial nerves II-XII grossly intact, Neuro grossly intact, Motor Exam 5/5 strength throughout Psych/Mental Status: Alert and oriented to time, place, person, mood and affect Microbiology Past 72 Hours 04/06/20 18:02 Blood Culture (Wb) - Anticubital Right Blood Culture - Preliminary No growth in 48 hours. 04/06/20 17:57 Blood Culture (Wb) - Right Forearm Blood Culture - Preliminary No growth in 48 hours. Laboratory Results 04/09/20 11:15: POC Glucose 305 H 04/09/20 15:56: POC Glucose 366 H 04/09/20 21:16: POC Glucose 302 H 04/10/20 06:34: POC Glucose 161 H 04/10/20 06:50: WBC 10.0, RBC 5.47, Hgb 14.5, Hct 47.5, MCV 86.8, MCH 26.5 L, MCHC 30.5 L, RDW Std Deviation 44.2 H, RDW Coeff of Kay 13.7, Plt Count 251, MPV 10.5 04/10/20 06:50: Sodium 142, Potassium 3.9, Chloride 103, Carbon Dioxide 34.0 H, Anion Gap 5, BUN 16, Creatinine 0.54 L, Estim Creat Clear Calc 57.56, Est GFR (MDRD) Af Amer 193, Est GFR (MDRD) Non-Af 159, BUN/Creatinine Ratio 29.6 H, Glucose 153 H, Calcium 8.9, Total Bilirubin 0.50, AST 30, ALT 41, Alkaline Phosphatase 89, Total Protein 7.2, Albumin 2.8 L, Globulin 4.4 H, Albumin/Globulin Ratio 0.6 L Current Medications Acetaminophen (Acetaminophen 325 Mg Tablet) 650 mg PO Q6H PRN PRN PRN Reason: Pain Score 1-10/Temp > 100.7 F Last Admin: 04/07/20 00:09 Dose: 650 mg Documented by: Albuterol Sulfate (Albuterol Sulfate 18 Gm Inhaler (200 Puffs)) 2 puff IH Q4HWA [facility] Last Admin: 04/10/20 07:49 Dose: 2 puff Documented by: Atorvastatin Calcium (Atorvastatin Calcium 10 Mg Tablet) 10 mg PO MoTh@2200 [facility] Last Admin: 04/07/20 22:57 Dose: 10 mg Documented by: Calamine/Phenol (Menthol/Lanolin/Calamine/Znox 113 Gm Tube) 1 applic TOPICAL BID [facility]; Protocol Last Admin: 04/10/20 07:48 Dose: 1 applicatio Documented by: Dexamethasone (Dexamethasone 4 Mg Tablet) 6 mg PO DAILY@0800 [facility] Last Admin: 04/10/20 07:43 Dose: 6 mg Documented by: Dextrose (Dextrose 50%-Water 25 Gm/50 Ml Disp.Syrin) 0 gm IV X1 PRN; Protocol PRN Reason: Hypoglycemia Enoxaparin Sodium (Enoxaparin 30 Mg/0.3 Ml Syringe) 30 mg SC BID [facility] Last Admin: 04/10/20 07:48 Dose: 30 mg Documented by: Glucagon (Glucagon 1 Mg/Ml Syringe) 1 mg IM .X1 PRN PRN Reason: Hypoglycemia Guaifenesin (Guaifenesin 1,200 Mg Tablet) 1,200 mg PO BID [facility] Last Admin: 04/10/20 07:40 Dose: 1,200 mg Documented by: Sodium Chloride () 250 mls @ 15 mls/hr IV .[id number] PRN PRN Reason: Saline Flush Last Infusion: 04/09/20 14:04 Dose: 0 mls/hr Documented by: Sodium Chloride () 250 mls @ 15 mls/hr IV .[id number] PRN PRN Reason: Additional IVPB Infusion Remdesivir 100 mg/ Sodium (Chloride) 250 mls @ 125 mls/hr IV DAILY [facility]; Protocol Stop: 04/11/20 11:59 Last Infusion: 04/09/20 13:06 Dose: Infused Documented by: Sodium Chloride () 500 mls @ 15 mls/hr IV PRN PRN PRN Reason: Blood Transfusion Last Infusion: 04/08/20 10:17 Dose: Infused Documented by: Sodium Chloride () 250 mls @ 15 mls/hr IV .[id number] PRN PRN Reason: Saline Flush Sodium Chloride () 250 mls @ 15 mls/hr IV .[id number] PRN PRN Reason: Additional IVPB Infusion Insulin Glargine (Insulin Glargine 100 Units/Ml Pen) 25 units SC 1100 [facility] Last Admin: 04/09/20 11:20 Dose: 25 u Documented by: Insulin Human Lispro (Insulin Lispro 100 Unit/Ml Insuln.Pen) 0 unit SC ACHS [facility]; Protocol Last Admin: 04/10/20 06:36 Dose: 2 units Documented by: Levothyroxine Sodium (Levothyroxine 25 Mcg Tablet) 25 mcg PO SuSa@1000 [facility] Last Admin: 04/10/20 07:40 Dose: 25 mcg Documented by: Levothyroxine Sodium (Levothyroxine 50 Mcg Tablet) 50 mcg PO MoTuWeThFr@1000 [facility] Last Admin: 04/08/20 11:34 Dose: 50 mcg Documented by: Melatonin (Melatonin 3 Mg Tablet) 3 mg PO QHS PRN PRN PRN Reason: INSOMNIA Last Admin: 04/08/20 21:58 Dose: 3 mg Documented by: Metformin HCl (Metformin (Xr) 500 Mg Tablet) 500 mg PO BIDCM [facility] Last Admin: 04/10/20 07:42 Dose: 500 mg Documented by: Miscellaneous Information (Inhaler, Assist Devices 1 Each Spacer) 1 each INHALATION PRN PRN PRN Reason: WITH ALBUTEROL MDI Last Admin: 04/07/20 08:44 Dose: 1 each Documented by: Ondansetron HCl (Ondansetron 4 Mg/2 Ml Vial) 4 mg IV Q8H PRN PRN PRN Reason: NAUSEA/VOMITING Sodium Chloride (0.9% Saline Lock 10 Ml Syringe) 10 - 40 ml IV UD PRN PRN Reason: SALINE FLUSH Last Admin: 04/08/20 11:39 Dose: 10 ml Documented by: Tolterodine Tartrate (Tolterodine Tartrate 2 Mg Cap.Sa) 2 mg PO DAILY [facility] Last Admin: 04/10/20 07:40 Dose: 2 mg Documented by: Medical Necessity - Tobacco Use Smoking Status: Never smoker Tobacco Use: Non-smoker Assessment/Plan All Active Problems COVID-19 (Acute) Hypoxia (Acute) COVID-19 virus infection (Acute) COPD exacerbation (Acute) RECOMMENDATIONS: 1. Steroids, anticoagulation, convalescent serum and remdesivir per ID 2. Wean oxygen as tolerated 3. We will dose with a single dose of diuretics 4. Likely okay to monitor off antibiotics from my perspective 5. Monitor blood sugars closely with sliding scale if indicated. Add Lantus 6. Possibly discharge tomorrow to ECF if possible IMPRESSIONS: 1. Acute hypoxic respiratory insufficiency secondary to COVID-19 Chest x-ray was relatively unremarkable. CT of the chest did show some scattered groundglass opacities. Patient does not have significant emphysematous changes noted. Reasonable to use bronchodilators. Steroids, anticoagulation, convalescent serum and remdesivir per infectious disease. Patient does have a history of diastolic dysfunction, so will proceed with a diuretic challenge today. Symptomatic treatment for fever and Mucinex to help with pulmonary toileting will also be helpful. Exact timing of onset of symptoms is unclear, should patient may continue to decompensate despite aggressive therapy. Blood sugars have been relatively controlled. We will continue to attempt diuresis as possible. 2. Obesity/advanced age/diabetes mellitus/history of poor wound healing Complicates care, management, recovery and prognosis. We will need to monitor patient closely for complications associated with steroid therapy. Sliding scale insulin has been ordered. Inpatient E&M: [id number] Subs Hosp L2
[2020-04-10] MEDS: 0.9% Saline Lock 10 ML Syringe IV (10:54)
[2020-04-10] MEDS: Furosemide 40 MG/4 ML Vial IV (10:56)
[2020-04-10 11:21] LABS: Bedside Glucose 323 mg/dL (70-110)
[2020-04-10 17:10] LABS: Bedside Glucose 367 mg/dL (70-110)
[2020-04-10] MEDS: MELATONIN 3 MG TABLET PO (20:54)
[2020-04-10 21:26] LABS: Bedside Glucose 296 mg/dL (70-110)
[2020-04-11 02:45] VITALS: BP 111/72; PULSE 67; RESP 18; TEMP 36.8; O2SAT 94
[2020-04-11] MEDS: Insulin Lispro 100 UNIT/ML INSULN.PEN SC ×2 (06:42→11:00)
[2020-04-11 06:46] VITALS: O2SAT 90
[2020-04-11 06:56] LABS: Bedside Glucose 165 mg/dL (70-110)
[2020-04-11 07:00] LABS: Hematocrit 51.2 % (40-54); Hemoglobin 15.4 g/dL (13.0-16.5); Mean Corp Hgb Conc 30.1 g/dL (32-36); Mean Corpuscular Volume 86.3 fL (80-94); Mean Platelet Vol. 10.9 fl (6.2-12.0); Platelet Count 264 K/mm3 (150-450); RBC Distribution Width CV 13.7 % (11.6-14.6); RBC Distribution Width SD 44.2 fl (35.1-43.9); Red Blood Count 5.93 M/mm3 (4.6-6.2); White Blood Count 9.6 K/mm3 (4.4-11.0)
[2020-04-11 07:36] LABS: ALB/GLOB Ratio 0.6 RATIO (0.9-2.4); AST(SGOT) 25 U/L (15-37); Alanine Aminotransfer ALT/SGPT 43 U/L (16-61); Albumin, Serum 2.8 g/dL (3.2-5.0); Alkaline Phosphatase 93 U/L (45-117); Anion Gap 6 (5-15); BUN 19 mg/dL (7-18); BUN/Creat Ratio 30.3 RATIO (10-20); Chloride 97 mmol/L (98-107); Creatinine, Serum 0.63 mg/dL (0.70-1.30); EST Glomerular Filtration Rate 134 mL/min (>60); Est Glom Filt Rate - Afr Amer 162 mL/min (>60); Estimated Creatinine Clearance 57.56 ml/min; Globulin 4.5 g/dL (2.2-4.2); Glucose 161 mg/dL (74-106); Protein, Total 7.3 g/dL (6.4-8.2); Sodium Level 139 mmol/L (136-145)
[2020-04-11 10:12] VITALS: O2SAT 95
--- NOTE | 2020-04-11 10:41 | CASEMGMT ---
Addendum entered by Amanda Vora 04/11/20 11:26: Social Work Return call from and she spoke with daughter and they have decided on [facility]. Plan: [facility] SNF, when medically ready. BURT Robles Original Note: Social Work Referrals made on Saturday to both [facility] and [facility]. SW placed calls to both facilities this morning and both are able to accept pt today. Attempted to call pt but pt did not answer phone. Phone call to pt Sharron and discussed how pt has been doing with therapy and that both SNFs can accept pt. Sharron in agreement that pt would need SNF and would prefer [facility]. will talk to pt dgt and confirm this with her. SW to continue to follow for SNF placement. Plan: [facility], when medically ready BURT Robles
[2020-04-11] MEDS: Enoxaparin 30 MG/0.3 ML Syringe SC (10:54)
[2020-04-11] MEDS: dexAMETHasone 4 MG Tablet 6 MG PO (10:54)
[2020-04-11] MEDS: metFORMIN (XR) 500 MG Tablet PO (10:54)
[2020-04-11] MEDS: Levothyroxine 50 MCG Tablet PO (10:54)
[2020-04-11] MEDS: guaiFENesin 1,200 MG Tablet 1200 MG PO (10:54)
[2020-04-11] MEDS: 0.9% Saline Lock 10 ML Syringe IV (10:55)
[2020-04-11] MEDS: Menthol/Lanolin/Calamine/Znox 113 GM Tube 1 APPLIC TOPICAL (10:57)
[2020-04-11 11:04] VITALS: BP 136/80; PULSE 75; RESP 18; TEMP 36.8; O2SAT 92
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
[2020-04-11 12:08] VITALS: O2SAT 89
[2020-04-11 12:20] LABS: Bedside Glucose 284 mg/dL (70-110)
--- NOTE | 2020-04-11 14:11 | CASEMGMT ---
Social Work Per physician, Pt is ready for discharge today. Phone call to [facility] and they are able to accept today. 7000 form completed and orders and 7000 faxed to facility. [facility] for 3:30 seed cone picker by stretcher. Pt, pt and nursing notified of discharge plan. Terese at [facility] notified that pt will not be coming to their facility. BURT Robles
[2020-04-11 15:19] VITALS: BP 129/67; PULSE 72; RESP 20; TEMP 36.8; O2SAT 92
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
== END 2020-04-11 15:40 | disposition skilled nursing facility (03) | DRG 177 ==
LOC: ED 19:08 → MS2 22:36
PROVIDERS: Internal Medicine; Internal Medicine Infectious Disease; Admitting Provider Hospitalist; Emergency Provider Emergency Medicine; PCP Internal Medicine; Referring Provider Hospitalist; Visit Provider Internal Medicine
DX: U07.1 COVID-19 (principal); J12.89 Other viral pneumonia; J44.0 Chronic obstructive pulmonary disease with (acute) lower respiratory infection; J44.1 Chronic obstructive pulmonary disease with (acute) exacerbation; G81.94 Hemiplegia, unspecified affecting left nondominant side; E87.0 Hyperosmolality and hypernatremia; E86.0 Dehydration; E11.65 Type 2 diabetes mellitus with hyperglycemia; T38.0X5A Adverse effect of glucocorticoids and synthetic analogues, initial encounter; E03.9 Hypothyroidism, unspecified; E78.5 Hyperlipidemia, unspecified; I87.2 Venous insufficiency (chronic) (peripheral); E66.9 Obesity, unspecified; Z68.38 Body mass index [BMI] 38.0-38.9, adult; Z99.81 Dependence on supplemental oxygen; Z79.4 Long term (current) use of insulin; Z79.890 Hormone replacement therapy; Z79.899 Other long term (current) drug therapy; Z23 Encounter for immunization
CPT/HCPCS: 36415; 71045; 71275; 80053; 82962; 83036; 83605; 83880; 84484; 85025; 85027; 85379; 86900; 86901; 87040; 87633; 87635; 92526; 92610; 94640; 97110; 97116; 97162; 97166; 97530; 97535; 97802; 99285; G0008; J7040; J7050; Q9967; 90686; A4216; J1940; U0002

== ENCOUNTER 2024-07-22 11:14 | Emergency (ER) | payer MEDICARE, OTHER, SELFPAY ==
[2024-07-22 11:15] VITALS: BP 140/77; PULSE 82; RESP 16; TEMP 36.9; O2SAT 96
[2024-07-22 11:23] VITALS: BMI 34.0
--- NOTE | 2024-07-22 11:57 | EX.ED.DYSGE1 ---
HPI History of Present Illness Chief Complaint: Complaint Informant: patient Onset/Context/Timing Onset: Days (3) Context: Gradual Onset Timing: Continuous Quality: Burning Location: Suprapubic area Worsened by: Urination Relieved by: Nothing Narrative Narrative: Patient presents with dysuria that has been getting worse over the past 3 days. Patient states he has burning whenever he urinates. The patient admits to some suprapubic tenderness as well. Patient denies any fevers or chills. Patient states he does have some pain in his left low back area. Patient denies any nausea or vomiting. Patient denies any hematuria. [facility] Medical History (Updated 07/22/24 @ 14:[address] Remy Moncada, DO) Traumatic brain injury Type 2 diabetes mellitus Home Medications ?Medication ?Instructions ?Recorded ?Last Taken ?Type Oxybutynin Chloride [Ditropan Xl] 5 mg PO DAILY Check with primary 04/18/18 04/18/18 History doctor albuterol sulfate 90 mcg/actuation 2 puff inhalation Q4H PRN PRN Sob 04/18/18 04/16/18 History aerosol inhaler (ProAir HFA) &/Or Wheezing levothyroxine 50 mcg tablet 25 mcg PO SUSA thyroid 04/18/18 04/13/18 History levothyroxine 50 mcg tablet 50 mcg PO MOTUWETHFR thyroid 04/18/18 04/18/18 History metformin 500 mg tablet,extended 500 mg PO BID 04/06/20 Unknown History release 24 hr rosuvastatin 5 mg tablet 5 mg PO MOTH 04/06/20 Unknown History acetaminophen 325 mg tablet 650 mg (2 x 325 mg) PO Q6H PRN PRN 04/11/20 Unknown Rx Pain Score 1-10/Temp > 100.7 F dexamethasone 4 mg tablet 6 mg (1.5 x 4 mg) PO DAILY@0800 #5 04/11/20 Unknown Rx tabs enoxaparin 30 mg/0.3 mL 30 mg (0.3 mL) subcut BID 04/11/20 Unknown Rx subcutaneous syringe insulin glargine 100 unit/mL (3 30 units subcut 1100 04/11/20 Unknown Rx mL) subcutaneous pen cephalexin 500 mg capsule 500 mg PO Q6 #12 CAPSULES 07/22/24 Unknown Rx Allergy/AdvReac Type Severity Reaction Status Date / Time No Known Allergies Allergy Verified 07/22/24 11:17 Surgical History (Updated 07/22/24 @ 13:[address] Remy Moncada DO) Hx of appendectomy Social History Smoking Status: Never smoker ROS ROS ED Constitutional Constitutional ED: Denies chills or fever(s) Eyes Eyes: Denies blurry vision or change in vision ENT ENT ED: Reports rhinorrhea; Denies sore throat Cardiovascular Cardiovascular: Denies chest pain or palpitations Respiratory/Chest Respiratory/Chest: Denies cough or dyspnea Gastrointestinal Gastrointestinal: Reports abdominal pain; Denies nausea or vomiting Genitourinary Genitourinary ED: Reports dysuria; Denies hematuria Musculoskeletal Musculoskeletal: Reports back pain; Denies neck pain Integumentary Denies abscess or rash Neurologic Neurologic: Denies headache(s) or weakness Allergic/Immunologic Allergic/Immunologic ED: Denies mouth swelling or urticaria EXAM Physical Exam Const Vital Signs: 07/22/24 11:15 07/22/24 13:57 Temperature 98.5 F 98.1 F Temperature Source Oral Oral Pulse Rate 82 71 Respiratory Rate 16 18 Blood Pressure 140/77 H 112/55 L Blood Pressure Mean 98 74 Pulse Ox 96 94 Oxygen Delivery Method Room Air Room Air Positive well nourished and well developed General Appearance ED: well developed and NAD HEENT Reports moist mucous membranes Neck supple and no JVD Resp normal respiratory effort and clear to auscultation bilaterally Cardio regular rate and regular rhythm GI non-distended Palpation: soft and tender suprapubic; Negative for guarding Neuro oriented x3, CN's II-XII intact bilaterally and no sensory deficits noted Sensorium / Orientation: alert Psych mental status grossly normal MDM MDM MDM Narrative Medical decision making narrative: Differential diagnosis includes urinary tract infection, ureteral calculus, pyelonephritis, and dysuria. Urinalysis will be obtained to assess for urinary tract infection and hematuria. Lab Data Attestation: I reviewed the patient's lab results. Lab results narrative: Urinalysis was reviewed. Leukocyte esterase was 500 with 5-10 white blood cells and 1+ bacteria. Labs: Laboratory Results - last 24 hr 07/22/24 13:15 Urine Color Straw Urine Clarity Sl. Cloudy Urine pH 7.0 Ur Specific [place] 1.010 Urine Protein 15 H Urine Glucose (UA) Normal Urine Ketones Negative Urine Occult Blood 25 H Urine Nitrite Negative Urine Bilirubin Negative Urine Urobilinogen Normal Ur Leukocyte Esterase 500 H Urine RBC 0-5 SEEN Urine WBC 5-10 SEEN Ur Squamous Epith Cells 0-5 SEEN Urine Bacteria 1+ Urine Mucus 0 SEEN Additional Tests and Interventions Additional Tests or Interventions: Urine culture was ordered. Treatment and Re-Evaluation :: Patient was advised of his findings. Patient was given a dose of Keflex here. Patient was instructed to drink plenty of fluids. Patient was instructed to follow-up with his primary care physician in 5 to 7 days. Patient was instructed take Tylenol or ibuprofen as needed for any pain or fevers. Patient and family understood and were agreeable with the plan. All questions were answered. Discharge Plan Triage Chief Complaint: Complaint ED Provider: Remy Moncada Dx/Rx/DC Orders Clinical Impression: Urinary tract infection, Type 2 diabetes mellitus Instructions: ED Bladder Infection, Male (Adult), ED Urinary Tract Infections in Men Prescriptions: New cephalexin 500 mg capsule 500 mg PO Q6 Qty: 12 0RF No Action levothyroxine 50 MCG tablet 25 mcg PO SUSA Patient Comments: Take one(1) tablet daily Mon-Sat, 1/2 tablet on Sat & Sun levothyroxine 50 MCG tablet 50 mcg PO MOTUWETHFR Patient Comments: Take one(1) tablet daily Mon-Sat, 1/2 tablet on Sat & Sun Oxybutynin Chloride [Ditropan Xl] 5 MG tablet 5 mg PO DAILY albuterol sulfate [ProAir HFA] 1 PUFF inhaler 2 puff inhalation Q4H PRN PRN (Reason: Sob &/Or Wheezing) metformin 500 MG tablet extended release 24 hr 500 mg PO BID rosuvastatin 5 MG tablet 5 mg PO MOTH acetaminophen 325 MG tablet 650 mg PO Q6H PRN PRN (Reason: Pain Score 1-10/Temp > 100.7 F) 0RF dexamethasone 4 MG tablet 6 mg PO DAILY@0800 Qty: 5 0RF Rx Instructions: discontinue after five doses enoxaparin 30 MG/0.3 ML syringe 30 mg SC BID 0RF Rx Instructions: stop after 2 weeks insulin glargine 100 UNITS/ML insulin pen 30 units SC 1100 0RF Primary Care Provider: Trisha Barros Referrals: [place],Trisha D, MD [Primary Care Provider] - 5-7 Days Print Language: Syriac Disposition Disposition: Home, Self Care
[2024-07-22 13:23] LABS: Mucous, Urine 0 SEEN /hpf (<or=2+)
[2024-07-22 13:40] LABS: Color, Urine Straw (Yellow); Glucose, Dipstick Normal (Normal); Ketone-Dipstick Negative (Negative); Leukocyte Esterase-Dipstick 500 /ul (Negative); Nitrite-Dipstick Negative (Negative); Occult Blood-Urine 25 /ul (Negative); Protein-Dipstick 15 mg/dl (Negative); Urine Bilirubin Dipstick Negative (Negative); Urine Clarity Sl. Cloudy (Clear); Urine Urobilinogen Normal (Normal)
[2024-07-22 13:55] LABS: Bacteria 1+ /hpf (None Seen); Red Blood Cells-Urine 0-5 SEEN /hpf (0-5); Squamous Epithelial Cells - UA 0-5 SEEN /hpf (0-5); White Blood Cells 5-10 SEEN /hpf (0-5)
[2024-07-22 13:57] VITALS: BP 112/55; PULSE 71; RESP 18; TEMP 36.7; O2SAT 94
[2024-07-22] MEDS: Cephalexin 500 MG Capsule PO (14:37)
== END 2024-07-22 15:01 | disposition home or self-care (01) ==
PROVIDERS: Emergency Provider Emergency Medicine; PCP Internal Medicine; Referring Provider Emergency Medicine; Visit Provider Emergency Medicine
DX: N39.0 Urinary tract infection, site not specified (principal); E11.9 Type 2 diabetes mellitus without complications; Z79.4 Long term (current) use of insulin; Z79.84 Long term (current) use of oral hypoglycemic drugs
CPT/HCPCS: 81001; 87077; 87086; 87088; 99282

== ENCOUNTER 2024-08-17 17:25 | Inpatient (IN) | payer MEDICARE, OTHER, SELFPAY ==
[2024-08-17 17:26] VITALS: BP 135/75; PULSE 81; RESP 18; TEMP 36.3; O2SAT 94
[2024-08-17 18:19] VITALS: BMI 34.4
--- NOTE | 2024-08-17 18:29 | EDS_ITS ---
HPI History of Present Illness Chief Complaint: Complaint Narrative Narrative: 74-year-old male past medical history of chronic weakness of left upper extremity, previous UTI and hematuria presents with his because over the last few days he is developing the same symptoms that he had a few weeks ago. They state that he had bladder discomfort and gross hematuria. This started on Saturday, approximately 2 days ago. Yesterday, he had hematuria again, but was having difficulty urinating. He does not take blood thinners. Today, he was so weak that he could not turn around in his walker. Additionally he had fallen onto his left side and complains of left upper and lower arm pain. He denies any his head or loss of consciousness but presents with generalized weakness, hematuria and decreased ability to urinate. [facility] Medical History (Updated 08/17/24 @ 21:02 by Anton HOANG, PA) Type 2 diabetes mellitus BPH (benign prostatic hyperplasia) COPD (chronic obstructive pulmonary disease) Left hemiplegia HLD (hyperlipidemia) Traumatic brain injury Type 2 diabetes mellitus Home Medications ?Medication ?Instructions ?Recorded ?Last Taken ?Type Oxybutynin Chloride [Ditropan Xl] 5 mg PO DAILY Check with primary 04/18/18 04/18/18 History doctor albuterol sulfate 90 mcg/actuation 2 puff inhalation Q 4H PRN PRN Sob 04/18/18 04/16/18 History aerosol inhaler (ProAir HFA) &/Or Wheezing levothyroxine 50 mcg tablet 25 mcg PO SUSA thyroid 02/2504/13/18 History levothyroxine 50 mcg tablet 50 mcg PO MOTUWETHFR thyro id 04/18/18 04/18/18 History metformin 500 mg tablet,extended 500 mg PO BID 0 Unknown History release 24 hr rosuvastatin 5 mg tablet 5 mg PO MOTH 04/06/20 Unknow n History acetaminophen 325 mg tablet 650 mg (2 x 325 mg) PO Q6H PRN PRN 04/11/20 Unknown Rx Pain Score 1-10/Temp > 100.7 F dexamethasone 4 mg tablet 6 mg (1.5 x 4 mg) PO DAILY@0 800 #5 04/11/20 Unknown Rx tabs enoxaparin 30 mg/0.3 mL 30 mg (0.3 mL) subcut BID Unknown Rx subcutaneous syringe insulin glargine 100 unit/mL (3 30 units subcut 1100 1 06/11/19 Unknown Rx mL) subcutaneous pen cephalexin 500 mg capsule 500 mg PO Q6 #12 CAPSULES Unknown Rx Allergy/AdvReac Type Severity Reaction Status Date / Time No Known Allergies Allergy Verified 08/17/24 17:26 Family History no significant family his Surgical History Hx of appendectomy Social History Smoking Status: Never smoker ROS ROS ED ROS Narrative Review of systems positive for gross hematuria, difficulty urinating, generalized weakness, and left upper and lower arm pain status post fall. EXAM Physical Exam Narrative Exam Narrative: GCS 15. ABCs are intact. HEENT examination grossly unremarkable. Inspection of the left upper extremity does reveal superficial abrasions and diffuse tenderness to palpation of the distal humerus as well as the forearm. There is noted bruising which appears chronic. Palpable radial pulse, left. No crepitance. Cardiovascular examination reveals a regular rate and rhythm. Lungs are clear to auscultation bilaterally. The abdomen is soft and nontender without suprapubic discomfort. Neurological examination shows him to be awake, alert, and oriented. Const Vital Signs: 08/17/24 17:26 08/17/24 19:25 08/17/24 20:53 Temperature 97.3 F L 98.3 F Temperature Source Temporal Pulse Rate 81 78 77 Respiratory Rate 18 16 18 Blood Pressure 135/75 H 116/71 114/70 Blood Pressure Mean 95 86 84 Pulse Ox 94 95 94 Oxygen Delivery Method Room Air Room Air 08/17/24 20:54 Temperature 98.3 F Temperature Source Oral Pulse Rate 78 Respiratory Rate 18 Blood Pressure 114/70 Blood Pressure Mean 84 Pulse Ox 94 Oxygen Delivery Method Room Air MDM MDM MDM Narrative Medical decision making narrative: Concern is for left upper extremity contusion versus fracture. Regarding his gross hematuria, he may have a bladder infection/hemorrhagic cystitis versus ureterolithiasis. Regarding his urinary retention, he may have a clot in the bladder or BPH. Comprehensive workup was pursued. X-rays of the left forearm and humerus were obtained and interpreted by myself independently which shows no evidence of fracture. I reviewed the radiology report which confirms my independent interpretation. Patient was able to produce a urine sample without catheterization. I reviewed his laboratory work and he has a leukocytosis of 18.0 with hemoglobin normal at 14.4 and platelet count 273. Electrolyte panel shows glucose appropriately elevated at 135 with a normal anion gap of 12. BUN is 11 with creatinine low at 0.69. Urinalysis obtained and is positive for infection with 50-100 WBCs and 2+ bacteria. There are 5-10 RBCs. Urine will be sent for culture. He was started on Rocephin 1 g intravenously. Currently, he is not meeting other SIRS criteria except for his leukocytosis. Given his generalized weakness, I will discussed patient with the [facility] for the hospitalist. Patient and family are not comfortable with him being discharged on oral antibiotics as he had a fall today from his generalized weakness and was unable to pivot or turn even using a walker. Disposition is admit. Patient is in stable condition. History & Record Review Discussion w/independent historian: Patient and Family Lab Data Attestation: I reviewed the patient's lab results. Labs: Laboratory Results - last 24 hr 08/17/24 08/17/24 18:15 18:50 WBC 18.0 H RBC 5.22 Hgb 14.4 Hct 43.9 MCV 84.1 MCH 27.6 MCHC 32.8 RDW Std Deviation 41.8 RDW Coeff of Kay 13.7 Plt Count 273 MPV 9.4 Immature Gran % (Auto) 0.600 Neut % (Auto) 75.8 H Lymph % (Auto) 13.4 L [place] % (Auto) 9.0 Eos % (Auto) 0.6 Baso % (Auto) 0.6 Absolute Neuts (auto) 13.7 H Absolute Lymphs (auto) 2.40 Nucleated RBC % 0 Sodium 138 Potassium 3.8 Chloride 99 Carbon Dioxide 26.9 Anion Gap 12 BUN 11 Creatinine 0.69 L Estim Creat Clear Calc 86.98 Est GFR (MDRD) Non-Af 97 BUN/Creatinine Ratio 16.0 Glucose 135 H Calcium 9.3 Urine Color Yellow Urine Clarity Sl. Cloudy Urine pH 6.0 Ur Specific [place] 1.010 Urine Protein 30 H Urine Glucose (UA) Normal Urine Ketones Negative Urine Occult Blood 150 H Urine Nitrite Positive H Urine Bilirubin Negative Urine Urobilinogen Normal Ur Leukocyte Esterase 500 H Urine RBC 5-10 SEEN Urine WBC 50-100 SEEN Ur Squamous Epith Cells 0 SEEN Urine Bacteria 2+ Urine Mucus 0 SEEN Radiography Diagnostic Testing: Clinical Impression(s) from Imaging Studies Abdomen/Pelvis CT 08/17/24 18:32 IMPRESSION: 1. No acute abdominopelvic finding. 2. Mild circumferential bladder wall thickening, likely secondary to incomplete bladder distention. Correlation with urinalysis recommended. 3. Mild cardiomegaly with aortic valvular and coronary artery calcifications. One or more dose reduction techniques were used (e.g., Automated exposure control, adjustment of the mA and/or kV according to patient size, use of iterative reconstruction technique). Reading Location: [id number] Forearm X-Ray 08/17/24 18:57 IMPRESSION: No acute fracture. Reading Location: [id number] Humerus X-Ray 08/17/24 18:57 IMPRESSION: No acute fracture. Reading Location: [facility] Discharge Plan Dx/Rx/DC Orders Clinical Impression: UTI (urinary tract infection), Generalized weakness, Leukocytosis, Contusion of arm, left Disposition Disposition: Acute Care Hospital [facility]
--- NOTE | 2024-08-17 18:32 | CT_ITS ---
PROCEDURE: ABDOMEN/PELVIS WITHOUT CONT REASON FOR EXAM: 74-year-old male, difficult and painful urination with gross hematuria since Saturday. TECHNIQUE: Abdomen and pelvis CT without intravenous contrast. No oral contrast. COMPARISON: None. FINDINGS: Noncontrast technique limits evaluation of the abdominal and pelvic viscera. Lung bases: Mild cardiomegaly with aortic valvular and coronary artery calcifications. Bibasilar atelectasis/scarring. Liver: The unopacified liver is normal in size. No biliary ductal dilation. Gallbladder: No radiopaque stones within the gallbladder. Spleen: Unremarkable. Pancreas: Diffuse fatty atrophy. Adrenals: Unremarkable. Kidneys: Simple left renal cyst. No hydronephrosis or nephrolithiasis. Bladder: The urinary bladder is mildly distended with mild bladder wall thickening. Reproductive Organs: Probable prior TURP. Bowel: The bowel loops are normal in caliber. No ascites or pneumoperitoneum. Normal appendix. Lymph nodes: No suspicious lymph node enlargement. Vasculature: Calcific plaque of the aortoiliac vessels. Bones: Diffuse osseous demineralization. No aggressive osseous lesions. CT/Abdomen/Pelvis without Cont IMPRESSION: 1. No acute abdominopelvic finding. 2. Mild circumferential bladder wall thickening, likely secondary to incomplete bladder distention. Correlation with urinalysis recommended. 3. Mild cardiomegaly with aortic valvular and coronary artery calcifications. One or more dose reduction techniques were used (e.g., Automated exposure contr ol, adjustment of the mA and/or kV according to patient size, use of iterative reconstruction technique). Reading Location: [id number]
[2024-08-17 18:43] LABS: Absolute Neutrophil Count 13.7 X10^3/uL (2.0-7.7); Basophil% 0.6 % (0-1); Eosinophil# 0.11 X10^3/uL; Eosinophils% 0.6 % (0-5); Hematocrit 43.9 % (40-54); Hemoglobin 14.4 g/dL (13.0-16.5); Lymphocyte % 13.4 % (19-41); Mean Corp Hgb Conc 32.8 g/dL (32-36); Mean Corpuscular Hgb 27.6 pg (27.0-32.0); Mean Corpuscular Volume 84.1 fL (80-94); Mean Platelet Vol. 9.4 fl (6.2-12.0); Monocyte# 1.61 X10^3/uL; NRBC Flagged by Analyzer 0 % (0-5); Neutrophil # 13.65 X10^3/uL (2.7-7.7); Neutrophil % 75.8 % (47-70); POSITIVE DIFFERENTIAL YES; Platelet Count 273 K/mm3 (150-450); RBC Distribution Width CV 13.7 % (11.6-14.6); RBC Distribution Width SD 41.8 fl (35.1-43.9); Red Blood Count 5.22 M/mm3 (4.6-6.2)
[2024-08-17 18:45] LABS: Differential Indicated SCAN CRITERIA MET
[2024-08-17 18:56] LABS: Mucous, Urine 0 SEEN /hpf (<or=2+); Squamous Epithelial Cells - UA 0 SEEN /hpf (0-5)
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
[2024-08-17 19:09] LABS: Color, Urine Yellow (Yellow); Glucose, Dipstick Normal (Normal); Ketone-Dipstick Negative (Negative); Leukocyte Esterase-Dipstick 500 /ul (Negative); Nitrite-Dipstick Positive (Negative); Occult Blood-Urine 150 /ul (Negative); Protein-Dipstick 30 mg/dl (Negative); Urine Bilirubin Dipstick Negative (Negative); Urine Clarity Sl. Cloudy (Clear); Urine Urobilinogen Normal (Normal)
[2024-08-17 19:25] VITALS: BP 116/71; PULSE 78; RESP 16; O2SAT 95
[2024-08-17 19:54] LABS: Bacteria 2+ /hpf (None Seen); White Blood Cells 50-100 SEEN /hpf (0-5)
[2024-08-17 19:55] LABS: Red Blood Cells-Urine 5-10 SEEN /hpf (0-5)
[2024-08-17 19:56] LABS: Anion Gap 12 (5-15); BUN 11 mg/dL (4-19); Calcium,Total 9.3 mg/dL (7.6-11.0); Carbon Dioxide 26.9 mmol/L (21.0-32.0); Chloride 99 mmol/L (98-108); Creatinine, Serum 0.69 mg/dL (0.70-1.20); EST Glomerular Filtration Rate 97 (>60); Estimated Creatinine Clearance 86.98 ml/min (50-250); Glucose 135 mg/dL (70-99); Potassium 3.8 mmol/L (3.3-5.1); Sodium Level 138 mmol/L (133-145)
[2024-08-17] MEDS: Ceftriaxone 1 GM/50 ML BAG IV (20:52)
[2024-08-17 20:53] VITALS: BP 114/70; PULSE 77; RESP 18; TEMP 36.8; O2SAT 94
[2024-08-17 20:54] VITALS: BP 114/70; PULSE 78; RESP 18; TEMP 36.8; O2SAT 94
--- NOTE | 2024-08-17 20:54 | PCM.HP.STD ---
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 The patient has a hx of UTI and BPH for which he follows Urology Dr. Schaffer, recently treated with amoxicillin about 2 weeks ago, at the time similar symptoms. Also previously seen here 07/22/24 On saturday symptoms began again, including dysuria, difficulty emptying bladder, fabienne hematuria, suprapubic pain. Pt called urology and they agreed to see him tomorrow in the office. However in the meantime his symptoms continued to worsen with today developing weakness to the point where he could not stand and pivot in the walker, with subsequent fall onto his left side, which prompted the family to bring him to the ER. In the ER he was found weak and lethargic with ongoing suprapubic abdominal discomfort and left arm pain. Labs remarkable for CT abdomen revealed bladder wall thickening, left forearm and humeral xrays showed no acute process. [facility] Medical History (Updated 08/17/24 @ 22:24 by Anton HOANG, PA) Type 2 diabetes mellitus BPH (benign prostatic hyperplasia) COPD (chronic obstructive pulmonary disease) Left hemiplegia HLD (hyperlipidemia) Traumatic brain injury Type 2 diabetes mellitus Home Medications ?Medication ?Instructions ?Recorded ?Last Taken ?Type Oxybutynin Chloride [Ditropan Xl] 5 mg PO DAILY Check with primary 04/18/18 04/18/18 History doctor albuterol sulfate 90 mcg/actuation 2 puff inhalation Q4H PRN PRN Sob 04/18/18 04/16/18 History aerosol inhaler (ProAir HFA) &/Or Wheezing levothyroxine 50 mcg tablet 25 mcg PO SUSA thyroid 04/18/18 04/13/18 History levothyroxine 50 mcg tablet 50 mcg PO MOTUWETHFR thyroid 04/18/18 04/18/18 History metformin 500 mg tablet,extended 500 mg PO BID 04/06/20 Unknown History release 24 hr rosuvastatin 5 mg tablet 5 mg PO MOTH 04/06/20 Unknown History acetaminophen 325 mg tablet 650 mg (2 x 325 mg) PO Q6H PRN PRN 04/11/20 Unknown Rx Pain Score 1-10/Temp > 100.7 F dexamethasone 4 mg tablet 6 mg (1.5 x 4 mg) PO DAILY@0800 #5 04/11/20 Unknown Rx tabs enoxaparin 30 mg/0.3 mL 30 mg (0.3 mL) subcut BID 04/11/20 Unknown Rx subcutaneous syringe insulin glargine 100 unit/mL (3 30 units subcut 1100 04/11/20 Unknown Rx mL) subcutaneous pen cephalexin 500 mg capsule 500 mg PO Q6 #12 CAPSULES 07/22/24 Unknown Rx Allergy/AdvReac Type Severity Reaction Status Date / Time No Known Allergies Allergy Verified 08/17/24 17:26 Family History no significant family his Surgical History Hx of appendectomy Social History Smoking Status: Never smoker ROS Constitutional Constitutional: Reports weakness; Denies chills or fever(s) Eyes Eyes: Denies blurry vision, change in eye color or change in vision ENT HEENT: Denies abnormal hearing, dysphagia or nasal congestion Cardiovascular Cardiovascular: Denies chest pain, lightheadedness or palpitations Respiratory/Chest Respiratory/Chest: Denies cough, productive cough or shortness of breath at rest Gastrointestinal Gastrointestinal: Reports abdominal pain; Denies diarrhea or dyspepsia Genitourinary Genitourinary: Reports burning urination, difficulty urinating, dysuria and hematuria Musculoskeletal Musculoskeletal: Reports arthralgias, back pain and joint pain Neurologic Neurologic: Reports abnormal gait and focal weakness; Denies confusion Psychiatric Psychiatric: Denies anxiety or depression Endocrine Endocrinology: Denies change in body appearance Hematologic/Lymphatic Hematologic/Lymphatic: Denies anemia, easy bleeding or easy bruising Allergic/Immunologic Allergic/Immunologic: Denies rhinitis or hives Vital Signs Vital Signs Vital Signs: 08/17/24 17:26 08/17/24 19:25 08/17/24 20:53 Temperature 97.3 F L 98.3 F Temperature Source Temporal Pulse Rate 81 78 77 Respiratory Rate 18 16 18 Blood Pressure 135/75 H 116/71 114/70 Blood Pressure Mean 95 86 84 Pulse Ox 94 95 94 Oxygen Delivery Method Room Air Room Air Weight Weight: 97 kg Body Mass Index (BMI) 34.4 Physical Exam Const alert and oriented x3 General Appearance: cooperative Orientation / Consciousness: lethargic HEENT normocephalic and head/scalp atraumatic Eyes PERRL and EOMs intact bilaterally Neck no lymphadenopathy Resp normal respiratory effort, no retractions and clear to auscultation bilaterally Cardio regular rate, regular rhythm and no murmurs GI normal to inspection, nondistended, normoactive bowel sounds, soft to palpation and non-tender Extremity normal to inspection Neuro oriented x3 Psych affect normal Results Lab / Micro Data 08/17/24 18:15 08/17/24 18:15 Labs: Laboratory Results - last 24 hr 08/17/24 18:15: WBC 18.0 H, RBC 5.22, Hgb 14.4, Hct 43.9, MCV 84.1, MCH 27.6, MCHC 32.8, RDW Std Deviation 41.8, RDW Coeff of Kay 13.7, Plt Count 273, MPV 9.4, Immature Gran % (Auto) 0.600, Neut % (Auto) 75.8 H, Lymph % (Auto) 13.4 L, Mccormick % (Auto) 9.0, Eos % (Auto) 0.6, Baso % (Auto) 0.6, Absolute Neuts (auto) 13.7 H, Absolute Lymphs (auto) 2.40, Nucleated RBC % 0, Sodium 138, Potassium 3.8, Chloride 99, Carbon Dioxide 26.9, Anion Gap 12, BUN 11, Creatinine 0.69 L, Estim Creat Clear Calc 86.98, Est GFR (MDRD) Non-Af 97, BUN/Creatinine Ratio 16.0, Glucose 135 H, Calcium 9.3 08/17/24 18:50: Urine Color Yellow, Urine Clarity Sl. Cloudy, Urine pH 6.0, Ur Specific [place] 1.010, Urine Protein 30 H, Urine Glucose (UA) Normal, Urine Ketones Negative, Urine Occult Blood 150 H, Urine Nitrite Positive H, Urine Bilirubin Negative, Urine Urobilinogen Normal, Ur Leukocyte Esterase 500 H, Urine RBC 5-10 SEEN, Urine WBC 50-100 SEEN, Ur Squamous Epith Cells 0 SEEN, Urine Bacteria 2+, Urine Mucus 0 SEEN Imaging Radiology Impression Abdomen/Pelvis CT 08/17/24 18:32 IMPRESSION: 1. No acute abdominopelvic finding. 2. Mild circumferential bladder wall thickening, likely secondary to incomplete bladder distention. Correlation with urinalysis recommended. 3. Mild cardiomegaly with aortic valvular and coronary artery calcifications. One or more dose reduction techniques were used (e.g., Automated exposure control, adjustment of the mA and/or kV according to patient size, use of iterative reconstruction technique). Reading Location: [facility] Forearm X-Ray 08/17/24 18:57 IMPRESSION: No acute fracture. Reading Location: [facility] Humerus X-Ray 08/17/24 18:57 IMPRESSION: No acute fracture. Reading Location: [facility] Assessment & Plan Assessment/Plan (1) Acute UTI: PLAN: 1. Acute UTI with leukocytosis - worsening symptoms since saturday. today with leukocytosis 18k, + UA with nitrites, leuk est, 2+ bacteria, 50-100 wbcs, CT abdomen with bladder wall thickening. Prior culture with Aerococcus sanguinicola too fastidious too culture, with patient recently being on a course of amoxicillin and keflex for UTIs. Will start zosyn. Request echo due to recurrent infections. Urine culture pending. Repeat CBC / CMP in am. 2. Generalized weakness worsening 2/2 #1 complicated by left sided hemiplegia 2/2 old TBI. PTOT evals ordered. Recent fall with xrays left arm negative for acute fracture. tylenol prn pain. 3. T2DM - resume home basal insulin therapy. sliding scale insulin ordered with accuchecks, diabetic diet ordered 4. BPH - with chronic voiding issues, probably contributing to #1, follow up with outpatient urology Dr. [place] continue synthroid 5. Hypothyroidism - continue synthroid 6. Hx COPD - no exacerbation at this time. prn aerosols. 7. Hx HLD - continue statin therapy DVT ppx: lovenox This patient was seen by Anton Corbett PA-C under the supervision of Doctor Villalobos. (2) Generalized weakness:
[2024-08-17 22:24] VITALS: BMI 34.4
[2024-08-17 22:30] LABS: Anisocytosis 1+; Atypical Lymphocyte 1+ %; Burr Cells 1+; Pathologist Review May foll; Platelet Morphology CLUMPED
[2024-08-17 22:43] VITALS: BP 113/66; PULSE 78; RESP 16; TEMP 37.3; O2SAT 95
[2024-08-17] MEDS: 0.9% Saline Lock 10 ML Syringe IV (22:58)
[2024-08-17] MEDS: Acetaminophen 325 MG Tablet 650 MG PO (22:58)
[2024-08-17] MEDS: Piperacil/Tazobactam 3.375 GM in 0.9% Normal Saline (50mL MB+) 50 ML IV (22:58)
[2024-08-17] MEDS: 0.9% Normal Saline (100mL Bag) 100 ML 15 ML IV (22:58)
[2024-08-17 23:29] LABS: Bedside Glucose 138 mg/dL (74-106)
[2024-08-18] MEDS: Piperacil/Tazobactam 3.375 GM in 0.9% Normal Saline (50mL MB+) 50 ML IV ×3 (05:05→21:52)
[2024-08-18] MEDS: Menthol/Lanolin/Calamine/Znox 113 GM Tube 1 APPLIC TOPICAL ×3 (05:10→21:53)
[2024-08-18] MEDS: Nystatin Powder 15gm Bottle 1 APPLIC TOPICAL ×3 (05:10→21:52)
[2024-08-18 05:18] VITALS: BP 132/60; PULSE 68; RESP 16; TEMP 37.2; O2SAT 92
[2024-08-18] MEDS: Levothyroxine 50 MCG Tablet PO (06:34)
[2024-08-18] MEDS: Acetaminophen 325 MG Tablet 650 MG PO (06:34)
[2024-08-18 06:54] LABS: Absolute Lymphocyte Count 1.92 X10^3/uL (0.83-4.51); Basophil# 0.09 X10^3/uL; Basophil% 0.6 % (0-1); Eosinophil# 0.09 X10^3/uL; Eosinophils% 0.6 % (0-5); Hematocrit 41.6 % (40-54); Hemoglobin 13.6 g/dL (13.0-16.5); Lymphocyte # 1.92 X10^3/ul (0.83-4.51); Lymphocyte % 12.4 % (19-41); Mean Corp Hgb Conc 32.7 g/dL (32-36); Mean Corpuscular Hgb 27.6 pg (27.0-32.0); Mean Corpuscular Volume 84.4 fL (80-94); Mean Platelet Vol. 9.3 fl (6.2-12.0); Monocyte# 1.38 X10^3/uL; Monocyte% 8.9 % (0-10); NRBC Flagged by Analyzer 0 % (0-5); Neutrophil # 11.97 X10^3/uL (2.7-7.7); Platelet Count 253 K/mm3 (150-450); RBC Distribution Width CV 13.7 % (11.6-14.6); RBC Distribution Width SD 42.1 fl (35.1-43.9); Red Blood Count 4.93 M/mm3 (4.6-6.2); White Blood Count 15.5 K/mm3 (4.4-11.0)
[2024-08-18 07:16] LABS: Bedside Glucose 145 mg/dL (74-106)
[2024-08-18 08:04] LABS: ALB/GLOB Ratio 1.2 RATIO (0.9-2.4); AST(SGOT) 19 U/L (<=37); Alanine Aminotransfer ALT/SGPT 13 U/L (<=46); Albumin, Serum 3.5 g/dL (3.4-4.8); Alkaline Phosphatase 84 U/L (40-129); Anion Gap 12 (5-15); BUN 10 mg/dL (4-19); BUN/Creat Ratio 14.5 RATIO (10-20); Calcium,Total 8.9 mg/dL (7.6-11.0); Carbon Dioxide 25.5 mmol/L (21.0-32.0); Chloride 102 mmol/L (98-108); Creatinine, Serum 0.68 mg/dL (0.70-1.20); EST Glomerular Filtration Rate 97 (>60); Glucose 143 mg/dL (70-99); Potassium 3.5 mmol/L (3.3-5.1); Protein, Total 6.5 g/dL (5.9-8.4); Sodium Level 139 mmol/L (133-145); Total Bilirubin 0.93 mg/dL (0.00-1.30)
[2024-08-18 08:13] LABS: Hemoglobin A1c 6.6 % (<=5.6)
--- NOTE | 2024-08-18 08:37 | PCM.PN.HOSP ---
Reason for Visit Reason for Visit: Diagnoses Urinary tract infection, site not specified (08/17/24) Weakness (08/17/24) Subjective Subjective Sitting up resting in chair, feeling still weak overall but slightly better, feels he is able to urinate better as well Objective Data Objective Data Vital Signs: Vital Signs Temp Pulse Resp BP Pulse Ox O2 Del Method 99 F 68 16 132/60 H 92 Room Air 08/18/24 05:18 08/18/24 05:18 08/18/24 05:18 08/18/24 05:18 08/18/24 05:18 08/18/24 05:18 Oxygen Delivery Method Room Air Weight: 93.848 kg Body Mass Index (BMI) 34.4 Intake & Output: Intake and Output for Last 24 Hours 08/17/24 08/17/24 08/18/24 00:59 23:59 23:59 Intake Total 50 / 50 81.75 / 81.75 Output Total 300 / 300 300 / 300 Balance -250 / -250 -218.25 / -218.25 Lab / Micro Data 08/18/24 06:05 08/18/24 06:05 Labs: Laboratory Results - last 24 hr 08/17/24 18:15: WBC 18.0 H, RBC 5.22, Hgb 14.4, Hct 43.9, MCV 84.1, MCH 27.6, MCHC 32.8, RDW Std Deviation 41.8, RDW Coeff of Kay 13.7, Plt Count 273, MPV 9.4, Immature Gran % (Auto) 0.600, Neut % (Auto) 75.8 H, Lymph % (Auto) 13.4 L, Saline % (Auto) 9.0, Eos % (Auto) 0.6, Baso % (Auto) 0.6, Absolute Neuts (auto) 13.7 H, Absolute Lymphs (auto) 2.40, Nucleated RBC % 0, Diff Path Review May foll, Atypical Lymphocytes 1+, Plt Morphology Comment CLUMPED, Anisocytosis 1+, Janel Cells 1+, Sodium 138, Potassium 3.8, Chloride 99, Carbon Dioxide 26.9, Anion Gap 12, BUN 11, Creatinine 0.69 L, Estim Creat Clear Calc 86.98, Est GFR (MDRD) Non-Af 97, BUN/Creatinine Ratio 16.0, Glucose 135 H, Calcium 9.3 08/17/24 18:50: Urine Color Yellow, Urine Clarity Sl. Cloudy, Urine pH 6.0, Ur Specific [place] 1.010, Urine Protein 30 H, Urine Glucose (UA) Normal, Urine Ketones Negative, Urine Occult Blood 150 H, Urine Nitrite Positive H, Urine Bilirubin Negative, Urine Urobilinogen Normal, Ur Leukocyte Esterase 500 H, Urine RBC 5-10 SEEN, Urine WBC 50-100 SEEN, Ur Squamous Epith Cells 0 SEEN, Urine Bacteria 2+, Urine Mucus 0 SEEN 08/17/24 23:10: POC Glucose 138 H 08/18/24 06:05: WBC 15.5 H, RBC 4.93, Hgb 13.6, Hct 41.6, MCV 84.4, MCH 27.6, MCHC 32.7, RDW Std Deviation 42.1, RDW Coeff of Kay 13.7, Plt Count 253, MPV 9.3, Immature Gran % (Auto) 0.500, Neut % (Auto) 77.0 H, Lymph % (Auto) 12.4 L, Saline % (Auto) 8.9, Eos % (Auto) 0.6, Baso % (Auto) 0.6, Absolute Neuts (auto) 12.0 H, Absolute Lymphs (auto) 1.92, Nucleated RBC % 0, Sodium 139, Potassium 3.5, Chloride 102, Carbon Dioxide 25.5, Anion Gap 12, BUN 10, Creatinine 0.68 L, Estim Creat Clear Calc 84.00, Est GFR (MDRD) Non-Af 97, BUN/Creatinine Ratio 14.5, Glucose 143 H, Hemoglobin A1c 6.6, Calcium 8.9, Total Bilirubin 0.93, AST 19, ALT 13, Alkaline Phosphatase 84, Total Protein 6.5, Albumin 3.5, Globulin 3.0, Albumin/Globulin Ratio 1.2 08/18/24 06:36: POC Glucose 145 H Radiography Diagnostic Testing: Radiology Impression Abdomen/Pelvis CT 08/17/24 18:32 IMPRESSION: 1. No acute abdominopelvic finding. 2. Mild circumferential bladder wall thickening, likely secondary to incomplete bladder distention. Correlation with urinalysis recommended. 3. Mild cardiomegaly with aortic valvular and coronary artery calcifications. One or more dose reduction techniques were used (e.g., Automated exposure control, adjustment of the mA and/or kV according to patient size, use of iterative reconstruction technique). Reading Location: [facility] Forearm X-Ray 08/17/24 18:57 IMPRESSION: No acute fracture. Reading Location: [facility] Humerus X-Ray 08/17/24 18:57 IMPRESSION: No acute fracture. Reading Location: [facility] Physical Exam Narrative General: Alert, no apparent distress HEENT: Atraumatic Eyes: Anicteric Neck: Supple Respiratory: Clear to auscultation bilaterally, normal respiratory effort Cardiovascular: Regular rate GI: Soft, nontender, nondistended Extremities: No edema Musculoskeletal: Moving all extremities Neuro: Some baseline deficits Skin: No rashes appreciated Psych: Cooperative Assessment & Plan Assessment/Plan (1) Acute UTI: (2) Generalized weakness: PLAN: Plan # Leukocytosis and suspected acute UTI -UA suspicious for UTI and patient with leukocytosis of 18,[address] abdomen with bladder wall thickening -Patient does have recurrent UTIs and follows with Dr. Schaffer on an outpatient basis with urology -Patient started on Zosyn, previously grew Aerococcus sanguinicola -Depending on organism identified may need ID input -Given patient's recurrent infections are UTI and did not note history of recurrent bacteremia we will hold off on echo as suspect this will be low yield but will monitor closely and reorder if needed # Falls and generalized weakness on top of chronic left hemiplegia secondary to TBI/logging accident -PT/OT -Suspect functional status worsened secondary to underlying infection -Home versus placement depending on patient progress with antibiotic treatment/treatment of underlying infection -Patient did have a fall prior to coming in and left forearm and humeral x-rays no acute process #Hypothyroidism -Continue Synthroid #Type 2 diabetes mellitus -Glucose checks and sliding scale insulin #Chronic BPH with obstruction -Continue home medications #DVT ppx: Lovenox subcu Cici Simons MD Charges/Coding Visit Charges Inpatient E&M: 39436 Subs Hosp L2
[2024-08-18 09:05] VITALS: BP 116/66; PULSE 68; RESP 16; TEMP 36.6; O2SAT 91
[2024-08-18] MEDS: Enoxaparin 40 MG/0.4 ML Syringe SC (09:09)
[2024-08-18] MEDS: Glucerna Shake 120 ML LIQUID PO ×4 (09:12→21:55)
--- NOTE | 2024-08-18 10:30 | CASEMGMT ---
RN CM Face to Face with patient for initial transition planning/care coordination assessment. RN CM introduced self and role at [facility]. Patient sitting in chair, alert and oriented, at bedside. Patient willing to participate in assessment and is able to answer all questions appropriately. Care providers, pharmacy, and demographics verified. Strata:3 PCP: Fiorella Specialists: Karime urologist; Preferred Pharmacy: [facility] Insurance: [facility], MMO Prescription Benefit: yes Living Will/HPOA: none LNOK: Living Arrangements: Patient lives with in a split level home with stair lift between floors. Patient is able to ambulate independently at home, assists with bathing, dressing, and toileting at times. Transportation: DME/HHC: Patient have shower chair, raised toilet, cane, walker, rollator, grab bars, and cpap that he does not use. Patient has been to [facility] and [facility] in the past. Patient has had [facility] in the past. Patient wishes to discharge home, states that patient will need to be able to ambulate and transfer himself. Discuss possible HHC vs SNF at discharge for additional therapy, will monitor progress with therapy. Patient and state they have no further needs or concerns at this time. CM to follow for discharge planning needs that may arise. Disposition Plan: TBD, anticipate HHC vs SNF Juliann ARTHUR, RN, CM
[2024-08-18] MEDS: Insulin Lispro 100 UNIT/ML INSULN.PEN SC ×3 (11:20→22:01)
[2024-08-18 11:31] LABS: Bedside Glucose 213 mg/dL (74-106)
[2024-08-18 15:04] VITALS: BP 107/72; PULSE 80; RESP 18; TEMP 37.1; O2SAT 91
--- NOTE | 2024-08-18 16:24 | CHAPLAIN ---
Type of Pastoral Visit _x__ Initial Visit ___ Follow-up Visit ___ On-call Visit ___ General Patient Visit ___ Spiritual Assessment ___ Family Conference ___ Bereavement ___ Rapid Response ___ Code Blue ___ Other (describe below) Pastoral Care Referral From _x__ Patient ___ Family ___ Nurse ___ Physician ___ General Surgery Physician Assistant ___ [employer] ___ Other (describe below) Sacrament/Intervention _x__ Active listening ___ Anointing ___ Anabaptism ___ Bereavement ___ Communion _x__ Raisa exploration ___ ___ Life review _x__ Prayer ___ Reconciliation ___ Sacrament of Sick _x__ Supportive presence ___ Wedding ___ Other (describe below) Pastoral Comments patient and spouse are in the room; pt states that he has had some improvement since yesterday; gives more details as well; pt is optimistic about getting better and would appreciate a prayer which was given
[2024-08-18] MEDS: Tamsulosin HCl 0.4 MG Capsule PO (16:37)
[2024-08-18 16:57] LABS: Bedside Glucose 195 mg/dL (74-106)
[2024-08-18 21:45] VITALS: BP 117/64; PULSE 74; RESP 18; TEMP 37.2; O2SAT 93
[2024-08-18] MEDS: 0.9% Saline Lock 10 ML Syringe IV (22:01)
[2024-08-18 23:45] LABS: Bedside Glucose 171 mg/dL (74-106)
[2024-08-19] VITALS (7 sets, daily range): BP systolic 108–130; BP diastolic 58–80; PULSE 66–77; RESP 16–20; TEMP 36.3–37.1; O2SAT 91–95
[2024-08-19] MEDS: Piperacil/Tazobactam 3.375 GM in 0.9% Normal Saline (50mL MB+) 50 ML IV ×3 (06:25→22:29)
[2024-08-19] MEDS: Levothyroxine 50 MCG Tablet PO (06:29)
[2024-08-19 07:18] LABS: Absolute Lymphocyte Count 2.29 X10^3/uL (0.83-4.51); Absolute Neutrophil Count 7.7 X10^3/uL (2.0-7.7); Basophil# 0.08 X10^3/uL; Basophil% 0.7 % (0-1); Eosinophil# 0.19 X10^3/uL; Eosinophils% 1.7 % (0-5); Hematocrit 39.9 % (40-54); Hemoglobin 12.9 g/dL (13.0-16.5); Lymphocyte # 2.29 X10^3/ul (0.83-4.51); Lymphocyte % 20.3 % (19-41); Mean Corp Hgb Conc 32.3 g/dL (32-36); Mean Corpuscular Hgb 27.3 pg (27.0-32.0); Mean Corpuscular Volume 84.4 fL (80-94); Mean Platelet Vol. 9.5 fl (6.2-12.0); Monocyte# 0.87 X10^3/uL; Monocyte% 7.7 % (0-10); NRBC Flagged by Analyzer 0 % (0-5); Neutrophil # 7.74 X10^3/uL (2.7-7.7); Neutrophil % 68.8 % (47-70); Platelet Count 256 K/mm3 (150-450); RBC Distribution Width CV 13.6 % (11.6-14.6); Red Blood Count 4.73 M/mm3 (4.6-6.2); White Blood Count 11.3 K/mm3 (4.4-11.0)
--- NOTE | 2024-08-19 08:12 | PN.HOSP_ITS ---
Reason for Visit Reason for Visit: Diagnoses Urinary tract infection, site not specified (08/17/24) Weakness (08/17/24) Subjective Subjective Beginning to feel better, still weak but improved from admission Objective Data Objective Data Vital Signs: Vital Signs Temp Pulse Resp BP Pulse Ox O2 Del Method 98.6 F 77 16 108/58 L 92 Room Air 08/19/24 03:37 08/19/24 03:37 08/19/24 03:37 08/19/24 03:37 08/19/24 03:37 08/19/24 03:37 Oxygen Delivery Method Room Air Weight: 93.848 kg Body Mass Index (BMI) 34.4 Intake & Output: Intake and Output for Last 24 Hours 08/17/24 08/18/24 08/19/24 23:59 23:59 23:59 Intake Total 50 / 50 1541.75 / 1541.75 850 / 850 Output Total 300 / 300 1250 / 1250 700 / 700 Balance -250 / -250 291.75 / 291.75 150 / 150 Lab / Micro Data 08/19/24 06:22 08/19/24 06:22 Labs: Laboratory Results - last 24 hr 08/18/24 06:05: Hemoglobin A1c 6.6 08/18/24 11:13: POC Glucose 213 H 08/18/24 16:35: POC Glucose 195 H 08/18/24 22:01: POC Glucose 171 H 08/19/24 06:22: WBC 11.3 H, RBC 4.73, Hgb 12.9 L, Hct 39.9 L, MCV 84.4, MCH 27.3, MCHC 32.3, RDW Std Deviation 42.0, RDW Coeff of Kay 13.6, Plt Count 256, MPV 9.5, Immature Gran % (Auto) 0.800, Neut % (Auto) 68.8, Lymph % (Auto) 20.3, [place] % (Auto) 7.7, Eos % (Auto) 1.7, Baso % (Auto) 0.7, Absolute Neuts (auto) 7.7, Absolute Lymphs (auto) 2.29, Nucleated RBC % 0 Physical Exam Narrative General: Alert, no apparent distress HEENT: Atraumatic Eyes: Anicteric Neck: Supple Respiratory: Clear to auscultation bilaterally, normal respiratory effort Cardiovascular: Regular rate GI: Soft, nontender, nondistended Extremities: No edema Musculoskeletal: Moving all extremities Neuro: Some baseline deficits Skin: No rashes appreciated Psych: Cooperative Assessment & Plan Assessment/Plan (1) Acute UTI: (2) Generalized weakness: PLAN: Plan # Leukocytosis and suspected acute UTI -UA suspicious for UTI and patient with leukocytosis of 18,[address] abdomen with bladder wall thickening -Patient does have recurrent UTIs and follows with Dr. Schaffer on an outpatient basis with urology -Patient started on Zosyn, previously grew Aerococcus sanguinicola -Depending on organism identified may need ID input -Given patient's recurrent infections are UTI and did not note history of recurrent bacteremia we will hold off on echo as suspect this will be low yield but will monitor closely and reorder if needed -08/19: Continue antibiotics, awaiting culture and sensitivity data # Falls and generalized weakness on top of chronic left hemiplegia secondary to TBI/logging accident -PT/OT -Suspect functional status worsened secondary to underlying infection -Home versus placement depending on patient progress with antibiotic treatment/treatment of underlying infection -Patient did have a fall prior to coming in and left forearm and humeral x-rays no acute process -08/19: Pending clinical status and work with therapy patient will be home with home health versus TCU for safe discharge Chronic medical problems: #Hypothyroidism -Continue Synthroid #Type 2 diabetes mellitus -Glucose checks and sliding scale insulin #Chronic BPH with obstruction -Continue home medications #DVT ppx: Lovenox subcu Cici Simons MD Charges/Coding Visit Charges Inpatient E&M: 66040 [facility] Hosp L1
[2024-08-19 08:13] LABS: Anion Gap 11 (5-15); BUN 11 mg/dL (4-19); Calcium,Total 8.9 mg/dL (7.6-11.0); Carbon Dioxide 25.9 mmol/L (21.0-32.0); Chloride 103 mmol/L (98-108); Creatinine, Serum 0.63 mg/dL (0.70-1.20); EST Glomerular Filtration Rate 99 (>60); Glucose 127 mg/dL (70-99); Potassium 3.6 mmol/L (3.3-5.1); Sodium Level 140 mmol/L (133-145)
[2024-08-19] MEDS: Nystatin Powder 15gm Bottle 1 APPLIC TOPICAL ×2 (08:22→22:33)
[2024-08-19] MEDS: Glucerna Shake 120 ML LIQUID PO ×4 (08:22→22:33)
[2024-08-19] MEDS: Menthol/Lanolin/Calamine/Znox 113 GM Tube 1 APPLIC TOPICAL ×2 (08:22→22:32)
[2024-08-19] MEDS: Enoxaparin 40 MG/0.4 ML Syringe SC (08:24)
[2024-08-19 08:28] LABS: Bedside Glucose 145 mg/dL (74-106)
--- NOTE | 2024-08-19 10:58 | CASEMGMT ---
Social Work- SW met with pt and to discuss acceptance at TCU. Pt and report that they have not seen the physician or therapy, but report that if the recommendation is still to have therapy, that they are agreeable to TCU. SW remains available to follow. Plan: TCU; when medically ready BURT Zuniga
[2024-08-19] MEDS: Insulin Lispro 100 UNIT/ML INSULN.PEN SC ×3 (11:19→22:41)
[2024-08-19 11:42] LABS: Bedside Glucose 190 mg/dL (74-106)
--- NOTE | 2024-08-19 12:40 | NURSING ---
MICA BUILDER documentation reviewed.
--- NOTE | 2024-08-19 16:15 | NURSING ---
All documentation by assistant in nursing Tenisha Renae reviewed by nursing director Estela SPARKSN, RN.
[2024-08-19] MEDS: Tamsulosin HCl 0.4 MG Capsule PO (16:35)
[2024-08-19 17:24] LABS: Bedside Glucose 192 mg/dL (74-106)
[2024-08-19 23:35] LABS: Bedside Glucose 193 mg/dL (74-106)
[2024-08-20 04:19] VITALS: BP 124/58; PULSE 74; RESP 20; TEMP 36.7; O2SAT 92
[2024-08-20] MEDS: Piperacil/Tazobactam 3.375 GM in 0.9% Normal Saline (50mL MB+) 50 ML IV ×2 (06:33→14:31)
[2024-08-20] MEDS: Insulin Lispro 100 UNIT/ML INSULN.PEN SC ×2 (06:36→12:19)
[2024-08-20] MEDS: Levothyroxine 50 MCG Tablet PO (06:37)
[2024-08-20 06:49] LABS: Absolute Lymphocyte Count 2.04 X10^3/uL (0.83-4.51); Absolute Neutrophil Count 4.8 X10^3/uL (2.0-7.7); Basophil# 0.07 X10^3/uL; Basophil% 0.9 % (0-1); Eosinophil# 0.27 X10^3/uL; Eosinophils% 3.4 % (0-5); Hematocrit 41.1 % (40-54); Hemoglobin 13.2 g/dL (13.0-16.5); Lymphocyte # 2.04 X10^3/ul (0.83-4.51); Lymphocyte % 25.6 % (19-41); Mean Corp Hgb Conc 32.1 g/dL (32-36); Mean Corpuscular Hgb 27.2 pg (27.0-32.0); Mean Corpuscular Volume 84.7 fL (80-94); Mean Platelet Vol. 9.2 fl (6.2-12.0); Monocyte# 0.73 X10^3/uL; Monocyte% 9.2 % (0-10); NRBC Flagged by Analyzer 0 % (0-5); Neutrophil # 4.79 X10^3/uL (2.7-7.7); Neutrophil % 60.1 % (47-70); Platelet Count 280 K/mm3 (150-450); RBC Distribution Width CV 13.8 % (11.6-14.6); RBC Distribution Width SD 42.7 fl (35.1-43.9); Red Blood Count 4.85 M/mm3 (4.6-6.2)
[2024-08-20 07:35] LABS: Bedside Glucose 150 mg/dL (74-106)
[2024-08-20 07:54] VITALS: BP 125/75; PULSE 76; RESP 18; TEMP 37; O2SAT 93
[2024-08-20 09:06] LABS: Anion Gap 12 (5-15); BUN 11 mg/dL (4-19); BUN/Creat Ratio 18.1 RATIO (10-20); Calcium,Total 8.8 mg/dL (7.6-11.0); Carbon Dioxide 24.5 mmol/L (21.0-32.0); Chloride 104 mmol/L (98-108); Creatinine, Serum 0.62 mg/dL (0.70-1.20); EST Glomerular Filtration Rate 100 (>60); Glucose 135 mg/dL (70-99); Potassium 3.9 mmol/L (3.3-5.1); Sodium Level 141 mmol/L (133-145)
[2024-08-20] MEDS: Menthol/Lanolin/Calamine/Znox 113 GM Tube 1 APPLIC TOPICAL (09:54)
[2024-08-20] MEDS: Glucerna Shake 120 ML LIQUID PO ×2 (09:55→14:30)
[2024-08-20] MEDS: Nystatin Powder 15gm Bottle 1 APPLIC TOPICAL (09:55)
[2024-08-20] MEDS: Enoxaparin 40 MG/0.4 ML Syringe SC (09:55)
--- NOTE | 2024-08-20 11:04 | CASEMGMT ---
Social Work- SW met with pt and pt spouse to discuss plans for TCU. Pt expressed concerns regarding UTI recurrence and reports that she believed urology would see pt today. SW will follow up with physician in rounds to discuss timeline for discharge. Plan: TCU; skilled level of care BURT Zuniga
[2024-08-20 11:25] LABS: Bedside Glucose 193 mg/dL (74-106)
[2024-08-20 12:14] VITALS: BP 124/73; PULSE 67; RESP 16; TEMP 36.5; O2SAT 92
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
[2024-08-20] MEDS: Phenazopyridine 95 MG Tablet 190 MG PO (14:30)
[2024-08-20] MEDS: 0.9% Saline Lock 10 ML Syringe IV (14:31)
--- NOTE | 2024-08-20 14:54 | CASEMGMT ---
Social Work Physician feels that pt is ready for discharge today.?SW met with pt and they are agreeable to discharge plan as stated above.? Pt and bedside nurse notified of discharge. SW faxed discharge to TCU admissions. Disposition:TCU, skilled level of care under convalescent stay. BURT Zuniga
== END 2024-08-20 15:56 | disposition skilled nursing facility (03) | DRG 690 ==
LOC: ED 20:26 → MS3 21:58
PROVIDERS: Admitting Provider Physician Assistant; Emergency Provider Emergency Medicine; PCP Internal Medicine; Visit Provider Internal Medicine
DX: N30.01 Acute cystitis with hematuria (principal); G81.94 Hemiplegia, unspecified affecting left nondominant side; E11.9 Type 2 diabetes mellitus without complications; E03.9 Hypothyroidism, unspecified; E78.5 Hyperlipidemia, unspecified; B96.20 Unspecified Escherichia coli [E. coli] as the cause of diseases classified elsewhere; Z66 Do not resuscitate; J44.9 Chronic obstructive pulmonary disease, unspecified; Z79.4 Long term (current) use of insulin; N40.1 Benign prostatic hyperplasia with lower urinary tract symptoms; N13.8 Other obstructive and reflux uropathy; R29.6 Repeated falls; R53.1 Weakness; Z79.84 Long term (current) use of oral hypoglycemic drugs; Z79.890 Hormone replacement therapy; Z79.899 Other long term (current) drug therapy; Z87.440 Personal history of urinary (tract) infections; Z87.820 Personal history of traumatic brain injury
CPT/HCPCS: 36415; 73060; 73090; 74176; 80048; 80053; 81001; 82962; 83036; 85025; 87086; 87088; 87186; 97162; 97166; 97530; 97535; 99284; A4216

== ENCOUNTER 2024-08-20 16:03 | Inpatient (IN) | payer MEDICARE, OTHER, SELFPAY ==
[2024-08-20 16:21] VITALS: BP 137/72; PULSE 68; RESP 14; TEMP 35.9; O2SAT 94; BMI 34.9
--- NOTE | 2024-08-20 16:46 | US_ITS ---
PROCEDURE: HEAD/NECK SOFT TISSUE REASON FOR EXAM: EDEMA COMPARISON: None. TECHNIQUE: Sonogram of the left lower neck was performed in the area of swelling. FINDINGS: No focal mass is seen within the area of clinical concern. No abnormal solid or cystic structure is seen. US/Head/Neck Soft Tissue IMPRESSION: No focal masses seen within the area of clinical concern. Further evaluation w ith MR or CT may be helpful if clinically indicated. Reading Location: [id number]
[2024-08-20 18:03] LABS: Bedside Glucose 143 mg/dL (74-106)
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
[2024-08-20] MEDS: Nystatin Powder 15gm Bottle 1 APPLIC TOPICAL (20:45)
[2024-08-20] MEDS: Phenazopyridine 95 MG Tablet 190 MG PO (20:46)
[2024-08-20] MEDS: metFORMIN HCl 500 MG Tablet PO (20:47)
[2024-08-20] MEDS: Ciprofloxacin 500 MG Tablet PO (20:47)
[2024-08-20] MEDS: Tamsulosin HCl 0.4 MG Capsule PO (20:47)
[2024-08-20] MEDS: Senna/Docusate Sodium 1 Tablet PO (20:51)
[2024-08-20] MEDS: Menthol/Lanolin/Calamine/Znox 113 GM Tube 1 APPLIC TOPICAL (20:52)
[2024-08-21] MEDS: Nystatin Powder 15gm Bottle 1 APPLIC TOPICAL ×2 (05:37→21:41)
[2024-08-21] MEDS: Enoxaparin 40 MG/0.4 ML Syringe SC (05:38)
[2024-08-21] MEDS: Levothyroxine 50 MCG Tablet PO (05:38)
[2024-08-21] MEDS: Phenazopyridine 95 MG Tablet 190 MG PO ×3 (05:38→21:35)
[2024-08-21 05:53] LABS: Absolute Lymphocyte Count 1.91 X10^3/uL (0.83-4.51); Absolute Neutrophil Count 4.1 X10^3/uL (2.0-7.7); Basophil# 0.07 X10^3/uL; Eosinophils% 5.5 % (0-5); Hematocrit 41.7 % (40-54); Hemoglobin 13.3 g/dL (13.0-16.5); Lymphocyte # 1.91 X10^3/ul (0.83-4.51); Lymphocyte % 26.1 % (19-41); Mean Corp Hgb Conc 31.9 g/dL (32-36); Mean Corpuscular Hgb 27.3 pg (27.0-32.0); Mean Corpuscular Volume 85.6 fL (80-94); Mean Platelet Vol. 8.7 fl (6.2-12.0); Monocyte# 0.75 X10^3/uL; Monocyte% 10.2 % (0-10); NRBC Flagged by Analyzer 0 % (0-5); Neutrophil # 4.14 X10^3/uL (2.7-7.7); Neutrophil % 56.4 % (47-70); Platelet Count 286 K/mm3 (150-450); RBC Distribution Width CV 13.9 % (11.6-14.6); RBC Distribution Width SD 43.4 fl (35.1-43.9); Red Blood Count 4.87 M/mm3 (4.6-6.2); White Blood Count 7.3 K/mm3 (4.4-11.0)
[2024-08-21 06:25] LABS: Bedside Glucose 140 mg/dL (74-106)
[2024-08-21 07:05] LABS: Anion Gap 11 (5-15); BUN 9 mg/dL (4-19); BUN/Creat Ratio 17.9 RATIO (10-20); Calcium,Total 9.1 mg/dL (7.6-11.0); Carbon Dioxide 25.9 mmol/L (21.0-32.0); Chloride 105 mmol/L (98-108); Creatinine, Serum 0.52 mg/dL (0.70-1.20); EST Glomerular Filtration Rate 105 (>60); Estimated Creatinine Clearance 83.08 ml/min (50-250); Glucose 136 mg/dL (70-99); Sodium Level 142 mmol/L (133-145)
[2024-08-21] MEDS: metFORMIN HCl 500 MG Tablet PO ×2 (09:35→17:18)
[2024-08-21] MEDS: Senna/Docusate Sodium 1 Tablet PO ×2 (09:35→21:37)
[2024-08-21] MEDS: Tuberculin,Purif.prot.deriv. 50 TU/ML Vial 0.1 ML ID (09:35)
[2024-08-21] MEDS: Ciprofloxacin 500 MG Tablet PO ×2 (09:35→21:36)
[2024-08-21] MEDS: Cyanocobalamin 500 MCG Tablet 1000 MCG PO (09:36)
[2024-08-21] MEDS: Menthol/Lanolin/Calamine/Znox 113 GM Tube 1 APPLIC TOPICAL ×2 (09:36→21:40)
--- NOTE | 2024-08-21 10:49 | NURSING ---
Excellence Coach Note; Activity Asset: Eric Simeon is independent in his choice of daily activities. His will visit daily and has brought items from home for him. He has crossword puzzles, enjoys jigsaw puzzles, tv and visiting with family. He welcomes visits from the opthalmic tech when available. Staff will remind him of weekly activities and respect his right to say no.
[2024-08-21 15:42] VITALS: BP 118/65; PULSE 66; RESP 16; TEMP 36.3; O2SAT 92
--- NOTE | 2024-08-21 15:55 | CASEMGMT ---
Social Work SW met with pt to complete initial assessment. Introduced self and role of SW. Contact information was verified and updated in system. Pt confirmed code status as DNRCCA, no intubation. Pt does not have advance directives in place and declined SW offer to assist completing them during admission. SW educated pt to Medicare benefit and copay coverage. Encouraged to contact secondary insurance to ensure copay coverage. Pt's goal is to return to his home with at time of discharge. Pt's is available to assist as needed. SW will continue to follow for discharge planning. BURT Robles
[2024-08-21 16:46] LABS: Bedside Glucose 158 mg/dL (74-106)
[2024-08-21 19:35] VITALS: PULSE 82; RESP 16; O2SAT 92
[2024-08-21] MEDS: Tamsulosin HCl 0.4 MG Capsule PO (21:36)
[2024-08-21] MEDS: Atorvastatin Calcium 10 MG Tablet PO (21:36)
[2024-08-22] MEDS: Enoxaparin 40 MG/0.4 ML Syringe SC (04:49)
[2024-08-22] MEDS: Phenazopyridine 95 MG Tablet 190 MG PO ×3 (04:49→20:49)
[2024-08-22] MEDS: Levothyroxine 25 MCG TABLET PO (04:57)
[2024-08-22] MEDS: Nystatin Powder 15gm Bottle 1 APPLIC TOPICAL ×2 (04:58→20:48)
[2024-08-22 05:05] VITALS: RESP 16
[2024-08-22 05:55] LABS: Bedside Glucose 134 mg/dL (74-106)
[2024-08-22 08:20] VITALS: BP 131/74; PULSE 71; RESP 16; TEMP 36.5; O2SAT 90
[2024-08-22] MEDS: Cyanocobalamin 500 MCG Tablet 1000 MCG PO (08:23)
[2024-08-22] MEDS: Menthol/Lanolin/Calamine/Znox 113 GM Tube 1 APPLIC TOPICAL ×2 (08:23→20:48)
[2024-08-22] MEDS: Ciprofloxacin 500 MG Tablet PO ×2 (08:23→20:48)
[2024-08-22] MEDS: metFORMIN HCl 500 MG Tablet PO ×2 (08:23→17:38)
--- NOTE | 2024-08-22 09:58 | PHA.CONS_ITS ---
Documented by User: Gene Paige 08/22/24 10:12 TCU RX Drug Regimen Review Subjective/Objective Subjective/Objective Subjective: TCU admission note. 74 year old male with below past medical history hospitalized for weakness/fall 2/2 urinary tract infection, complicated by left arm pain (fracture ruled out), recurrent urinary tract infection, bph, urinary incontinence, admitted to TCU with debility, here for rehabilitation, strengthening, prior to discharge home with . Objective: Allergies No Known Allergies Allergy (Verified 08/17/24 17:26) Current Medications Generic Name Dose Route Start Last Admin Trade Name Freq PRN Reason Stop Dose Admin Acetaminophen 1,000 mg 08/20/24 19:48 Acetaminophen 500 Mg Tablet PO Q6H PRN PRN Pain Score 1-10 Atorvastatin Calcium 10 mg 08/21/24 22:00 08/21/24 21:36 Atorvastatin Calcium 10 Mg Tablet PO 10 mg MOWEFR MIA Administration Calamine/Phenol 1 applic 08/20/24 22:00 08/22/24 08:23 Menthol/Lanolin/Calamine/Znox 113 Gm Tube TOPICAL 1 applic BID MIA Administration Protocol Ciprofloxacin HCl 500 mg 08/20/24 22:00 08/22/24 08:23 Ciprofloxacin 500 Mg Tablet PO 08/24/24 22:01 500 mg BID MIA Administration Cyanocobalamin 1,000 mcg 08/21/24 10:00 08/22/24 08:23 Cyanocobalamin 500 Mcg Tablet PO 1,000 mcg DAILY MIA Administration Enoxaparin Sodium 40 mg 08/21/24 06:00 08/22/24 04:49 Enoxaparin 40 Mg/0.4 Ml Syringe SC 40 mg DAILY@0600 MIA Administration Levothyroxine Sodium 25 mcg 08/22/24 06:00 08/22/24 04:57 Levothyroxine 25 Mcg Tablet PO 25 mcg SUSA MIA Administration Levothyroxine Sodium 50 mcg 08/21/24 06:00 08/21/24 05:38 Levothyroxine 50 Mcg Tablet PO 50 mcg MOTUWETHFR MIA Administration Magnesium Citrate 300 ml 08/20/24 19:47 Magnesium Citrate 300 Ml PO DAILY PRN Constipation Metformin HCl 500 mg 08/21/24 08:00 08/22/24 08:23 Metformin Hcl 500 Mg Tablet PO 500 mg BID@0800,1600 MIA Administration Nystatin 1 applic 08/20/24 22:00 08/22/24 04:58 Nystatin Powder 15gm Bottle TOPICAL 1 applic 0600,2200 [facility] Administration Protocol Phenazopyridine HCl 190 mg 08/20/24 22:00 08/22/24 04:49 Phenazopyridine 95 Mg Tablet PO 08/24/24 14:01 190 mg TID MIA Administration Senna/Docusate Sodium 1 tablet 08/20/24 22:00 08/22/24 08:25 Senna/Docusate Sodium 1 Tablet PO Not Given BID MIA Sodium Chloride 10 - 40 ml 08/20/24 16:26 0.9% Saline Lock 10 Ml Syringe IV UD PRN SALINE FLUSH Tamsulosin HCl 0.4 mg 08/20/24 22:00 08/21/24 21:36 Tamsulosin Hcl 0.4 Mg Capsule PO 0.4 mg QHS MIA Administration Tuberculin PPD 0.1 ml 08/28/24 10:00 Tuberculin,Purif.Prot.Deriv. 50 Tu/Ml Vial ID 08/28/24 10:01 X1 ONE Problem List HLD (hyperlipidemia) (Acute) Type 2 diabetes mellitus with hyperglycemia (Acute) COPD (chronic obstructive pulmonary disease) (Chronic) BPH (benign prostatic hyperplasia) (Acute) Overactive bladder (Acute) Left hemiplegia (Acute) Left arm pain (Acute) Debility (Acute) UTI (urinary tract infection) (Acute) Traumatic brain injury (Acute) Hypothyroidism (Chronic) Vital Signs Temp Pulse Resp BP Pulse Ox O2 Del Method 97.7 F L 71 16 131/74 H 90 Room Air 08/22/24 08:20 08/22/24 08:20 08/22/24 08:20 08/22/24 08:20 08/22/24 08:20 08/22/24 08:20 Oxygen Delivery Method Room Air Weight: 95.254 kg Body Mass Index (BMI) 34.9 Sodium 142 mmol/L (133-145) 08/21/24 05:22 Potassium 4.0 mmol/L (3.3-5.1) 08/21/24 05:22 Chloride 105 mmol/L (98-108) 08/21/24 05:22 Carbon Dioxide 25.9 mmol/L (21.0-32.0) 08/21/24 05:22 Anion Gap 11 (5-15) 08/21/24 05:22 BUN 9 mg/dL (4-19) 08/21/24 05:22 Creatinine 0.52 mg/dL (0.70-1.20) L 08/21/24 05:22 Est GFR (MDRD) Non-Af 105 (>60) 08/21/24 05:22 BUN/Creatinine Ratio 17.9 RATIO (10-20) 08/21/24 05:22 Glucose 136 mg/dL (70-99) H 08/21/24 05:22 Assessment/Plan: 1. Pain: acetaminophen 1000 mg PO Q6H PRN pain (1-10). The patient has not required any PRN doses of acetaminophen so far this admission. Please continue to monitor pain levels, PRN medication usage, and LFTs (AST/ALT = 19/13 U/L on 08/18/24). 2. Bowel: senna/docusate 1 tablet Po BID, magnesium citrate 300 mL PO daily PRN constipation. The patient has not required any PRN magnesium citrate so far this admission and his last documented bowel movement was on 08/21/24. Please continue to monitor for bowel movements, PRN medication usage, constipation and diarrhea. 3. DVT prophylaxis: enoxaparin 40 mg SC daily. Please continue to monitor for s/s of a DVT such as pain/erythema/edema in an extremity, for s/s of bleeding/excessive bruising, hemoglobin levels (Hgb = 13.3 g/dL on 08/21/24), platelet counts (Plt = 286 K/mm3 on 08/21/24), and renal function (serum creatinine = 0.52 mg/dL with creatinine clearance ~ 83 mL/min on 08/21/24). 4. E coli UTI: ciprofloxacin 500 mg PO BID through 08/24/24, phenazopyridine 190 mg PO TID through 08/24/24. Please continue to monitor for s/s of UTI such as dysuria, frequency, urgency, discolored urine, renal function (serum creatinine = 0.52 mg/dL with creatinine clearance ~ 83 mL/min on 08/21/24), agitation, glucose levels (BG = 136 mg/dL on 08/21/24), potassium levels (K = 4.0 mmol/L on 08/21/24), and for diarrhea that could indicate clostridium difficile infection. 5. Hypothyroidism: levothyroxine 50 mcg PO 5 days/week, levothyroxine 25 mcg PO 2 days/week. Please continue to monitor thyroid function (no recent thyroid hormone tests documented), and for s/s of hypo/hyperthyroidism. 6. Diabetes Mellitus II: metformin 500 mg PO BID. Please continue to monitor BG levels (recent range = 134-193 mg/dL), renal function (serum creatinine = 0.52 mg/dL with GFR ~ 105 mL/min on 08/21/24), A1C levels (A1C = 6.6% on 08/18/24), for GI distress, and vitamin B12 levels (no recent B12 level documented). 7. Hyperlipidemia: atorvastatin 10 mg PO MOWEFR. Please continue to monitor lipid panel (no recent lipid panel documented), LFTs (AST/ALT = 19/13 U/L on 08/18/24), and for myalgias. 8. BPH: tamsulosin 0.4 mg PO QHS. Please continue to monitor for urinary incontinence, urinary retention, and for s/s of orthostasis. 9. Vitamin B12 deficiency: cyanocobalamin 1000 mcg Po daily. Please continue to monitor vitamin B12 levels (no recent vitamin B12 level documented), as well as for s/s of vitamin B12 deficiency 10. Tinea corporis/skin irritation: calmoseptine 1 application topically BID, nystatin 1 application topically BID. Please continue to monitor for resolution of tinea corporis and for skin irritation/skin integrity. Assessment/Plan for indications treated with psychotropic medications: NA Medical chart and medication regimen reviewed. The following medication irregularities or issues were identified: NA Date Date of Note: 08/22/24 Documented by User: Dr. Greg Vigil MD 08/23/24 09:06 TCU RX Drug Regimen Review Provider Comments Provider responsibility Provider Comments to Recommendations by Pharmacy Agree
[2024-08-22 16:30] LABS: Bedside Glucose 143 mg/dL (74-106)
[2024-08-22] MEDS: Acetaminophen 500 MG Tablet 1000 MG PO (20:47)
[2024-08-22] MEDS: Tamsulosin HCl 0.4 MG Capsule PO (20:48)
[2024-08-22] MEDS: Senna/Docusate Sodium 1 Tablet PO (20:48)
[2024-08-23] MEDS: Phenazopyridine 95 MG Tablet 190 MG PO ×3 (05:27→21:56)
[2024-08-23] MEDS: Enoxaparin 40 MG/0.4 ML Syringe SC (05:28)
[2024-08-23] MEDS: Nystatin Powder 15gm Bottle 1 APPLIC TOPICAL ×2 (05:28→21:56)
[2024-08-23] MEDS: Levothyroxine 25 MCG TABLET PO (05:29)
[2024-08-23 05:36] VITALS: PULSE 86; RESP 18; O2SAT 91
[2024-08-23 06:35] LABS: Bedside Glucose 153 mg/dL (74-106)
[2024-08-23 08:47] VITALS: BP 106/59; PULSE 68; RESP 16; TEMP 36.3; O2SAT 90
[2024-08-23] MEDS: Menthol/Lanolin/Calamine/Znox 113 GM Tube 1 APPLIC TOPICAL ×2 (08:50→21:57)
[2024-08-23] MEDS: metFORMIN HCl 500 MG Tablet PO ×2 (08:50→17:06)
[2024-08-23] MEDS: Ciprofloxacin 500 MG Tablet PO ×2 (08:51→21:58)
[2024-08-23] MEDS: Cyanocobalamin 500 MCG Tablet 1000 MCG PO (08:51)
[2024-08-23] MEDS: Senna/Docusate Sodium 1 Tablet PO ×2 (10:11→21:56)
[2024-08-23 17:18] LABS: Bedside Glucose 186 mg/dL (74-106)
[2024-08-23] MEDS: Tamsulosin HCl 0.4 MG Capsule PO (21:58)
[2024-08-24] MEDS: Enoxaparin 40 MG/0.4 ML Syringe SC (05:41)
[2024-08-24] MEDS: Nystatin Powder 15gm Bottle 1 APPLIC TOPICAL ×2 (05:42→21:40)
[2024-08-24] MEDS: Phenazopyridine 95 MG Tablet 190 MG PO ×2 (05:42→14:07)
[2024-08-24] MEDS: Levothyroxine 50 MCG Tablet PO (05:46)
[2024-08-24 06:11] VITALS: PULSE 71; RESP 16; O2SAT 93
[2024-08-24 06:44] LABS: Bedside Glucose 149 mg/dL (74-106)
[2024-08-24 09:18] VITALS: BP 110/57; PULSE 72; RESP 16; TEMP 36.4; O2SAT 91
[2024-08-24] MEDS: metFORMIN HCl 500 MG Tablet PO ×2 (09:21→16:20)
[2024-08-24] MEDS: Ciprofloxacin 500 MG Tablet PO ×2 (09:21→21:39)
[2024-08-24] MEDS: Senna/Docusate Sodium 1 Tablet PO ×2 (09:21→21:39)
[2024-08-24] MEDS: Menthol/Lanolin/Calamine/Znox 113 GM Tube 1 APPLIC TOPICAL ×2 (09:22→21:41)
[2024-08-24] MEDS: Cyanocobalamin 500 MCG Tablet 1000 MCG PO (09:22)
--- NOTE | 2024-08-24 09:24 | NURSING ---
dr nunes office called for consult, dr nunes out until 08/27/24, will notify again that morning.
--- NOTE | 2024-08-24 10:23 | NURSING ---
Offered covid vaccine, VIS provided. Resident declines at this time.
[2024-08-24 17:03] LABS: Bedside Glucose 186 mg/dL (74-106)
[2024-08-24] MEDS: Atorvastatin Calcium 10 MG Tablet PO (21:39)
[2024-08-24] MEDS: Tamsulosin HCl 0.4 MG Capsule PO (21:40)
[2024-08-25 06:25] LABS: Bedside Glucose 149 mg/dL (74-106)
[2024-08-25] MEDS: Levothyroxine 50 MCG Tablet PO (06:25)
[2024-08-25] MEDS: Enoxaparin 40 MG/0.4 ML Syringe SC (06:25)
[2024-08-25] MEDS: Nystatin Powder 15gm Bottle 1 APPLIC TOPICAL ×2 (06:25→20:26)
[2024-08-25 06:35] VITALS: PULSE 74; O2SAT 91
--- NOTE | 2024-08-25 08:15 | NURSING ---
Attempted to call urology consult yesterday, Dr. Mendez off until of this week. Nursing to follow-up .
[2024-08-25 08:44] VITALS: BP 114/57; PULSE 74; RESP 16; TEMP 36.6; O2SAT 90
[2024-08-25] MEDS: metFORMIN HCl 500 MG Tablet PO ×2 (08:50→17:24)
[2024-08-25] MEDS: Menthol/Lanolin/Calamine/Znox 113 GM Tube 1 APPLIC TOPICAL ×2 (08:51→20:26)
[2024-08-25] MEDS: Cyanocobalamin 500 MCG Tablet 1000 MCG PO (08:51)
--- NOTE | 2024-08-25 15:01 | CASEMGMT ---
Social Work SW completed BIMS () and PHQ-2 () completed for MDS assessment. Talia Owusu SALES SERVICE SUPERVISOR MEDICATION RECONCILIATION TECHNICIAN
--- NOTE | 2024-08-25 15:18 | CHAPLAIN ---
Type of Pastoral Visit _x__ Initial Visit ___ Follow-up Visit ___ On-call Visit ___ General Patient Visit ___ Spiritual Assessment ___ Family Conference ___ Bereavement ___ Rapid Response ___ Code Blue ___ Other (describe below) Pastoral Care Referral From _x__ Patient ___ Family ___ Nurse ___ Physician ___ Documentation Coordinator ___ Youth Advocate ___ Other (describe below) Sacrament/Intervention _x__ Active listening ___ Anointing ___ Mandaen ___ Bereavement ___ Communion ___ Raisa exploration ___ ___ Life review _x__ Prayer ___ Reconciliation ___ Sacrament of Sick ___ Supportive presence ___ Wedding ___ Other (describe below) Pastoral Comments follow up visit to this patient that was seen last week in [facility]; pt is sitting up in the chair and is next to him; pt is asked questions about how he is feeling, coping, and thoughts about the future; pt answers them pretty well but is a little slow in processing; pt acknowledges that he is not missing anything while in the hospital but that he would like to be home, just because I would like that; both welcome prayer for support today
[2024-08-25 16:25] LABS: Bedside Glucose 175 mg/dL (74-106)
[2024-08-25] MEDS: Senna/Docusate Sodium 1 Tablet PO (20:25)
[2024-08-25] MEDS: Tamsulosin HCl 0.4 MG Capsule PO (20:26)
[2024-08-26] MEDS: Levothyroxine 50 MCG Tablet PO (05:18)
[2024-08-26] MEDS: Nystatin Powder 15gm Bottle 1 APPLIC TOPICAL ×2 (05:18→21:35)
[2024-08-26] MEDS: Enoxaparin 40 MG/0.4 ML Syringe SC (05:18)
[2024-08-26 06:18] LABS: Bedside Glucose 159 mg/dL (74-106)
[2024-08-26] MEDS: metFORMIN HCl 500 MG Tablet PO ×2 (09:29→16:40)
[2024-08-26] MEDS: Menthol/Lanolin/Calamine/Znox 113 GM Tube 1 APPLIC TOPICAL ×2 (09:29→21:35)
[2024-08-26] MEDS: Cyanocobalamin 500 MCG Tablet 1000 MCG PO (09:29)
[2024-08-26] MEDS: Senna/Docusate Sodium 1 Tablet PO ×2 (09:29→21:35)
[2024-08-26 09:31] VITALS: BP 118/64; PULSE 82; RESP 17; TEMP 36.8; O2SAT 90
--- NOTE | 2024-08-26 09:32 | CASEMGMT ---
Social Work IDT met with patient and for care plan meeting. Discussed patient's progress in PT/OT/SN. Educated to Medicare benefit. Provided pt/family with written communication on insurance process and copay coverage during stay. Pt's goal is to DC home with . Pt currently x2 assist with a FWW. Pt's baseline is mod I with rollator. can assist minimally, but is one person. SW broached topic of possibly needing an alternative DC plan if pt is unable to return to [facility] for to assist at home. Briefly discussed options as hiring CABLEWAY OPERATOR, [place] or SNF, all at an OOP cost. SW offered to assist with resources. Therapy will continue working with pt for further improvements. SW will continue to follow for DC planning assistance and support. Talia Owusu PREFLIGHT MECHANIC PROFESSIONAL DEVELOPMENT MANAGER
[2024-08-26 21:30] VITALS: PULSE 76; RESP 18; O2SAT 92
[2024-08-26] MEDS: Atorvastatin Calcium 10 MG Tablet PO (21:35)
[2024-08-26] MEDS: Tamsulosin HCl 0.4 MG Capsule PO (21:35)
[2024-08-27] MEDS: Levothyroxine 50 MCG Tablet PO (05:07)
[2024-08-27] MEDS: Enoxaparin 40 MG/0.4 ML Syringe SC (05:07)
[2024-08-27] MEDS: Nystatin Powder 15gm Bottle 1 APPLIC TOPICAL ×2 (05:07→20:45)
[2024-08-27 05:13] VITALS: PULSE 78; RESP 16
[2024-08-27 06:08] LABS: Bedside Glucose 161 mg/dL (74-106)
--- NOTE | 2024-08-27 09:25 | NURSING ---
Addendum entered by Melissa Nieto 08/27/24 10:51: Call back from office, they updated Dr. Mendez and he will come by and do consult today. Updated resident and , they were very appreciative. Addendum entered by Melissa Nieto 08/27/24 10:33: expressed frustration about inability to see Dr. Mendez while here. Asked about taking him to appt in office while on TCU. Let her know this RN would try. Called office and spoke with Aditi, she will have to check with physician and call back if she has permission to schedule an appt for while he's here. Addendum entered by Melissa Nieto 08/27/24 10:00: Call from office that Dr. Mendez will not see resident here, wants him to schedule appt after DC from TCU. Added to DC instructions. Resident updated. Original Note: Left VM with Dr. Mendez's office about consult, requested return call to ensure consult passed along to physician.
[2024-08-27 10:28] VITALS: BP 113/62; PULSE 79; RESP 16; TEMP 36.3; O2SAT 92
[2024-08-27] MEDS: Menthol/Lanolin/Calamine/Znox 113 GM Tube 1 APPLIC TOPICAL ×2 (10:30→20:44)
[2024-08-27] MEDS: metFORMIN HCl 500 MG Tablet PO ×2 (10:30→17:11)
[2024-08-27] MEDS: Senna/Docusate Sodium 1 Tablet PO ×2 (10:31→20:45)
[2024-08-27] MEDS: Cyanocobalamin 500 MCG Tablet 1000 MCG PO (10:31)
--- NOTE | 2024-08-27 11:52 | PCM.CONS.U ---
Assessment & Plan Assessment/Plan (1) BPH (benign prostatic hyperplasia): PLAN: stay on flomax needs a cysto to evaluate can follow up in my office for a cysto after discharge. HPI Consult Data Date of Consult: 08/27/24 HPI Narrative Reason for Consultation: recurrent UTIs HPI Narrative: PIPER TRAN, is a 74 M who presents to TCU, h/o recurrent UTIs had anohter UTI and ends up in hospital ill etc now in TCU, ct scan recently okay he doeshave BPH symptoms on flomax. [facility] Medical History (Updated 08/20/24 @ 19:[address] Greg Vigil MD) Type 2 diabetes mellitus BPH (benign prostatic hyperplasia) COPD (chronic obstructive pulmonary disease) Left hemiplegia HLD (hyperlipidemia) Traumatic brain injury Type 2 diabetes mellitus Home Medications ?Medication ?Instructions ?Recorded ?Last Taken ?Type levothyroxine 50 mcg tablet 25 mcg PO SUSA thyroid 04/18/18 04/13/18 History levothyroxine 50 mcg tablet 50 mcg PO MOTUWETHFR thyroid 04/18/18 04/18/18 History rosuvastatin 5 mg tablet 5 mg PO MOWEFR cholesterol 04/06/20 Unknown History acetaminophen 325 mg tablet 650 mg (2 x 325 mg) PO Q6H PRN PRN 04/11/20 Unknown Rx Pain Score 1-10/Temp > 100.7 F cyanocobalamin (vitamin B-12) 1,000 mcg PO DAILY replacement 08/17/24 Unknown History 1,000 mcg tablet (Vitamin B-12) metformin 500 mg tablet 500 mg PO BID diabetes 08/17/24 Unknown History tamsulosin 0.4 mg capsule 0.4 mg PO QHS urine 08/17/24 08/19/24 16:35 History ciprofloxacin HCl 500 mg tablet 500 mg PO BID UTI 4 days #9 tabs 08/20/24 Unknown Rx phenazopyridine 95 mg tablet (Azo 190 mg (2 x 95 mg) PO TID UTI 2 08/20/24 Unknown Rx Urinary Pain Relief) days #12 tabs Allergy/AdvReac Type Severity Reaction Status Date / Time No Known Allergies Allergy Verified 08/17/24 17:26 Surgical History Hx of appendectomy Social History (Updated 08/20/24 @ 19:[address] Greg Vigil MD) household members: spouse Smoking Status: Never smoker alcohol intake: never substance use type: does not use Lab / Micro Data 08/21/24 05:22 08/21/24 05:22 Labs: Laboratory Results - last 24 hr 08/27/24 05:47: POC Glucose 161 H
[2024-08-27 16:27] LABS: Bedside Glucose 160 mg/dL (74-106)
[2024-08-27] MEDS: Tamsulosin HCl 0.4 MG Capsule PO (20:45)
[2024-08-28] MEDS: Nystatin Powder 15gm Bottle 1 APPLIC TOPICAL ×2 (04:59→20:52)
[2024-08-28] MEDS: Enoxaparin 40 MG/0.4 ML Syringe SC (05:00)
[2024-08-28] MEDS: Levothyroxine 50 MCG Tablet PO (05:00)
[2024-08-28 06:21] LABS: Bedside Glucose 146 mg/dL (74-106)
[2024-08-28 07:09] LABS: Absolute Lymphocyte Count 2.34 X10^3/uL (0.83-4.51); Absolute Neutrophil Count 8.9 X10^3/uL (2.0-7.7); Basophil# 0.11 X10^3/uL; Basophil% 0.9 % (0-1); Eosinophil# 0.41 X10^3/uL; Eosinophils% 3.3 % (0-5); Hematocrit 43.2 % (40-54); Hemoglobin 13.8 g/dL (13.0-16.5); Lymphocyte # 2.34 X10^3/ul (0.83-4.51); Lymphocyte % 18.7 % (19-41); Mean Corp Hgb Conc 31.9 g/dL (32-36); Mean Corpuscular Hgb 27.4 pg (27.0-32.0); Mean Corpuscular Volume 85.7 fL (80-94); Mean Platelet Vol. 8.8 fl (6.2-12.0); Monocyte# 0.59 X10^3/uL; Monocyte% 4.7 % (0-10); NRBC Flagged by Analyzer 0 % (0-5); Neutrophil # 8.94 X10^3/uL (2.7-7.7); Neutrophil % 71.4 % (47-70); Platelet Count 339 K/mm3 (150-450); RBC Distribution Width CV 13.7 % (11.6-14.6); RBC Distribution Width SD 42.6 fl (35.1-43.9); Red Blood Count 5.04 M/mm3 (4.6-6.2); White Blood Count 12.5 K/mm3 (4.4-11.0)
[2024-08-28 07:32] LABS: Anion Gap 10 (5-15); BUN 11 mg/dL (4-19); BUN/Creat Ratio 20.2 RATIO (10-20); Calcium,Total 8.9 mg/dL (7.6-11.0); Carbon Dioxide 28.7 mmol/L (21.0-32.0); Chloride 100 mmol/L (98-108); Creatinine, Serum 0.56 mg/dL (0.70-1.20); EST Glomerular Filtration Rate 103 (>60); Estimated Creatinine Clearance 83.08 ml/min (50-250); Glucose 156 mg/dL (70-99); Potassium 4.3 mmol/L (3.3-5.1); Sodium Level 139 mmol/L (133-145)
--- NOTE | 2024-08-28 09:02 | NURSING ---
administrative operations coordinator Note; MDS for 08/27/2024 Complete
[2024-08-28 09:11] VITALS: BP 121/59; PULSE 80; RESP 16; TEMP 36.6; O2SAT 87
--- NOTE | 2024-08-28 09:15 | NURSING ---
Patient's Spo2 87% on RA. Patient states that is normal for him. States is it unusual for spo2 to be above 90%. Patient denies any shortness of breath. No respiratory distress noted. Respirations even and unlabored.
[2024-08-28] MEDS: metFORMIN HCl 500 MG Tablet PO ×2 (09:17→16:53)
[2024-08-28] MEDS: Menthol/Lanolin/Calamine/Znox 113 GM Tube 1 APPLIC TOPICAL ×2 (09:17→20:53)
[2024-08-28] MEDS: Cyanocobalamin 500 MCG Tablet 1000 MCG PO (09:18)
[2024-08-28] MEDS: Senna/Docusate Sodium 1 Tablet PO ×2 (09:18→20:52)
[2024-08-28] MEDS: Tuberculin,Purif.prot.deriv. 50 TU/ML Vial 0.1 ML ID (09:21)
[2024-08-28 17:00] LABS: Bedside Glucose 193 mg/dL (74-106)
[2024-08-28] MEDS: Atorvastatin Calcium 10 MG Tablet PO (20:51)
[2024-08-28] MEDS: Tamsulosin HCl 0.4 MG Capsule PO (20:52)
[2024-08-29] MEDS: Nystatin Powder 15gm Bottle 1 APPLIC TOPICAL ×2 (05:33→23:15)
[2024-08-29] MEDS: Levothyroxine 25 MCG TABLET PO (05:33)
[2024-08-29] MEDS: Enoxaparin 40 MG/0.4 ML Syringe SC (05:33)
[2024-08-29 05:42] VITALS: PULSE 72; RESP 18; O2SAT 96
[2024-08-29 06:11] LABS: Bedside Glucose 163 mg/dL (74-106)
[2024-08-29 10:29] VITALS: BP 109/63; PULSE 70; RESP 18; TEMP 36.3; O2SAT 91
[2024-08-29] MEDS: metFORMIN HCl 500 MG Tablet PO ×2 (10:32→16:49)
[2024-08-29] MEDS: Cyanocobalamin 500 MCG Tablet 1000 MCG PO (10:32)
[2024-08-29] MEDS: Senna/Docusate Sodium 1 Tablet PO ×2 (10:32→23:19)
[2024-08-29] MEDS: Menthol/Lanolin/Calamine/Znox 113 GM Tube 1 APPLIC TOPICAL ×2 (10:32→23:15)
[2024-08-29 16:52] LABS: Bedside Glucose 151 mg/dL (74-106)
[2024-08-29 22:45] VITALS: BP 112/57; TEMP 36.6; O2SAT 94
[2024-08-29] MEDS: Tamsulosin HCl 0.4 MG Capsule PO (23:19)
[2024-08-30] MEDS: Enoxaparin 40 MG/0.4 ML Syringe SC (06:22)
[2024-08-30] MEDS: Nystatin Powder 15gm Bottle 1 APPLIC TOPICAL ×2 (06:22→21:19)
[2024-08-30] MEDS: Levothyroxine 25 MCG TABLET PO (06:23)
[2024-08-30 06:39] LABS: Bedside Glucose 140 mg/dL (74-106)
--- NOTE | 2024-08-30 06:56 | NURSING ---
SpO2 between 89-90% on room air. Percentage slightly increases when instructed to perform deep breathing exercises. In no acute distress. O2 applied at 2 lpm via nc w/ humidification. Respirations even and unlabored. Will continue to monitor.
[2024-08-30] MEDS: metFORMIN HCl 500 MG Tablet PO ×2 (09:57→16:39)
[2024-08-30] MEDS: Cyanocobalamin 500 MCG Tablet 1000 MCG PO (09:57)
[2024-08-30] MEDS: Menthol/Lanolin/Calamine/Znox 113 GM Tube 1 APPLIC TOPICAL ×2 (09:57→21:19)
[2024-08-30] MEDS: Senna/Docusate Sodium 1 Tablet PO ×2 (09:57→21:18)
[2024-08-30 12:55] VITALS: BP 99/62; PULSE 80; RESP 16; TEMP 36.6; O2SAT 92
[2024-08-30 16:32] LABS: Bedside Glucose 183 mg/dL (74-106)
[2024-08-30] MEDS: Tamsulosin HCl 0.4 MG Capsule PO (21:18)
[2024-08-31 06:24] LABS: Bedside Glucose 144 mg/dL (74-106)
[2024-08-31] MEDS: Nystatin Powder 15gm Bottle 1 APPLIC TOPICAL ×2 (06:38→20:47)
[2024-08-31] MEDS: Enoxaparin 40 MG/0.4 ML Syringe SC (06:38)
[2024-08-31] MEDS: Levothyroxine 50 MCG Tablet PO (06:38)
[2024-08-31 09:27] VITALS: BP 114/61; RESP 16; O2SAT 91
[2024-08-31] MEDS: Cyanocobalamin 500 MCG Tablet 1000 MCG PO (09:29)
[2024-08-31] MEDS: Menthol/Lanolin/Calamine/Znox 113 GM Tube 1 APPLIC TOPICAL ×2 (09:29→20:47)
[2024-08-31] MEDS: Senna/Docusate Sodium 1 Tablet PO ×2 (09:29→20:47)
[2024-08-31] MEDS: metFORMIN HCl 500 MG Tablet PO ×2 (09:29→17:01)
--- NOTE | 2024-08-31 15:35 | NURSING ---
Addendum entered by Naomi Salomon 08/31/24 17:02: Pt continues to deny chest pain and discomfort. Vitals: bp-109/65, p-68, r-18, t-97.4, sp02-93% RA. Original Note: ~1530 TILE MOLDER notifies that pt is complaining of chest pain after transferring onto toilet. Pt reports pain to upper bilateral chest area began after [id number] w/ gait belt transfer to toilet. Describes pain as 3/10, pressure (at worst), currently 1/10. Vitals: bp-122/72, p-74, r-16, t-98.2, sp02-91% RA. No dyspnea noted, pt denies other symptoms. by 1535 pt denies chest pain, states he is feeling better and thinks chest discomfort was caused by gait belt.
[2024-08-31 16:35] LABS: Bedside Glucose 157 mg/dL (74-106)
[2024-08-31] MEDS: Tamsulosin HCl 0.4 MG Capsule PO (20:47)
[2024-08-31] MEDS: Atorvastatin Calcium 10 MG Tablet PO (20:47)
[2024-09-01] MEDS: Nystatin Powder 15gm Bottle 1 APPLIC TOPICAL ×2 (06:08→22:16)
[2024-09-01] MEDS: Enoxaparin 40 MG/0.4 ML Syringe SC (06:08)
[2024-09-01] MEDS: Levothyroxine 50 MCG Tablet PO (06:08)
[2024-09-01 06:13] LABS: Bedside Glucose 135 mg/dL (74-106)
[2024-09-01 07:20] VITALS: O2SAT 90
[2024-09-01 07:38] VITALS: BP 100/59; PULSE 63; RESP 16; TEMP 35.8; O2SAT 89
--- NOTE | 2024-09-01 07:42 | NURSING ---
PT SAT 88-89% ON RM AIR, DENIES SOB, REFUSING TO USE OXYGEN. WILL MONITOR.
[2024-09-01] MEDS: Cyanocobalamin 500 MCG Tablet 1000 MCG PO (07:44)
[2024-09-01] MEDS: Senna/Docusate Sodium 1 Tablet PO ×2 (07:44→22:16)
[2024-09-01] MEDS: metFORMIN HCl 500 MG Tablet PO ×2 (07:44→16:24)
[2024-09-01] MEDS: Menthol/Lanolin/Calamine/Znox 113 GM Tube 1 APPLIC TOPICAL ×2 (07:45→22:16)
--- NOTE | 2024-09-01 08:12 | MDS.RN ---
Information for the MDS was obtained from review of the clinical record, interview of resident, staff, and direct observation of resident?s care.
[2024-09-01 08:33] VITALS: BMI 34.8
--- NOTE | 2024-09-01 15:03 | CASEMGMT ---
Social Work SW spoke with pt and at bedside after IDT meeting. Cnc Router Operator also present and pt/ both consented for this worker to speak with diamond assorter present. SW explained IDT is concerned with homegoing and being able to assist. SW acknowledged pt and have their own routine at home in their environment, however, therapy is recommending attend therapy training to ensure. agreed. has car tx scheduled 09/02. SW suggested attending OT session to practice with showers and toileting. stated as long as pt can ambulate and tx. SW confirmed pt can ambulate, but the ADL tasks require more physical assistance and IDT wants to ensure and pt are safe at home. Both agree and accepting OT training. SW scheduled with and CARNEY for 09/03. SW will continue to follow. Talia Owusu MSW ENTERPRISE SYSTEMS ARCHITECT
[2024-09-01 16:10] VITALS: BMI 34.8
[2024-09-01 17:09] LABS: Bedside Glucose 140 mg/dL (74-106)
[2024-09-01] MEDS: Tamsulosin HCl 0.4 MG Capsule PO (22:16)
[2024-09-01 22:30] VITALS: RESP 18; O2SAT 87
[2024-09-02] MEDS: Levothyroxine 50 MCG Tablet PO (05:26)
[2024-09-02] MEDS: Nystatin Powder 15gm Bottle 1 APPLIC TOPICAL ×2 (05:27→19:54)
[2024-09-02] MEDS: Enoxaparin 40 MG/0.4 ML Syringe SC (05:27)
[2024-09-02 06:25] LABS: Bedside Glucose 163 mg/dL (74-106)
[2024-09-02 09:38] VITALS: BP 106/62; PULSE 71; RESP 16; TEMP 36.4; O2SAT 91
[2024-09-02] MEDS: Cyanocobalamin 500 MCG Tablet 1000 MCG PO (09:40)
[2024-09-02] MEDS: metFORMIN HCl 500 MG Tablet PO ×2 (09:40→17:12)
[2024-09-02] MEDS: Menthol/Lanolin/Calamine/Znox 113 GM Tube 1 APPLIC TOPICAL ×2 (09:41→19:54)
[2024-09-02 17:36] LABS: Bedside Glucose 166 mg/dL (74-106)
[2024-09-02] MEDS: Atorvastatin Calcium 10 MG Tablet PO (19:54)
[2024-09-02] MEDS: Senna/Docusate Sodium 1 Tablet PO (19:54)
[2024-09-02] MEDS: Tamsulosin HCl 0.4 MG Capsule PO (19:54)
[2024-09-03] MEDS: Levothyroxine 50 MCG Tablet PO (05:26)
[2024-09-03] MEDS: Nystatin Powder 15gm Bottle 1 APPLIC TOPICAL ×2 (05:27→21:06)
[2024-09-03] MEDS: Enoxaparin 40 MG/0.4 ML Syringe SC (05:27)
[2024-09-03 06:39] LABS: Bedside Glucose 139 mg/dL (74-106)
[2024-09-03 07:44] VITALS: BP 105/66; PULSE 71; RESP 18; TEMP 36.5; O2SAT 88
[2024-09-03] MEDS: Cyanocobalamin 500 MCG Tablet 1000 MCG PO (07:47)
[2024-09-03] MEDS: metFORMIN HCl 500 MG Tablet PO ×2 (07:47→16:38)
[2024-09-03] MEDS: Menthol/Lanolin/Calamine/Znox 113 GM Tube 1 APPLIC TOPICAL ×2 (07:48→21:06)
--- NOTE | 2024-09-03 11:52 | NURSING ---
unable to st cath pt d/t anatomy, clean catch obtained sent to lab. pt at chairside. call light in reach.
[2024-09-03 12:05] LABS: Mucous, Urine 0 SEEN /hpf (<or=2+); Squamous Epithelial Cells - UA 0 SEEN /hpf (0-5)
[2024-09-03 12:06] LABS: Color, Urine Yellow (Yellow); Glucose, Dipstick Normal (Normal); Ketone-Dipstick Negative (Negative); Leukocyte Esterase-Dipstick 500 /ul (Negative); Nitrite-Dipstick Positive (Negative); Occult Blood-Urine 250 /ul (Negative); Protein-Dipstick 30 mg/dl (Negative); Urine Bilirubin Dipstick Negative (Negative); Urine Clarity Sl. Cloudy (Clear); Urine Urobilinogen Normal (Normal)
[2024-09-03 12:12] LABS: Bacteria 2+ /hpf (None Seen); White Blood Cells >100 SEEN /hpf (0-5)
[2024-09-03 12:13] LABS: Red Blood Cells-Urine 0-5 SEEN /hpf (0-5)
--- NOTE | 2024-09-03 12:19 | NURSING ---
Addendum entered by Susie Oliver 09/03/24 12:58: new order for cipro, and pt updated. Original Note: pt c/o burning with urination again, pt had just finished ATB's on 08/24/[address] zavala notified by meal cooker early AM, orders for UA culture, sent to lab. UA positive. dr zavala updated, awaiting orders. concerned since this keeps happening. Dr Mendez saw 08/27 and needs to do cysto, but states will do as outpt. requesting that this issue be dealt with while here, concerned he will fall again and injure himself worse.
[2024-09-03] MEDS: Ciprofloxacin 500 MG Tablet PO ×2 (12:55→21:06)
[2024-09-03 13:06] VITALS: O2SAT 90
[2024-09-03 16:56] LABS: Bedside Glucose 137 mg/dL (74-106)
[2024-09-03 18:21] VITALS: PULSE 72; RESP 18; O2SAT 91
[2024-09-03] MEDS: Tamsulosin HCl 0.4 MG Capsule PO (21:06)
[2024-09-03] MEDS: Senna/Docusate Sodium 1 Tablet PO (21:09)
[2024-09-04] MEDS: Nystatin Powder 15gm Bottle 1 APPLIC TOPICAL ×2 (05:55→22:29)
[2024-09-04] MEDS: Levothyroxine 50 MCG Tablet PO (05:55)
[2024-09-04] MEDS: Enoxaparin 40 MG/0.4 ML Syringe SC (05:55)
[2024-09-04 06:09] LABS: Absolute Neutrophil Count 5.7 X10^3/uL (2.0-7.7); Basophil# 0.11 X10^3/uL; Basophil% 1.2 % (0-1); Eosinophils% 4.3 % (0-5); Hematocrit 41.9 % (40-54); Hemoglobin 13.4 g/dL (13.0-16.5); Lymphocyte % 23.9 % (19-41); Mean Corpuscular Hgb 27.5 pg (27.0-32.0); Mean Platelet Vol. 8.9 fl (6.2-12.0); Monocyte# 0.75 X10^3/uL; Monocyte% 8.1 % (0-10); NRBC Flagged by Analyzer 0 % (0-5); Neutrophil # 5.69 X10^3/uL (2.7-7.7); Neutrophil % 61.7 % (47-70); Platelet Count 380 K/mm3 (150-450); RBC Distribution Width CV 13.6 % (11.6-14.6); RBC Distribution Width SD 42.8 fl (35.1-43.9); Red Blood Count 4.87 M/mm3 (4.6-6.2); White Blood Count 9.2 K/mm3 (4.4-11.0)
[2024-09-04 06:21] LABS: Bedside Glucose 162 mg/dL (74-106)
[2024-09-04 07:14] LABS: Anion Gap 11 (5-15); BUN 12 mg/dL (4-19); BUN/Creat Ratio 17.4 RATIO (10-20); Calcium,Total 9.1 mg/dL (7.6-11.0); Carbon Dioxide 28.8 mmol/L (21.0-32.0); Chloride 101 mmol/L (98-108); Creatinine, Serum 0.67 mg/dL (0.70-1.20); EST Glomerular Filtration Rate 97 (>60); Glucose 156 mg/dL (70-99); Potassium 4.1 mmol/L (3.3-5.1); Sodium Level 141 mmol/L (133-145)
[2024-09-04 09:39] VITALS: BP 106/69; PULSE 69; RESP 17; TEMP 36.3; O2SAT 92
[2024-09-04] MEDS: Menthol/Lanolin/Calamine/Znox 113 GM Tube 1 APPLIC TOPICAL ×2 (09:43→22:28)
[2024-09-04] MEDS: metFORMIN HCl 500 MG Tablet PO ×2 (09:43→17:30)
[2024-09-04] MEDS: Ciprofloxacin 500 MG Tablet PO ×2 (09:44→22:29)
[2024-09-04] MEDS: Cyanocobalamin 500 MCG Tablet 1000 MCG PO (09:44)
[2024-09-04] MEDS: Senna/Docusate Sodium 1 Tablet PO ×2 (09:44→22:31)
--- NOTE | 2024-09-04 10:53 | CASEMGMT ---
Social Work SW spoke with pt's to follow up on training with therapy. and therapy report pt did well, and is satisfied with taking care of pt at home. did inform this worker that pt has a new UTI and is on ATB. SW confirmed. Stop date 09/13. stated a consult is placed for urologist and the goal is for pt to see urologist next week, per . SW suggested having pt remain next week to see Dr and complete course of ATB, to ensure to changes, then this worker and assist in setting DC date. agreeable. SW will continue to follow. Talia Owusu FOREIGN LANGUAGES DEPARTMENT CHAIR BODY SHOP MANAGER
[2024-09-04 17:12] LABS: Bedside Glucose 166 mg/dL (74-106)
[2024-09-04] MEDS: Tamsulosin HCl 0.4 MG Capsule PO (22:29)
[2024-09-04] MEDS: Atorvastatin Calcium 10 MG Tablet PO (22:29)
[2024-09-05] MEDS: Levothyroxine 25 MCG TABLET PO (05:09)
[2024-09-05] MEDS: Nystatin Powder 15gm Bottle 1 APPLIC TOPICAL ×2 (05:10→22:15)
[2024-09-05] MEDS: Enoxaparin 40 MG/0.4 ML Syringe SC (05:10)
[2024-09-05 06:36] LABS: Bedside Glucose 145 mg/dL (74-106)
[2024-09-05 08:51] VITALS: BP 108/61; PULSE 66; RESP 17; TEMP 36.1; O2SAT 90
[2024-09-05] MEDS: metFORMIN HCl 500 MG Tablet PO ×2 (08:54→17:55)
[2024-09-05] MEDS: Menthol/Lanolin/Calamine/Znox 113 GM Tube 1 APPLIC TOPICAL ×2 (08:54→22:15)
[2024-09-05] MEDS: Senna/Docusate Sodium 1 Tablet PO ×2 (08:55→22:17)
[2024-09-05] MEDS: Ciprofloxacin 500 MG Tablet PO ×2 (08:55→22:17)
[2024-09-05] MEDS: Cyanocobalamin 500 MCG Tablet 1000 MCG PO (08:55)
[2024-09-05 16:43] LABS: Bedside Glucose 186 mg/dL (74-106)
[2024-09-05 22:15] VITALS: BP 109/66; PULSE 69
[2024-09-05] MEDS: Tamsulosin HCl 0.4 MG Capsule PO (22:18)
[2024-09-05 22:30] VITALS: O2SAT 90
[2024-09-06] MEDS: Enoxaparin 40 MG/0.4 ML Syringe SC (05:45)
[2024-09-06] MEDS: Nystatin Powder 15gm Bottle 1 APPLIC TOPICAL ×2 (05:45→22:14)
[2024-09-06] MEDS: Levothyroxine 25 MCG TABLET PO (05:45)
[2024-09-06 08:13] VITALS: BP 109/57; PULSE 72; RESP 18; TEMP 36.3; O2SAT 93
[2024-09-06] MEDS: Ciprofloxacin 500 MG Tablet PO ×2 (08:17→22:14)
[2024-09-06] MEDS: metFORMIN HCl 500 MG Tablet PO ×2 (08:17→16:34)
[2024-09-06] MEDS: Menthol/Lanolin/Calamine/Znox 113 GM Tube 1 APPLIC TOPICAL ×2 (08:17→22:14)
[2024-09-06] MEDS: Cyanocobalamin 500 MCG Tablet 1000 MCG PO (08:18)
[2024-09-06] MEDS: Senna/Docusate Sodium 1 Tablet PO ×2 (08:18→22:14)
[2024-09-06 10:35] LABS: Bedside Glucose 166 mg/dL (74-106)
[2024-09-06 14:19] VITALS: O2SAT 94
[2024-09-06 16:39] LABS: Bedside Glucose 188 mg/dL (74-106)
[2024-09-06] MEDS: Tamsulosin HCl 0.4 MG Capsule PO (22:14)
[2024-09-06 22:20] LABS: Bedside Glucose 162 mg/dL (74-106)
[2024-09-07] MEDS: Enoxaparin 40 MG/0.4 ML Syringe SC (06:19)
[2024-09-07] MEDS: Levothyroxine 50 MCG Tablet PO (06:19)
[2024-09-07 06:32] LABS: Bedside Glucose 166 mg/dL (74-106)
--- NOTE | 2024-09-07 08:57 | NURSING ---
Addendum entered by Melissa Nieto 09/07/24 11:23: Call back from Dr. Mendez's office, they can take resident at the office for cystoscopy tomorrow at 2pm. Original Note: Left VM with Dr. Mendez's office about doing cystoscopy while resident here on TCU. Await return call.
[2024-09-07 09:46] VITALS: BP 111/64; PULSE 70; RESP 16; TEMP 35.9; O2SAT 90
[2024-09-07] MEDS: Cyanocobalamin 500 MCG Tablet 1000 MCG PO (10:00)
[2024-09-07] MEDS: metFORMIN HCl 500 MG Tablet PO ×2 (10:00→17:04)
[2024-09-07] MEDS: Ciprofloxacin 500 MG Tablet PO ×2 (10:00→22:55)
[2024-09-07] MEDS: Senna/Docusate Sodium 1 Tablet PO ×2 (10:00→22:55)
[2024-09-07] MEDS: Menthol/Lanolin/Calamine/Znox 113 GM Tube 1 APPLIC TOPICAL ×2 (10:02→22:56)
[2024-09-07] MEDS: Nystatin Powder 15gm Bottle 1 APPLIC TOPICAL ×2 (10:02→22:55)
[2024-09-07 16:47] LABS: Bedside Glucose 166 mg/dL (74-106)
[2024-09-07 22:40] VITALS: RESP 18; O2SAT 96
[2024-09-07] MEDS: Tamsulosin HCl 0.4 MG Capsule PO (22:55)
[2024-09-07] MEDS: Atorvastatin Calcium 10 MG Tablet PO (22:55)
[2024-09-08] MEDS: Levothyroxine 50 MCG Tablet PO (06:06)
[2024-09-08] MEDS: Enoxaparin 40 MG/0.4 ML Syringe SC (06:06)
[2024-09-08 06:11] VITALS: PULSE 84
[2024-09-08 06:18] LABS: Bedside Glucose 147 mg/dL (74-106)
[2024-09-08 09:00] VITALS: BP 118/63; PULSE 72; RESP 18; TEMP 36.1; O2SAT 91
[2024-09-08] MEDS: metFORMIN HCl 500 MG Tablet PO ×2 (09:51→16:26)
[2024-09-08] MEDS: Menthol/Lanolin/Calamine/Znox 113 GM Tube 1 APPLIC TOPICAL ×2 (09:52→21:05)
[2024-09-08] MEDS: Nystatin Powder 15gm Bottle 1 APPLIC TOPICAL ×2 (09:53→21:05)
[2024-09-08] MEDS: Ciprofloxacin 500 MG Tablet PO ×2 (09:53→21:05)
[2024-09-08] MEDS: Senna/Docusate Sodium 1 Tablet PO ×2 (09:54→21:05)
[2024-09-08] MEDS: Cyanocobalamin 500 MCG Tablet 1000 MCG PO (09:54)
--- NOTE | 2024-09-08 14:00 | NURSING ---
pt off unit to Dr Mendez office for cystoscope via WC, at side
--- NOTE | 2024-09-08 14:58 | NURSING ---
Addendum entered by Susie Oliver 09/08/24 15:42: correction: states 09/30 for next attempt Original Note: Returned from Dr. Mendez's office, unable to complete cystoscopy. Per physician reports scar tissue making procedure difficult, has appt to attempt again on 09/28/24.
[2024-09-08 15:47] VITALS: BP 117/69; PULSE 71; RESP 16; TEMP 36.8; O2SAT 96
--- NOTE | 2024-09-08 15:53 | NURSING ---
charting reviewed with student that is used for educational and learning purposes.
[2024-09-08 16:29] VITALS: BMI 35.3
[2024-09-08 16:51] LABS: Bedside Glucose 120 mg/dL (74-106)
[2024-09-08] MEDS: Tamsulosin HCl 0.4 MG Capsule PO (21:05)
--- NOTE | 2024-09-09 00:32 | NURSING ---
Patient denying need for oxygen at HS. This nurse checked patient's SpO2 during rounds, staying around 94-95% at rest. Patient educated that if SpO2 drops, oxygen usage is highly encouraged. Patient verbalized understanding and stated, I am okay for now, thank you. Call light in patient's reach, patient denies further assistance.
[2024-09-09] MEDS: Levothyroxine 50 MCG Tablet PO (05:33)
[2024-09-09] MEDS: Enoxaparin 40 MG/0.4 ML Syringe SC (05:33)
[2024-09-09 06:33] LABS: Bedside Glucose 144 mg/dL (74-106)
[2024-09-09 07:00] VITALS: O2SAT 93
[2024-09-09 07:46] VITALS: BP 108/65; PULSE 67; RESP 16; TEMP 36.4; O2SAT 93
[2024-09-09] MEDS: Senna/Docusate Sodium 1 Tablet PO ×2 (07:51→20:40)
[2024-09-09] MEDS: metFORMIN HCl 500 MG Tablet PO ×2 (07:51→17:39)
[2024-09-09] MEDS: Cyanocobalamin 500 MCG Tablet 1000 MCG PO (07:51)
[2024-09-09] MEDS: Menthol/Lanolin/Calamine/Znox 113 GM Tube 1 APPLIC TOPICAL ×2 (07:51→20:39)
[2024-09-09] MEDS: Ciprofloxacin 500 MG Tablet PO ×2 (07:51→20:39)
[2024-09-09] MEDS: Nystatin Powder 15gm Bottle 1 APPLIC TOPICAL ×2 (07:52→20:40)
--- NOTE | 2024-09-09 16:16 | CASEMGMT ---
Social Work presented to this worker's office inquiring about DC plans. stated pt was seen by urology this date and surgery is scheduled for 09/29 (?) and inquired if pt needed to remain in TCU until that surgery. SW denied and offered to set DC date next week. Pt's PO UTI ATB stop 09/13. Educated pt will not receive therapy day of DC or Saturday. requesting to set DC date for 09/13. SW agreed. SW offered to coordinate skilled HHC. agreed. SW inquired about preference for HHC and offered list of options. stated they used [facility] prior. SW educated [facility] does not have SN and d/t to urology symptoms, recommending a nurse at home. SW offered to refer to [facility]. agreed. denied DME needs and can transport at DC. Plan: DC home with 09/13, [facility] PT/OT/SN/DANA Owusu HORN PLAYER HUNTING SALES ASSOCIATE
[2024-09-09 17:02] LABS: Bedside Glucose 180 mg/dL (74-106)
--- NOTE | 2024-09-09 17:04 | PCM.DC.SUM ---
Providers Date of Admission: 08/20/24 Primary Care Physician: Dr. Trisha Barros MD Consultations 08/27/24 12:11 Consult: Urology Routine Consulting Provider: Fito Mendez Reason for Consult: recurrent UTI EMERGENT Consult: No MD Notified: Yes Date Notified: 08/27/24 Time Notified: 10:00 Method of Notification: Answering Service Comments:: Cancelled. Then physician came to see pt. Reason For Visit: UTI & WEAKNESS Diagnosis Discharge Diagnosis (1) BPH (benign prostatic hyperplasia): Status: Acute Code(s): N40.0 - Benign prostatic hyperplasia without lower urinary tract symptoms Plan 74 year old male with below past medical history hospitalized for weakness/fall 2/2 urinary tract infection, complicated by left arm pain (fracture ruled out), recurrent urinary tract infection, bph, urinary incontinence, admitted to TCU with debility, here for rehabilitation, strengthening, prior to discharge home with . Debility - PT/OT. Pain - Tylenol 1000mg q6 prn pain (1-10). Bowel - senna/colace 1 tablet bid, Magnesium citrate 300mL po daily prn. Adult immunization - Administer pneumonia vaccine, covid vaccine, flu vaccine as appropriate. DVT prophylaxis - Lovenox 40mg sc daily. E. Coli urinary tract infection - Cipro 500mg bid thru 08/24/2024, Azo 190mg tid thru 08/24/2024. Hyperlipidemia - Atorvastatin 10mg MWF. Vitamin B12 deficiency - B12 1000mcg daily. Hypothyroidism - Levothyroxine 50mcg 5 days/week, 25mcg 2 days/week. Skin irritation - Calmoseptine topical bid. Diabetes Mellitus II - Metformin 500mg bid. Tinea Corporis - Nystatin topical bid. BPH/urinary incontinence/recurrent urinary tract infection - Tamsulosin 0.4mg qhs, consult Dr. Mendez, resident may benefit from TURP. Medications at Discharge Home Medications levothyroxine 50 mcg tablet 25 mcg PO SUSA thyroid 04/18/18 levothyroxine 50 mcg tablet 50 mcg PO MOTUWETHFR thyroid 04/18/18 rosuvastatin 5 mg tablet 5 mg PO MOWEFR cholesterol 04/06/20 cyanocobalamin (vitamin B-12) 1,000 mcg tablet (Vitamin B-12) 1,000 mcg PO DAILY replacement 08/17/24 metformin 500 mg tablet 500 mg PO BID diabetes 08/17/24 tamsulosin 0.4 mg capsule 0.4 mg PO QHS 30 days #30 caps 09/09/24 Hospital Course Operations None Procedures None Summary of Care Provided Minutes Spent on Discharge: 35 Hospital Course: 74 year old male with below past medical history hospitalized for weakness/fall 2/2 urinary tract infection, complicated by left arm pain (fracture ruled out), recurrent urinary tract infection, bph, urinary incontinence, admitted to TCU with debility, here for rehabilitation, strengthening, prior to discharge home with . 08/27/2024 Dr. Mendez: (1) BPH (benign prostatic hyperplasia): PLAN: stay on flomax needs a cysto to evaluate can follow up in my office for a cysto after discharge. Cystoscopy scheduled 09/30/2024. Discharge home with 09/13/2024, [facility] PT/OT/SN/CORTEZ. Physical Exam Const alert General Appearance: cooperative HEENT normocephalic Eyes PERRL and EOMs intact bilaterally Neck supple, no JVD and no carotid bruits Resp normal respiratory effort, normal air movement and clear to auscultation bilaterally Cardio regular rate and regular rhythm GI normal to inspection, nondistended, normoactive bowel sounds, non-tender and non-distended Extremity normal capillary refill General Extremity: Negative for edema Skin no rashes or lesions noted General Skin Exam: no breakdown Psych affect normal Appearance: appropriate Weight / BMI Weight Weight: 96.162 kg Body Mass Index (BMI) 35.3 ABG / Lab / Microbiology Data 09/04/24 05:24 09/04/24 05:24 Laboratory: Laboratory Results - last 24 hr 09/09/24 06:07: POC Glucose 144 H 09/09/24 16:44: POC Glucose 180 H Microbiology: Microbiology 09/03/24 11:50 Urine, Catheterized Urine Culture - Final Presumptive E. coli D/C Instructions Discharge Diet: No restrictions Discharge Activity: Return to Normal Activity, May Shower and Use Walker Call your doctor if you observe: Fever of 101 or Higher, Inability to urinate, Inability to have a bowel movement, Shortness of breath, Dizziness, Fainting spells, Swelling in the ankles, Chest pain and Uncontrolled pain DC O2, CPAP, BIPAP Needs Home O2 Discharge instructions: No Please Follow Up WithJulia Mendez When: Cytoscopy 09/30/2024. Meaningful Use Info Meaningful Use Meaningful Use Diagnoses (Choose all that apply): None applicable Ischemic Stroke Statin Dosing Therapy Reference: STATIN DOSE THERAPY REFERENCE: * Patients > 75 years receive moderate or high dose statin therapy. * Patients 75 years or YOUNGER should receive HIGH intensity statin dose unless contraindicated. You will be required to document reason for non-treatment if statin daily dose does not meet guidelines. HIGH DOSE STATIN THERAPY DAILY Atorvastatin > than or = to 40 mg Rosuvastatin > than or = to 20 mg Amlodipine + Atorvastatin > than or = to 2.5/40 mg Ezetimibe + Simvastatin 10/80 mg Simvastatin 80mg Discharge Plan Admission Admit Date/Time: 08/20/24 16:03 Primary Reason for Your Visit: Debility. Attending Provider: Greg Vigil Chi Primary Care Provider: Trisha Barros Consulting Providers: Fito Mendez Instructions Additional Instructions / Restrictions: Discharge home with 09/13/2024, [facility] [place] PT/OT/SN/CORTEZ. Discharge Orders/Prescriptions Prescriptions: New tamsulosin 0.4 mg Capsule 0.4 mg PO QHS 30 Days Qty: 30 0RF Continued levothyroxine 50 MCG tablet 25 mcg PO SUSA Patient Comments: Take one(1) tablet daily Mon-Sat, 1/2 tablet on Sat & Sun levothyroxine 50 MCG tablet 50 mcg PO MOTUWETHFR Patient Comments: Take one(1) tablet daily Mon-Sat, 1/2 tablet on Sat & Sun rosuvastatin 5 MG tablet 5 mg PO MOWEFR metformin 500 mg tablet 500 mg PO BID cyanocobalamin (vitamin B-12) [Vitamin B-12] 1,000 mcg tablet 1,000 mcg PO DAILY Discontinued acetaminophen 325 MG tablet 650 mg PO Q6H PRN PRN (Reason: Pain Score 1-10/Temp > 100.7 F) 0RF tamsulosin 0.4 mg capsule 0.4 mg PO QHS ciprofloxacin HCl 500 mg tablet 500 mg PO BID 4 Days Qty: 9 0RF phenazopyridine [Azo Urinary Pain Relief] 95 mg Tablet 190 mg PO TID 2 Days Qty: 12 0RF Referrals / Follow Up: Fito Mendez MD [Med Staff - Active Staff] - (f/u OP for cystoscopy) Trisha Barros MD [Primary Care Provider] - 09/16/24 10:00 am (Please arrive by 9:45a with insurance card, co-pay if any & list of medications) Disposition Disposition (needs filled in before D/C Order can be placed): Home Health Service
[2024-09-09] MEDS: Tamsulosin HCl 0.4 MG Capsule PO (20:40)
[2024-09-09] MEDS: Atorvastatin Calcium 10 MG Tablet PO (20:40)
[2024-09-09 20:44] VITALS: PULSE 68; RESP 16
[2024-09-10] MEDS: Levothyroxine 50 MCG Tablet PO (05:47)
[2024-09-10] MEDS: Enoxaparin 40 MG/0.4 ML Syringe SC (05:47)
[2024-09-10 05:53] VITALS: PULSE 64; RESP 18
[2024-09-10 06:28] LABS: Bedside Glucose 140 mg/dL (74-106)
[2024-09-10 08:01] VITALS: BP 109/60; PULSE 66; RESP 16; TEMP 36.2; O2SAT 90
[2024-09-10] MEDS: metFORMIN HCl 500 MG Tablet PO ×2 (08:04→17:37)
[2024-09-10] MEDS: Ciprofloxacin 500 MG Tablet PO ×2 (08:05→20:25)
[2024-09-10] MEDS: Menthol/Lanolin/Calamine/Znox 113 GM Tube 1 APPLIC TOPICAL ×2 (08:05→20:25)
[2024-09-10] MEDS: Cyanocobalamin 500 MCG Tablet 1000 MCG PO (08:05)
[2024-09-10] MEDS: Nystatin Powder 15gm Bottle 1 APPLIC TOPICAL ×2 (08:05→20:24)
[2024-09-10] MEDS: Senna/Docusate Sodium 1 Tablet PO ×2 (08:05→20:26)
--- NOTE | 2024-09-10 10:26 | CASEMGMT ---
Addendum entered by Talia Owusu 09/10/24 13:29: [facility] can accept. SW updated that [facility] can accept with anticipated SOC date 09/14, pending signed PCP orders. expressed understanding. Original Note: Social Work presented to this worker's office stating she changed her mind and does not want to choose [facility]. SW provided list of skilled HHC agencies within geographical area, INN with insurance, that include quality and resource data via [employer] guide. reviewed list and chose [facility]. - SW phoned referral to [facility]. 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
[2024-09-10 16:46] LABS: Bedside Glucose 159 mg/dL (74-106)
[2024-09-10] MEDS: Tamsulosin HCl 0.4 MG Capsule PO (20:26)
[2024-09-11] MEDS: Levothyroxine 50 MCG Tablet PO (05:17)
[2024-09-11] MEDS: Enoxaparin 40 MG/0.4 ML Syringe SC (05:17)
[2024-09-11 06:03] LABS: Absolute Lymphocyte Count 2.49 X10^3/uL (0.83-4.51); Absolute Neutrophil Count 5.2 X10^3/uL (2.0-7.7); Basophil# 0.09 X10^3/uL; Eosinophil# 0.39 X10^3/uL; Eosinophils% 4.4 % (0-5); Hematocrit 41.7 % (40-54); Hemoglobin 13.2 g/dL (13.0-16.5); Lymphocyte # 2.49 X10^3/ul (0.83-4.51); Mean Corp Hgb Conc 31.7 g/dL (32-36); Mean Corpuscular Hgb 27.3 pg (27.0-32.0); Mean Corpuscular Volume 86.2 fL (80-94); Mean Platelet Vol. 8.8 fl (6.2-12.0); Monocyte# 0.65 X10^3/uL; Monocyte% 7.3 % (0-10); NRBC Flagged by Analyzer 0 % (0-5); Neutrophil # 5.21 X10^3/uL (2.7-7.7); Neutrophil % 58.6 % (47-70); Platelet Count 309 K/mm3 (150-450); RBC Distribution Width CV 13.7 % (11.6-14.6); Red Blood Count 4.84 M/mm3 (4.6-6.2); White Blood Count 8.9 K/mm3 (4.4-11.0)
[2024-09-11 06:32] LABS: Bedside Glucose 143 mg/dL (74-106)
[2024-09-11 06:48] LABS: BUN 10 mg/dL (4-19); Chloride 100 mmol/L (98-108); EST Glomerular Filtration Rate 102 (>60); Potassium 4.2 mmol/L (3.3-5.1); Sodium Level 139 mmol/L (133-145)
[2024-09-11 08:25] VITALS: BP 100/55; PULSE 68; RESP 16; TEMP 36.4; O2SAT 94
[2024-09-11] MEDS: Ciprofloxacin 500 MG Tablet PO ×2 (08:26→19:56)
[2024-09-11] MEDS: Menthol/Lanolin/Calamine/Znox 113 GM Tube 1 APPLIC TOPICAL ×2 (08:26→19:55)
[2024-09-11] MEDS: metFORMIN HCl 500 MG Tablet PO ×2 (08:26→17:31)
[2024-09-11] MEDS: Cyanocobalamin 500 MCG Tablet 1000 MCG PO (08:27)
[2024-09-11] MEDS: Senna/Docusate Sodium 1 Tablet PO ×2 (08:27→19:56)
[2024-09-11] MEDS: Nystatin Powder 15gm Bottle 1 APPLIC TOPICAL ×2 (08:27→19:55)
--- NOTE | 2024-09-11 13:06 | MDS.RN ---
Pain assessment for MDS complete.
--- NOTE | 2024-09-11 13:47 | CASEMGMT ---
Social Work SW completed BIMS () and PHQ-2 () for MDS assessment. Talia Owusu SPEECH THERAPY ASSISTANT TAPE TRANSFERRER
[2024-09-11 13:55] LABS: Anion Gap 20 (5-15); BUN/Creat Ratio 8.5 RATIO (10-20); Carbon Dioxide 19.4 mmol/L (21.0-32.0); Creatinine, Serum 1.18 mg/dL (0.70-1.20); Glucose 118 mg/dL (70-99)
[2024-09-11 16:36] LABS: Bedside Glucose 154 mg/dL (74-106)
[2024-09-11] MEDS: Tamsulosin HCl 0.4 MG Capsule PO (19:55)
[2024-09-11] MEDS: Atorvastatin Calcium 10 MG Tablet PO (19:56)
[2024-09-11 20:01] VITALS: RESP 16; O2SAT 94
[2024-09-12 04:09] VITALS: PULSE 68; RESP 16; O2SAT 98
[2024-09-12] MEDS: Enoxaparin 40 MG/0.4 ML Syringe SC (05:22)
[2024-09-12] MEDS: Levothyroxine 25 MCG TABLET PO (05:22)
[2024-09-12 06:12] LABS: Bedside Glucose 155 mg/dL (74-106)
[2024-09-12] MEDS: Senna/Docusate Sodium 1 Tablet PO ×2 (08:55→20:17)
[2024-09-12] MEDS: Ciprofloxacin 500 MG Tablet PO ×2 (08:55→20:18)
[2024-09-12] MEDS: metFORMIN HCl 500 MG Tablet PO ×2 (08:55→16:07)
[2024-09-12] MEDS: Cyanocobalamin 500 MCG Tablet 1000 MCG PO (08:55)
[2024-09-12] MEDS: Nystatin Powder 15gm Bottle 1 APPLIC TOPICAL ×2 (08:55→20:16)
[2024-09-12] MEDS: Menthol/Lanolin/Calamine/Znox 113 GM Tube 1 APPLIC TOPICAL ×2 (08:56→20:16)
[2024-09-12 09:57] VITALS: BP 114/64; PULSE 71; RESP 17; TEMP 36.6; O2SAT 94
[2024-09-12 17:15] LABS: Bedside Glucose 160 mg/dL (74-106)
[2024-09-12] MEDS: Tamsulosin HCl 0.4 MG Capsule PO (20:18)
[2024-09-13 04:35] VITALS: PULSE 71; RESP 18; O2SAT 93
[2024-09-13] MEDS: Levothyroxine 25 MCG TABLET PO (05:09)
[2024-09-13] MEDS: Enoxaparin 40 MG/0.4 ML Syringe SC (05:09)
[2024-09-13 06:32] LABS: Bedside Glucose 144 mg/dL (74-106)
[2024-09-13] MEDS: metFORMIN HCl 500 MG Tablet PO (08:33)
[2024-09-13] MEDS: Cyanocobalamin 500 MCG Tablet 1000 MCG PO (08:33)
[2024-09-13] MEDS: Nystatin Powder 15gm Bottle 1 APPLIC TOPICAL (08:33)
[2024-09-13] MEDS: Ciprofloxacin 500 MG Tablet PO (08:33)
[2024-09-13] MEDS: Menthol/Lanolin/Calamine/Znox 113 GM Tube 1 APPLIC TOPICAL (08:33)
[2024-09-13] MEDS: Senna/Docusate Sodium 1 Tablet PO (08:33)
[2024-09-13 08:48] VITALS: BP 111/60; PULSE 70; RESP 18; TEMP 36.4; O2SAT 95
== END 2024-09-13 10:20 | disposition home health service (06) | DRG 690 ==
PROVIDERS: Admitting Provider Family Medicine Geriatric Medicine; PCP Internal Medicine; Referring Provider Family Medicine Geriatric Medicine; Visit Provider Family Medicine Geriatric Medicine
DX: N39.0 Urinary tract infection, site not specified (principal); I69.854 Hemiplegia and hemiparesis following other cerebrovascular disease affecting left non-dominant side; E11.65 Type 2 diabetes mellitus with hyperglycemia; E03.9 Hypothyroidism, unspecified; B35.4 Tinea corporis; B96.20 Unspecified Escherichia coli [E. coli] as the cause of diseases classified elsewhere; J44.9 Chronic obstructive pulmonary disease, unspecified; M79.602 Pain in left arm; E78.5 Hyperlipidemia, unspecified; E53.8 Deficiency of other specified B group vitamins; N40.1 Benign prostatic hyperplasia with lower urinary tract symptoms; Z79.84 Long term (current) use of oral hypoglycemic drugs; N32.81 Overactive bladder; Z79.890 Hormone replacement therapy; R32 Unspecified urinary incontinence; Z79.899 Other long term (current) drug therapy
CPT/HCPCS: 36415; 76536; 80048; 81001; 82962; 85025; 87086; 87088; 87186; 97110; 97112; 97116; 97162; 97166; 97530; 97535; 97802

== ENCOUNTER → 2025-04-27 | Outpatient (CLI) | payer MEDICARE, OTHER, SELFPAY ==
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
== END | disposition home or self-care (01) ==
LOC: RAD 12:42
PROVIDERS: PCP Internal Medicine; Referring Provider Internal Medicine; Visit Provider Internal Medicine
DX: R13.12 Dysphagia, oropharyngeal phase (principal)
CPT/HCPCS: 74230; 92611